=== PATIENT | male | born 1995 | race Caucasian/White ===

== ENCOUNTER 2022-07-04 13:45 | Outpatient (REF) | payer MEDICAID, SELFPAY ==
[2022-07-08 14:48] LABS: Glutamic acid decarboxylase Ab 7 IU/mL (<5)
== END 2022-07-04 13:46 | disposition home or self-care (01) ==
LOC: HO.LAB 13:45
PROVIDERS: PCP Registered Nurse; Visit Provider Internal Medicine Endocrinology, Diabetes & Metabolism
DX: E10.65 Type 1 diabetes mellitus with hyperglycemia (principal)
CPT/HCPCS: 36415; 82947; 86341; 99202

== ENCOUNTER 2022-09-06 17:14 | Emergency (ER) | payer MEDICAID, SELFPAY ==
[2022-09-06 17:19] VITALS: BP 136/91; PULSE 91; RESP 16; TEMP 36.6; O2SAT 98; BMI 24.9
--- NOTE | 2022-09-06 17:26 | ED_ITS ---
HPI - Recheck/Abnormal Lab/Rx General Chief Complaint: Recheck/Abnormal Lab/Rx <JOSEPH Campos - Last Filed: 09/06/22 17:28> Stated Complaint: ?high blood sugar <JOSEPH Campos - Last Filed: 09/06/22 17:28> Time Seen by Provider: 09/06/22 18:18 <JOSEPH Campos - Last Filed: 09/06/22 17:28> Source: patient <Kelsea Cintron MD - Last Filed: 09/06/22 21:38> Mode of arrival: ambulatory <Kelsea Cintron MD - Last Filed: 09/06/22 21:38> History of Present Illness HPI narrative: 27-year-old male with history of type 1 diabetes, states he has a low supply of his regular insulin and noted that he drinks some beer over the weekend and had increased urinary frequency last night but otherwise denies any fever/chills/nausea/vomiting/diarrhea and has otherwise been feeling well. Patient states he did take his long-acting insulin this morning but also had a breakfast chicken fried steak/eggs/juice. <Kelsea Cintron MD - Last Filed: 09/06/22 21:38> Related Data Home Medications: Home Medications Medication Instructions Recorded Confirmed blood sugar diagnostic (FreeStyle #10 ea 07/04/22 Lite Strips) flash glucose scanning reader #1 ea 07/04/22 (FreeStyle Ning 2 [place]) flash glucose sensor (FreeStyle #1 ea 07/04/22 Ning 2 Sensor kit) insulin glargine 100 unit/mL (3 30 unit subcut 07/04/22 mL) subcutaneous pen (Lantus Solostar U-100 Insulin) insulin lispro 100 unit/mL subcut 07/04/22 subcutaneous pen lancets 33 gauge (TRUEplus Lancets) #100 ea 07/04/22 pen needle, diabetic 32 gauge x #50 ea 07/04/22 (BD Ultra-Fine Maria D Pen Needle) Previous Rx's Medication Instructions Recorded insulin glargine 100 unit/mL (3 30 unit (0.3 mL) subcut QAM #15 mL 09/06/22 mL) subcutaneous pen (Lantus Solostar U-100 Insulin) <JOSEPH Campos - Last Filed: 09/06/22 17:28> Allergies/Adverse Reactions: Allergies Allergy/AdvReac Type Severity Reaction Status Date / Time No Known Allergies Allergy Verified 07/04/22 13:30 <JOSEPH Campos - Last Filed: 09/06/22 17:28> Review of Systems Review of Systems: Pertinent positives and negatives as stated in HPI <Kelsea Cintron MD - Last Filed: 09/06/22 21:38> PMFSH Past Medical History Source: nursing notes reviewed <Kelsea Cintron MD - Last Filed: 09/06/22 21:38> Medical History: Medical History Uncontrolled type 1 diabetes mellitus with hyperglycemia <JOSEPH Campos - Last Filed: 09/06/22 17:28> Surgical History: Surgical History Hx of vasectomy <JOSEPH Campos - Last Filed: 09/06/22 17:28> Family History Family History: Family History Father Type 1 diabetes <JOSEPH Campos - Last Filed: 09/06/22 17:28> Social History Social History: Social History Household Members: Significant Other Alcohol intake: current Alcohol intake frequency: a few times a week Patient Tobacco Use Status: Never used Tobacco Smoked in Last 30 Days: No Use of substances other than those prescribed or required for medical reasons: No Advance Directives: No Advance Directives Information Provided: No <JOSEPH Campos - Last Filed: 09/06/22 17:28> Physical Exam Vital Signs: Vital Signs: Last Vital Signs Temp 98.2 F 09/06/22 20:14 Pulse 90 09/06/22 20:14 Resp 18 09/06/22 20:14 BP 147/94 H 09/06/22 20:14 Pulse Ox 98 09/06/22 20:14 O2 Del Method 09/06/22 20:14 BMI result Body Mass Index 24.9 <JOSEPH Campos - Last Filed: 09/06/22 17:28> Vital Signs: Last Vital Signs Temp 98.2 F 09/06/22 20:14 Pulse 90 09/06/22 20:14 Resp 18 09/06/22 20:14 BP 147/94 H 09/06/22 20:14 Pulse Ox 98 09/06/22 20:14 O2 Del Method 09/06/22 20:14 BMI result Body Mass Index 24.9 VITAL SIGNS: Reviewed. GENERAL: Well developed, well nourished, in no acute distress, smells like ketones. HEAD: Normocephalic/atraumatic EYES: PERRLA, EOMI LUNGS: Normal breath sounds, no tachypnea/wheeze/rhonchi/rales. SpO2<98> CARDIOVASCULAR: Regular rate and rhythm without noted murmurs ABDOMEN: Soft, non-tender, non-distended with bowel sounds. MUSCULOSKELETAL: No tenderness, deformities, or effusions noted on gross inspection. EXTREMITIES: No cyanosis, clubbing or edema. SKIN: Inspection of the skin reveals no rashes NEUROLOGIC: Alert and oriented x 4. Strength and sensation to light touch were grossly intact x 4. <Kelsea Cintron MD - Last Filed: 09/06/22 21:38> Course Course Course Narrative: RME - 27 yo male with history of poorly controlled DM1 (A1c ~13%) dx age 21 on Lantus 32 units BID and Lispro SS AC/HS who presents to the ER for evaluation of high blood sugar at home despite insulin compliance. +polyuria and polydipsia. Upset stomach but no N/V/D. POC HI in triage. Will get labs to r/o DKA, although less likely given he has been taking his basal insulin. IVF ordered from triage. <JOSEPH Campos - Last Filed: 09/06/22 17:28> Medications Administered Discontinued Medications Generic Name Dose Route Start Last Admin Trade Name Freq PRN Reason Stop Dose Admin Sodium Chloride 1,000 mls @ 999 mls/hr 09/06/22 17:30 09/06/22 18:25 Ns IVCONT 09/06/22 18:30 999 mls/hr .Q1H1M DANITA Administration Insulin Human Lispro 20 unit 09/06/22 18:49 09/06/22 18:54 Insulin Lispro 100 Unit/Ml 3 Ml Vial SUBCUT 09/06/22 18:50 20 unit ONCE ONE Administration <JOSEPH Campos - Last Filed: 09/06/22 17:28> Medications Administered Discontinued Medications Generic Name Dose Route Start Last Admin Trade Name Nathaniel PRN Reason Stop Dose Admin Sodium Chloride 1,000 mls @ 999 mls/hr 09/06/22 17:30 09/06/22 18:25 Ns IVCONT 09/06/22 18:30 999 mls/hr .Q1H1M DANITA Administration Insulin Human Lispro 20 unit 09/06/22 18:49 09/06/22 18:54 Insulin Lispro 100 Unit/Ml 3 Ml Vial SUBCUT 09/06/22 18:50 20 unit ONCE ONE Administration <Kelsea Cintron MD - Last Filed: 09/06/22 21:38> Medical Decision Making Medical Decision Making [facility] Narrative: 27-year-old male with known type 1 diabetes and although he does smell like ketones, he is not tachypneic nor is he tachycardic. On a quick review of his lab work there is no evidence acidosis or anion gap, on questioning the joseph dickson about the amount of short-acting insulin that he would take for a glucose in the 3-400 range he is endorse that this would be 20 units, I ordered 20 units list pro subcutaneous, patient is receiving IV fluids and acetone levels pending. Lab work will be repeated at the 2 hour selma after initial labs. Patient otherwise appears well. 2051: On review of all investigations, repeat investigations, my interpretation is that patient had an episode of hyper glycemia not consistent with DKA or HHS but with noted dehydration likely a combination of poor diabetic control as well as diet choices. Patient has stated that he is running low on his glucose and has not called his casing splitter, but states he has a follow-up appointment with this casing splitter on September 13. He will be discharged with an insulin pen. <Kelsea Cintron MD - Last Filed: 09/06/22 21:38> Differential Diagnosis Differential Diagnoses: The differential diagnosis associated with the presentation includes <Kelsea Cintron MD - Last Filed: 09/06/22 21:38> Please see the discussion above <Kelsea Cintron MD - Last Filed: 09/06/22 21:38> Lab Data [facility] Lab Attestation statement: I reviewed the patient's lab results. <Kelsea Cintron MD - Last Filed: 09/06/22 21:38> Please see the discussion above <Kelsea Cintron MD - Last Filed: 09/06/22 21:38> Result Diagrams: 09/06/22 17:57 09/06/22 17:57 <JOSEPH Campos - Last Filed: 09/06/22 17:28> Labs: Lab Results 09/06/22 09/06/22 09/06/22 Range/Units 17:25 17:57 17:57 WBC 4.7 L (4.8-10.8) X10*3/uL RBC 5.15 (4.60-5.80) X10*6/uL Hgb 15.8 (14.0-18.0) g/dl Hct 44.1 (42.0-52.0) % MCV 85.6 (80.0-98.0) fL MCH 30.7 (27.0-33.0) pg MCHC 35.8 (31.0-36.0) g/dl RDW 11.9 (11.0-16.0) % Plt Count 151 L (160-400) X10*3/uL MPV 12.3 (9.4-12.4) fL Immature Gran % (Auto) 0.2 (0.0-0.4) % Neut % (Auto) 61.1 (45-73) % Lymph % (Auto) 27.7 (20-40) % [place] % (Auto) 8.3 (2-11) % Eos % (Auto) 2.3 (0-4) % Baso % (Auto) 0.4 (0-2) % Lymph # (Auto) 1.3 (1.2-4.9) X10*3/uL [place] # (Auto) 0.4 (0.1-1.2) X10*3/uL Eos # (Auto) 0.1 (0.0-0.4) X10*3/uL Baso # (Auto) 0.0 (0.0-0.2) X10*3/uL Abs Immat Gran (auto) 0.01 (0.00-0.03) X10*3/uL Absolute Neuts (auto) 2.9 (2.0-8.3) x10*3/uL Absolute Nucleated RBC 0.000 (0.0-0.012) X10*3/uL Nucleated RBC % (auto) 0.0 (0.0-0.2) /100WBC VBG pH (7.32-7.43) VBG pCO2 mmHg VBG pO2 mmHg VBG HCO3 (22-26) mmol/L VBG O2 Saturation % VBG Base Excess mmol/L Sodium 129 L (135-145) mmol/L Potassium 4.7 (3.3-5.1) mmol/L Chloride 95 L (96-108) mmol/L Carbon Dioxide 25 (22-29) mmol/L Anion Gap 14 (12-20) BUN 11 (9-16) mg/dL Creatinine 1.23 (0.5-1.4) mg/dL Estim Creat Clear Calc 98.1 Estimated GFR > 60 POC Glucose > 600 H* (60-115) mg/dL Random Glucose 738 H* (60-115) mg/dL Calcium 9.5 (8.4-10.2) mg/dL Magnesium 1.9 (1.6-2.6) mg/dL Total Bilirubin 0.3 (0.0-1.0) mg/dL Direct Bilirubin < 0.2 (0.0-0.5) mg/dL AST 14 (5-37) U/L ALT 24 (0-40) U/L Alkaline Phosphatase 106 (39-117) U/L Total Protein 6.9 (6.5-8.0) g/dL Albumin 4.3 (3.5-5.0) g/dL Lipase 22 (8-78) U/L Acetone, Qual Negative (Negative) 09/06/22 09/06/22 09/06/22 Range/Units 18:29 19:50 20:17 WBC (4.8-10.8) X10*3/uL RBC (4.60-5.80) X10*6/uL Hgb (14.0-18.0) g/dl Hct (42.0-52.0) % MCV (80.0-98.0) fL MCH (27.0-33.0) pg MCHC (31.0-36.0) g/dl RDW (11.0-16.0) % Plt Count (160-400) X10*3/uL MPV (9.4-12.4) fL Immature Gran % (Auto) (0.0-0.4) % Neut % (Auto) (45-73) % Lymph % (Auto) (20-40) % [place] % (Auto) (2-11) % Eos % (Auto) (0-4) % Baso % (Auto) (0-2) % Lymph # (Auto) (1.2-4.9) X10*3/uL [place] # (Auto) (0.1-1.2) X10*3/uL Eos # (Auto) (0.0-0.4) X10*3/uL Baso # (Auto) (0.0-0.2) X10*3/uL Abs Immat Gran (auto) (0.00-0.03) X10*3/uL Absolute Neuts (auto) (2.0-8.3) x10*3/uL Absolute Nucleated RBC (0.0-0.012) X10*3/uL Nucleated RBC % (auto) (0.0-0.2) /100WBC VBG pH 7.40 (7.32-7.43) VBG pCO2 35 mmHg VBG pO2 89 mmHg VBG HCO3 22 (22-26) mmol/L VBG O2 Saturation 97.0 % VBG Base Excess -1.6 mmol/L Sodium 139 (135-145) mmol/L Potassium 3.8 (3.3-5.1) mmol/L Chloride 103 (96-108) mmol/L Carbon Dioxide 29 (22-29) mmol/L Anion Gap 11 L (12-20) BUN 11 (9-16) mg/dL Creatinine 0.89 (0.5-1.4) mg/dL Estim Creat Clear Calc 135.6 Estimated GFR > 60 POC Glucose 266 H (60-115) mg/dL Random Glucose 205 H (60-115) mg/dL Calcium 9.6 (8.4-10.2) mg/dL Magnesium (1.6-2.6) mg/dL Total Bilirubin (0.0-1.0) mg/dL Direct Bilirubin (0.0-0.5) mg/dL AST (5-37) U/L ALT (0-40) U/L Alkaline Phosphatase (39-117) U/L Total Protein (6.5-8.0) g/dL Albumin (3.5-5.0) g/dL Lipase (8-78) U/L Acetone, Qual (Negative) <JOSEPH Campos - Last Filed: 09/06/22 17:28> Lab Results 09/06/22 09/06/22 09/06/22 Range/Units 17:25 17:57 17:57 WBC 4.7 L (4.8-10.8) X10*3/uL RBC 5.15 (4.60-5.80) X10*6/uL Hgb 15.8 (14.0-18.0) g/dl Hct 44.1 (42.0-52.0) % MCV 85.6 (80.0-98.0) fL MCH 30.7 (27.0-33.0) pg MCHC 35.8 (31.0-36.0) g/dl RDW 11.9 (11.0-16.0) % Plt Count 151 L (160-400) X10*3/uL MPV 12.3 (9.4-12.4) fL Immature Gran % (Auto) 0.2 (0.0-0.4) % Neut % (Auto) 61.1 (45-73) % Lymph % (Auto) 27.7 (20-40) % [place] % (Auto) 8.3 (2-11) % Eos % (Auto) 2.3 (0-4) % Baso % (Auto) 0.4 (0-2) % Lymph # (Auto) 1.3 (1.2-4.9) X10*3/uL [place] # (Auto) 0.4 (0.1-1.2) X10*3/uL Eos # (Auto) 0.1 (0.0-0.4) X10*3/uL Baso # (Auto) 0.0 (0.0-0.2) X10*3/uL Abs Immat Gran (auto) 0.01 (0.00-0.03) X10*3/uL Absolute Neuts (auto) 2.9 (2.0-8.3) x10*3/uL Absolute Nucleated RBC 0.000 (0.0-0.012) X10*3/uL Nucleated RBC % (auto) 0.0 (0.0-0.2) /100WBC VBG pH (7.32-7.43) VBG pCO2 mmHg VBG pO2 mmHg VBG HCO3 (22-26) mmol/L VBG O2 Saturation % VBG Base Excess mmol/L Sodium 129 L (135-145) mmol/L Potassium 4.7 (3.3-5.1) mmol/L Chloride 95 L (96-108) mmol/L Carbon Dioxide 25 (22-29) mmol/L Anion Gap 14 (12-20) BUN 11 (9-16) mg/dL Creatinine 1.23 (0.5-1.4) mg/dL Estim Creat Clear Calc 98.1 Estimated GFR > 60 POC Glucose > 600 H* (60-115) mg/dL Random Glucose 738 H* (60-115) mg/dL Calcium 9.5 (8.4-10.2) mg/dL Magnesium 1.9 (1.6-2.6) mg/dL Total Bilirubin 0.3 (0.0-1.0) mg/dL Direct Bilirubin < 0.2 (0.0-0.5) mg/dL AST 14 (5-37) U/L ALT 24 (0-40) U/L Alkaline Phosphatase 106 (39-117) U/L Total Protein 6.9 (6.5-8.0) g/dL Albumin 4.3 (3.5-5.0) g/dL Lipase 22 (8-78) U/L Acetone, Qual Negative (Negative) 09/06/22 09/06/22 09/06/22 Range/Units 18:29 19:50 20:17 WBC (4.8-10.8) X10*3/uL RBC (4.60-5.80) X10*6/uL Hgb (14.0-18.0) g/dl Hct (42.0-52.0) % MCV (80.0-98.0) fL MCH (27.0-33.0) pg MCHC (31.0-36.0) g/dl RDW (11.0-16.0) % Plt Count (160-400) X10*3/uL MPV (9.4-12.4) fL Immature Gran % (Auto) (0.0-0.4) % Neut % (Auto) (45-73) % Lymph % (Auto) (20-40) % [place] % (Auto) (2-11) % Eos % (Auto) (0-4) % Baso % (Auto) (0-2) % Lymph # (Auto) (1.2-4.9) X10*3/uL [place] # (Auto) (0.1-1.2) X10*3/uL Eos # (Auto) (0.0-0.4) X10*3/uL Baso # (Auto) (0.0-0.2) X10*3/uL Abs Immat Gran (auto) (0.00-0.03) X10*3/uL Absolute Neuts (auto) (2.0-8.3) x10*3/uL Absolute Nucleated RBC (0.0-0.012) X10*3/uL Nucleated RBC % (auto) (0.0-0.2) /100WBC VBG pH 7.40 (7.32-7.43) VBG pCO2 35 mmHg VBG pO2 89 mmHg VBG HCO3 22 (22-26) mmol/L VBG O2 Saturation 97.0 % VBG Base Excess -1.6 mmol/L Sodium 139 (135-145) mmol/L Potassium 3.8 (3.3-5.1) mmol/L Chloride 103 (96-108) mmol/L Carbon Dioxide 29 (22-29) mmol/L Anion Gap 11 L (12-20) BUN 11 (9-16) mg/dL Creatinine 0.89 (0.5-1.4) mg/dL Estim Creat Clear Calc 135.6 Estimated GFR > 60 POC Glucose 266 H (60-115) mg/dL Random Glucose 205 H (60-115) mg/dL Calcium 9.6 (8.4-10.2) mg/dL Magnesium (1.6-2.6) mg/dL Total Bilirubin (0.0-1.0) mg/dL Direct Bilirubin (0.0-0.5) mg/dL AST (5-37) U/L ALT (0-40) U/L Alkaline Phosphatase (39-117) U/L Total Protein (6.5-8.0) g/dL Albumin (3.5-5.0) g/dL Lipase (8-78) U/L Acetone, Qual (Negative) <Kelsea Cintron MD - Last Filed: 09/06/22 21:38> External Record Review External record reviewed: Office record, Outpatient record and Prior outpatient labs <Kelsea Cintron MD - Last Filed: 09/06/22 21:38> Chronic Conditions Patient?s care impacted by: Diabetes <Kelsea Cintron MD - Last Filed: 09/06/22 21:38> Critical Care Time Critical Care Time Critical Care Time: Yes <Kelsea Cintron MD - Last Filed: 09/06/22 21:38> Total Critical Care Time: 45 <Kelsea Cintron MD - Last Filed: 09/06/22 21:38> Attestation: I personally attest to this time spent taking care of the patient. <Kelsea Cintron MD - Last Filed: 09/06/22 21:38> Discharge Plan Discharge Clinical Impression: Uncontrolled type 1 diabetes mellitus with hyperglycemia, Hyperglycemia <JOSEPH Campos - Last Filed: 09/06/22 17:28> Patient Disposition: Home, Self-Care <JOSEPH Campos - Last Filed: 09/06/22 17:28> Instructions: Dehydration (ED), Diabetic Hyperglycemia (ED), Diabetes Type 1: Management (ED) <JOSEPH Campos - Last Filed: 09/06/22 17:28> Additional Instructions: 1. Resume all home medications as prescribed. Continue to drink plenty of water and control the number of carbs that you intake. 2. Please keep your scheduled appointment with Dr. Torres on 09/13/2022 as stated by you. 3. Follow-up with your primary care provider in the next 1-2 days for re- evaluation further outpatient management. Return to the ER for worsening symptoms. <JOSEPH Campos - Last Filed: 09/06/22 17:28> Prescriptions: New insulin glargine [Lantus Solostar U-100 Insulin] 100 unit/mL (3 mL) insulin pen 30 unit subcut QAM Qty: 15 0RF No Action (DME) FreeStyle Ning 2 [place] Misc See Rx Instructions .ROUTE DIRECTED Qty: 1 Rx Instructions: As directed (DME) FreeStyle Ning 2 Sensor Kit See Rx Instructions .ROUTE DIRECTED Qty: 1 Rx Instructions: As directed insulin glargine [Lantus Solostar U-100 Insulin] 100 unit/mL (3 mL) insulin pen 30 unit subcut insulin lispro 100 unit/mL insulin pen subcut (DME) FreeStyle Lite Strips Strip See Rx Instructions .ROUTE QID Qty: 10 Rx Instructions: As directed (DME) pen needle, diabetic [BD Ultra-Fine Maria D Pen Needle] 32 gauge x 5/32 needle See Rx Instructions .ROUTE .MEDSUPPLY Qty: 50 Rx Instructions: As directed 7 times day (DME) lancets [TRUEplus Lancets] 33 gauge misc See Rx Instructions .ROUTE QID Qty: 100 Rx Instructions: As directed <JOSEPH Campos - Last Filed: 09/06/22 17:28> Referrals: CosmeEmily carrizales FNP [Primary Care Provider] - Delvis Torres MD [Physician] - <JOSEPH Campos - Last Filed: 09/06/22 17:28> Stand Alone Forms: Work/School Release <JOSEPH Campos - Last Filed: 09/06/22 17:28>
[2022-09-06 17:28] LABS: Glucose, Whole Blood > 600 mg/dL (60-115)
[2022-09-06 18:05] LABS: MANUAL DIFF FLAG NO
[2022-09-06 18:10] LABS: Basophils Percent Auto 0.4 % (0-2); Eosinophils Absolute Auto 0.1 X10*3/uL (0.0-0.4); Eosinophils Percent Auto 2.3 % (0-4); Hematocrit 44.1 % (42.0-52.0); Hemoglobin 15.8 g/dl (14.0-18.0); Imm Gran Abs Auto 0.01 X10*3/uL (0.00-0.03); Imm Gran Pct Auto 0.2 % (0.0-0.4); Lymphocytes Absolute Auto 1.3 X10*3/uL (1.2-4.9); Lymphocytes Percent Auto 27.7 % (20-40); Mean Corpuscular HGB Conc 35.8 g/dl (31.0-36.0); Mean Corpuscular Hemoglobin 30.7 pg (27.0-33.0); Mean Corpuscular Volume 85.6 fL (80.0-98.0); Mean Platelet Volume 12.3 fL (9.4-12.4); Monocytes Absolute Auto 0.4 X10*3/uL (0.1-1.2); Monocytes Percent Auto 8.3 % (2-11); Neutrophils Absolute Auto 2.9 x10*3/uL (2.0-8.3); Neutrophils Percent Auto 61.1 % (45-73); Platelet Count 151 X10*3/uL (160-400); Red Blood Count 5.15 X10*6/uL (4.60-5.80); Red Cell Distribution Width 11.9 % (11.0-16.0); White Blood Count 4.7 X10*3/uL (4.8-10.8)
[2022-09-06] MEDS: 0.9 % Sodium Chloride 1,000 ML 999 ML IVCONT (18:25)
--- NOTE | 2022-09-06 18:27 | PC.NURSE ---
patient alert, oriented x4. denies N/V. iv started in the left AC and fluids running per MAR. call arriaza placed within reach
[2022-09-06 18:28] LABS: Alanine Aminotransferase 24 U/L (0-40); Albumin Level 4.3 g/dL (3.5-5.0); Alkaline Phosphatase 106 U/L (39-117); Anion Gap 14 (12-20); Aspartate Amino Transferase 14 U/L (5-37); Bilirubin Direct < 0.2 mg/dL (0.0-0.5); Bilirubin Total 0.3 mg/dL (0.0-1.0); Blood Urea Nitrogen 11 mg/dL (9-16); Calcium 9.5 mg/dL (8.4-10.2); Carbon Dioxide 25 mmol/L (22-29); Chloride 95 mmol/L (96-108); Creatinine Clr Calc Pharmacy 98.1; Estimated Glomerular Filt Rate > 60; Glucose Random 738 mg/dL (60-115); Lipase 22 U/L (8-78); Magnesium 1.9 mg/dL (1.6-2.6); Potassium 4.7 mmol/L (3.3-5.1); Sodium 129 mmol/L (135-145); Total Protein 6.9 g/dL (6.5-8.0)
[2022-09-06 18:35] VITALS: BP 141/83; PULSE 80; RESP 13; TEMP 36.7; O2SAT 98
[2022-09-06 18:37] LABS: VBG Base Excess -1.6 mmol/L; VBG HCO3 22 mmol/L (22-26); VBG pCO2 35 mmHg; VBG pO2 89 mmHg
[2022-09-06 18:39] LABS: Venous Blood Gas Refer to POC result
[2022-09-06] MEDS: Insulin Lispro 100 UNIT/ML 3 ML VIAL 20 UNIT SUBCUT (18:54)
[2022-09-06 19:57] LABS: Glucose, Whole Blood 266 mg/dL (60-115)
[2022-09-06 20:14] VITALS: BP 147/94; PULSE 90; RESP 18; TEMP 36.8; O2SAT 98
--- NOTE | 2022-09-06 20:15 | PC.NURSE ---
resting quietly. aware of plan for repeat labs and depending on results, possible 2nd liter of NS. denies all complaints. plans to call endo for insulin Rx tomorrow am. NAD. skin pwd. unlabored resp.
[2022-09-06 20:36] LABS: Acetone, serum QL Negative (Negative)
[2022-09-06 20:42] LABS: Anion Gap 11 (12-20); Blood Urea Nitrogen 11 mg/dL (9-16); Calcium 9.6 mg/dL (8.4-10.2); Carbon Dioxide 29 mmol/L (22-29); Chloride 103 mmol/L (96-108); Creatinine Clr Calc Pharmacy 135.6; Estimated Glomerular Filt Rate > 60; Glucose Random 205 mg/dL (60-115); Potassium 3.8 mmol/L (3.3-5.1); Sodium 139 mmol/L (135-145)
[2022-09-08 09:02] LABS: VBG HCO3 22 mmol/L (22-26); VBG pCO2 35 mmHg; VBG pH 7.41 (7.32-7.43); VBG pO2 71 mmHg
== END 2022-09-06 21:58 | disposition home or self-care (01) ==
PROVIDERS: Physician Assistant; Emergency Provider Student in an Organized Health Care Education/Training Program; PCP Registered Nurse
DX: E10.65 Type 1 diabetes mellitus with hyperglycemia (principal); Z79.899 Other long term (current) drug therapy; Z79.4 Long term (current) use of insulin
CPT/HCPCS: 36415; 80048; 80076; 82009; 82803; 82947; 83690; 83735; 85025; 99283; 99284

== ENCOUNTER → 2022-10-03 08:39 | Outpatient (BNVA) | payer MEDICAID, SELFPAY | PROVIDERS: PCP Registered Nurse; Visit Provider Internal Medicine Endocrinology, Diabetes & Metabolism | DX: E10.65 Type 1 diabetes mellitus with hyperglycemia (principal) | CPT/HCPCS: 82947; 83036; 99212 ==

== ENCOUNTER → 2022-10-04 10:05 | Outpatient (BNVA) | payer MEDICAID, SELFPAY | PROVIDERS: PCP Registered Nurse; Visit Provider Dietitian, Registered | DX: E10.65 Type 1 diabetes mellitus with hyperglycemia (principal) | CPT/HCPCS: 97802 ==

== ENCOUNTER 2023-03-07 17:38 | Outpatient (REF) | payer MEDICAID, SELFPAY ==
[2023-03-07 20:13] LABS: Influenza A PCR NEGATIVE (Negative); Influenza B PCR NEGATIVE (Negative); Resp Syncy Virus RNA Qual PCR NEGATIVE (Negative); SARS COV2 PCR INHOUSE NEGATIVE (Negative)
== END 2023-03-07 17:39 | disposition home or self-care (01) ==
LOC: HO.HHCLNP 17:38
PROVIDERS: Visit Provider Emergency Medicine
DX: J06.9 Acute upper respiratory infection, unspecified (principal)
CPT/HCPCS: 0241U; 87070

== ENCOUNTER 2023-08-16 03:39 | Emergency (ER) | payer MEDICAID, SELFPAY ==
--- NOTE | 2023-08-16 | ECG_ITS ---
Test Reason : CHEST PAIN Blood Pressure : / mmHG Vent. Rate : 078 BPM Atrial Rate : 078 BPM P-R Int : 168 ms QRS Dur : 084 ms QT Int : 420 ms P-R-T Axes : 055 059 046 degrees QTc Int : 478 ms Normal sinus rhythm Nonspecific ST abnormality Abnormal ECG No previous ECGs available Referred By: Generic ED Physician Electronically Signed By:CARRIE MIRELES MD
[2023-08-16 03:55] VITALS: BMI 24.6
--- NOTE | 2023-08-16 04:01 | ED_ITS ---
HPI - Chest Pain General Chief Complaint: Chest Pain Stated Complaint: cp Time Seen by Provider: 08/16/23 04:00 History of Present Illness HPI narrative: Patient type 1 diabetic apparently was walking for last 4 hours as his car broke down when he was walking [place] noticed shortness of breath with chest palpitation pain tightness feeling it does have history of asthma after resting felt better no history of coronary artery disease blood sugar by EMS was 390 patient missed his insulin tonight no history of substance abuse no chest pain at this time Related Data Home Medications Medication Instructions Recorded Confirmed blood sugar diagnostic (FreeStyle #10 ea 07/04/22 Lite Strips) flash glucose scanning reader #1 ea 07/04/22 (FreeStyle Ning 2 [place]) flash glucose sensor (FreeStyle #1 ea 07/04/22 Ning 2 Sensor kit) insulin glargine 100 unit/mL (3 30 unit subcut 07/04/22 mL) subcutaneous pen (Lantus Solostar U-100 Insulin) insulin lispro 100 unit/mL subcut 07/04/22 subcutaneous pen lancets 33 gauge (TRUEplus Lancets) #100 ea 07/04/22 pen needle, diabetic 32 gauge x #50 ea 07/04/22 5/32 (BD Ultra-Fine Maria D Pen Needle) alcohol swabs (Alcohol Prep Pads) 0 pad topical 10/03/22 blood-glucose meter (FreeStyle #1 ea 10/03/22 [place] Lite kit) insulin glargine 100 unit/mL (3 32 unit subcut QAM 10/03/22 mL) subcutaneous pen (Lantus Solostar U-100 Insulin) olmesartan 5 mg tablet 5 mg PO QAM 10/03/22 Previous Rx's Medication Instructions Recorded albuterol sulfate 90 mcg/actuation 2 puff inhalation Q4-6H PRN 08/16/23 aerosol inhaler (ProAir HFA) shortness of breath or wheezing #8.5 grams Allergies Allergy/AdvReac Type Severity Reaction Status Date / Time No Known Allergies Allergy Verified 10/03/22 08:43 Review of Systems 2 Review of Systems: Yes all other systems are reviewed and are negative [facility] Past Medical History Medical History Uncontrolled type 1 diabetes mellitus with hyperglycemia Surgical History Hx of vasectomy Family History Family History Father Type 1 diabetes Social History Social History Household Members: Significant Other Alcohol intake: current Alcohol intake frequency: a few times a week Patient Tobacco Use Status: Never used Tobacco Smoked in Last 30 Days: No Advance Directives: No Advance Directives Information Provided: Yes Physical Exam 2 Vital Signs: Vital Signs: Last Vital Signs Temp 97.5 F 08/16/23 04:02 Pulse 80 08/16/23 04:02 Resp 15 08/16/23 04:02 BP 138/97 H 08/16/23 04:02 Pulse Ox 97 08/16/23 04:02 O2 Del Method Room Air 08/16/23 04:02 BMI result Body Mass Index 24.6 Appearance: Alert. Oriented X3. No acute distress. ENT: Pharynx normal. Oral Mucosa moist Neck: Normal inspection. Neck supple. CVS: Normal heart rate and rhythm. Pulses normal. Respiratory: No respiratory distress. Equal air entry bilateral, no wheezing/rales/rhonchi Abdomen: Soft and nontender. Bowel sounds are present, Skin: Skin warm and dry. Normal skin color. Normal skin turgor. Extremities: No lower extremity edema. No calf tenderness Neuro: Oriented X 3. Medications Administered Discontinued Medications Generic Name Dose Route Start Last Admin Trade Name Freq PRN Reason Stop Dose Admin Sodium Chloride 1,000 mls @ 999 mls/hr 08/16/23 04:17 08/16/23 05:34 Ns IV 08/16/23 05:17 Infused .Q1H1M ONE Infusion Insulin Glargine 32 unit 08/16/23 04:16 08/16/23 04:27 Insulin Glargine,Hum.Rec.Anlog 100 Unit/Ml 10 Ml Vial SUBCUT 08/16/23 04:17 32 unit ONCE ONE Administration Insulin Human Lispro 12 unit 08/16/23 04:16 08/16/23 04:27 Insulin Lispro 100 Unit/Ml 3 Ml Vial SUBCUT 08/16/23 04:17 12 unit ONCE ONE Administration Medical Decision Making Lab Data [facility] Lab Attestation statement: I reviewed the patient's lab results. 08/16/23 04:06 08/16/23 04:06 Labs: Lab Results 08/16/23 08/16/23 08/16/23 Range/Units 04:06 04:25 05:27 WBC 6.6 (4.8-10.8) X10*3/uL RBC 5.64 (4.60-5.80) X10*6/uL Hgb 16.9 (14.0-18.0) g/dl Hct 45.9 (42.0-52.0) % MCV 81.4 (80.0-98.0) fL MCH 30.0 (27.0-33.0) pg MCHC 36.8 H (31.0-36.0) g/dl RDW 11.7 (11.0-16.0) % Plt Count 174 (160-400) X10*3/uL MPV 12.0 (9.4-12.4) fL Immature Gran % (Auto) 0.3 (0.0-0.4) % Neut % (Auto) 66.7 (45-73) % Lymph % (Auto) 24.0 (20-40) % Stark % (Auto) 5.9 (2-11) % Eos % (Auto) 2.6 (0-4) % Baso % (Auto) 0.5 (0-2) % Lymph # (Auto) 1.6 (1.2-4.9) X10*3/uL Stark # (Auto) 0.4 (0.1-1.2) X10*3/uL Eos # (Auto) 0.2 (0.0-0.4) X10*3/uL Baso # (Auto) 0.0 (0.0-0.2) X10*3/uL Abs Immat Gran (auto) 0.02 (0.00-0.03) X10*3/uL Absolute Neuts (auto) 4.4 (2.0-8.3) x10*3/uL Absolute Nucleated RBC 0.000 (0.0-0.012) X10*3/uL Nucleated RBC % (auto) 0.0 (0.0-0.2) /100WBC Sodium 134 L (135-145) mmol/L Potassium 4.0 (3.3-5.1) mmol/L Chloride 96 (96-108) mmol/L Carbon Dioxide 28 (22-29) mmol/L Anion Gap 14 (12-20) BUN 15 (9-16) mg/dL Creatinine 1.00 (0.5-1.4) mg/dL Estim Creat Clear Calc 112.5 Estimated GFR > 60 POC Glucose 396 H* 304 H (60-115) mg/dL Random Glucose 408 H* (60-115) mg/dL Calcium 9.3 (8.4-10.2) mg/dL Total Bilirubin 0.5 (0.0-1.0) mg/dL AST 12 (5-37) U/L ALT 19 (0-40) U/L Alkaline Phosphatase 124 H (39-117) U/L Troponin I High Sens < 2.7 (<3.5-35.0) ng/L Total Protein 7.1 (6.5-8.0) g/dL Albumin 4.3 (3.5-5.0) g/dL 08/16/23 Range/Units 06:19 WBC (4.8-10.8) X10*3/uL RBC (4.60-5.80) X10*6/uL Hgb (14.0-18.0) g/dl Hct (42.0-52.0) % MCV (80.0-98.0) fL MCH (27.0-33.0) pg MCHC (31.0-36.0) g/dl RDW (11.0-16.0) % Plt Count (160-400) X10*3/uL MPV (9.4-12.4) fL Immature Gran % (Auto) (0.0-0.4) % Neut % (Auto) (45-73) % Lymph % (Auto) (20-40) % Stark % (Auto) (2-11) % Eos % (Auto) (0-4) % Baso % (Auto) (0-2) % Lymph # (Auto) (1.2-4.9) X10*3/uL Stark # (Auto) (0.1-1.2) X10*3/uL Eos # (Auto) (0.0-0.4) X10*3/uL Baso # (Auto) (0.0-0.2) X10*3/uL Abs Immat Gran (auto) (0.00-0.03) X10*3/uL Absolute Neuts (auto) (2.0-8.3) x10*3/uL Absolute Nucleated RBC (0.0-0.012) X10*3/uL Nucleated RBC % (auto) (0.0-0.2) /100WBC Sodium (135-145) mmol/L Potassium (3.3-5.1) mmol/L Chloride (96-108) mmol/L Carbon Dioxide (22-29) mmol/L Anion Gap (12-20) BUN (9-16) mg/dL Creatinine (0.5-1.4) mg/dL Estim Creat Clear Calc Estimated GFR POC Glucose 248 H (60-115) mg/dL Random Glucose (60-115) mg/dL Calcium (8.4-10.2) mg/dL Total Bilirubin (0.0-1.0) mg/dL AST (5-37) U/L ALT (0-40) U/L Alkaline Phosphatase (39-117) U/L Troponin I High Sens (<3.5-35.0) ng/L Total Protein (6.5-8.0) g/dL Albumin (3.5-5.0) g/dL Independent Interpretation I performed an independent interpretation of an: EKG Interpretation: Normal sinus rhythm heart rate 78 beats per minute normal interval normal axis no acute ST T wave changes no acute ischemia Discharge Plan Discharge Clinical Impression: Atypical chest pain, Uncontrolled type 1 diabetes mellitus with hyperglycemia Patient Disposition: Home, Self-Care Instructions: Chest Pain (ED), Diabetes Type 1: Management (ED) Additional Instructions: Take your insulin on time Drink plenty of fluids Use inhaler for asthma every 4 hours as needed Follow with PCP if any concerns Prescriptions: New albuterol sulfate [ProAir HFA] 90 mcg/actuation HFA aerosol inhaler 2 puff inhalation Q4-6H PRN (Reason: shortness of breath or wheezing) Qty: 8.5 0RF No Action (DME) FreeStyle Ning 2 [place] Misc See Rx Instructions .ROUTE DIRECTED Qty: 1 Rx Instructions: As directed (DME) FreeStyle Ning 2 Sensor Kit See Rx Instructions .ROUTE DIRECTED Qty: 1 Rx Instructions: As directed insulin glargine [Lantus Solostar U-100 Insulin] 100 unit/mL (3 mL) insulin pen 30 unit subcut insulin lispro 100 unit/mL insulin pen subcut (DME) FreeStyle Lite Strips Strip See Rx Instructions .ROUTE QID Qty: 10 Rx Instructions: As directed (DME) pen needle, diabetic [BD Ultra-Fine Maria D Pen Needle] 32 gauge x 5/32 needle See Rx Instructions .ROUTE .MEDSUPPLY Qty: 50 Rx Instructions: As directed 7 times day (DME) lancets [TRUEplus Lancets] 33 gauge misc See Rx Instructions .ROUTE QID Qty: 100 Rx Instructions: As directed insulin glargine [Lantus Solostar U-100 Insulin] 100 unit/mL (3 mL) insulin pen 32 unit subcut QAM alcohol swabs [Alcohol Prep Pads] Pads, Medicated 0 pad topical olmesartan 5 mg tablet 5 mg PO QAM (DME) blood-glucose meter [FreeStyle [place] Lite] Kit See Rx Instructions .ROUTE QID Qty: 1 Rx Instructions: As directed Interventions: ED Discharge Assessment Last Done: 08/16/23 06:42
[2023-08-16 04:02] VITALS: BP 138/97; PULSE 80; RESP 15; TEMP 36.4; O2SAT 97
[2023-08-16 04:12] LABS: Basophils Percent Auto 0.5 % (0-2); Eosinophils Absolute Auto 0.2 X10*3/uL (0.0-0.4); Eosinophils Percent Auto 2.6 % (0-4); Hematocrit 45.9 % (42.0-52.0); Hemoglobin 16.9 g/dl (14.0-18.0); Imm Gran Abs Auto 0.02 X10*3/uL (0.00-0.03); Imm Gran Pct Auto 0.3 % (0.0-0.4); Lymphocytes Absolute Auto 1.6 X10*3/uL (1.2-4.9); MANUAL DIFF FLAG NO; Mean Corpuscular HGB Conc 36.8 g/dl (31.0-36.0); Mean Corpuscular Volume 81.4 fL (80.0-98.0); Monocytes Absolute Auto 0.4 X10*3/uL (0.1-1.2); Monocytes Percent Auto 5.9 % (2-11); Neutrophils Absolute Auto 4.4 x10*3/uL (2.0-8.3); Neutrophils Percent Auto 66.7 % (45-73); Platelet Count 174 X10*3/uL (160-400); Red Blood Count 5.64 X10*6/uL (4.60-5.80); Red Cell Distribution Width 11.7 % (11.0-16.0); White Blood Count 6.6 X10*3/uL (4.8-10.8)
[2023-08-16] MEDS: Insulin Lispro 100 UNIT/ML 3 ML VIAL 12 UNIT SUBCUT (04:27)
[2023-08-16] MEDS: Insulin Glargine,Hum.rec.anlog 100 UNIT/ML 10 ML VIAL 32 UNIT SUBCUT (04:27)
[2023-08-16] MEDS: 0.9 % Sodium Chloride 1,000 ML 999 ML IV (04:27)
[2023-08-16 04:30] LABS: Alanine Aminotransferase 19 U/L (0-40); Albumin Level 4.3 g/dL (3.5-5.0); Alkaline Phosphatase 124 U/L (39-117); Anion Gap 14 (12-20); Aspartate Amino Transferase 12 U/L (5-37); Bilirubin Total 0.5 mg/dL (0.0-1.0); Blood Urea Nitrogen 15 mg/dL (9-16); Calcium 9.3 mg/dL (8.4-10.2); Carbon Dioxide 28 mmol/L (22-29); Chloride 96 mmol/L (96-108); Creatinine Clr Calc Pharmacy 112.5; Estimated Glomerular Filt Rate > 60; Sodium 134 mmol/L (135-145); Total Protein 7.1 g/dL (6.5-8.0)
[2023-08-16 04:31] LABS: Glucose Random 408 mg/dL (60-115)
[2023-08-16 04:41] LABS: Troponin-I High Sensitivity < 2.7 ng/L (<3.5-35.0)
[2023-08-16 05:31] LABS: Glucose, Whole Blood 304 mg/dL (60-115)
[2023-08-16 05:31] LABS: Glucose, Whole Blood 396 mg/dL (60-115)
[2023-08-16 06:22] LABS: Glucose, Whole Blood 248 mg/dL (60-115)
== END 2023-08-16 07:27 | disposition home or self-care (01) ==
PROVIDERS: Emergency Provider Internal Medicine; PCP Registered Nurse
DX: R07.89 Other chest pain (principal); E10.65 Type 1 diabetes mellitus with hyperglycemia; Z79.4 Long term (current) use of insulin; Z79.899 Other long term (current) drug therapy
CPT/HCPCS: 36415; 80053; 82947; 84484; 85025; 93005; 96360; 99284; 99285

== ENCOUNTER → 2023-08-16 03:58 | Outpatient (BNV) | payer MEDICAID, SELFPAY | PROVIDERS: Emergency Provider Internal Medicine; PCP Registered Nurse; Visit Provider Internal Medicine Cardiovascular Disease | DX: R07.9 Chest pain, unspecified (principal) | CPT/HCPCS: 93010 ==

== ENCOUNTER 2023-11-28 13:20 | Outpatient (REF) | payer OTHER, SELFPAY ==
[2023-11-28 16:12] LABS: MANUAL DIFF FLAG NO
[2023-11-28 16:23] LABS: Basophils Percent Auto 0.7 % (0-2); Eosinophils Absolute Auto 0.1 X10*3/uL (0.0-0.4); Eosinophils Percent Auto 2.5 % (0-4); Hematocrit 48.5 % (42.0-52.0); Hemoglobin 17.3 g/dl (14.0-18.0); Imm Gran Abs Auto 0.01 X10*3/uL (0.00-0.03); Imm Gran Pct Auto 0.2 % (0.0-0.4); Lymphocytes Absolute Auto 1.3 X10*3/uL (1.2-4.9); Lymphocytes Percent Auto 29.3 % (20-40); Mean Corpuscular HGB Conc 35.7 g/dl (31.0-36.0); Mean Corpuscular Hemoglobin 30.5 pg (27.0-33.0); Mean Corpuscular Volume 85.5 fL (80.0-98.0); Mean Platelet Volume 13.1 fL (9.4-12.4); Monocytes Absolute Auto 0.4 X10*3/uL (0.1-1.2); Monocytes Percent Auto 8.9 % (2-11); Neutrophils Absolute Auto 2.6 x10*3/uL (2.0-8.3); Neutrophils Percent Auto 58.4 % (45-73); Platelet Count 170 X10*3/uL (160-400); Red Blood Count 5.67 X10*6/uL (4.60-5.80); Red Cell Distribution Width 12.2 % (11.0-16.0); White Blood Count 4.4 X10*3/uL (4.8-10.8)
[2023-11-28 16:40] LABS: Alanine Aminotransferase 18 U/L (0-40); Albumin Level 4.6 g/dL (3.5-5.0); Alkaline Phosphatase 132 U/L (39-117); Anion Gap 16 (12-20); Aspartate Amino Transferase 13 U/L (5-37); Bilirubin Total 0.4 mg/dL (0.0-1.0); Blood Urea Nitrogen 12 mg/dL (9-16); C Reactive Protein < 0.10 mg/dL (< or = 0.50); Carbon Dioxide 26 mmol/L (22-29); Chloride 96 mmol/L (96-108); Estimated Glomerular Filt Rate > 60; Glucose Random 478 mg/dL (60-115); Potassium 4.5 mmol/L (3.3-5.1); Sodium 133 mmol/L (135-145); Total Protein 7.5 g/dL (6.5-8.0)
[2023-11-28 16:52] LABS: Free T4 (Free Thyroxine) 0.98 ng/dL (0.71-1.85); TSH reflex Free T4 0.38 uIU/mL (0.32-4.0)
[2023-11-28 17:23] LABS: Erythrocyte Sedimentation Rate 2 MM/HR (0-15)
[2023-11-28 17:39] LABS: Creatinine Urine 37.28 mg/dL; Microalbumin Urine < 5.0 mg/L
== END 2023-11-28 13:21 | disposition home or self-care (01) ==
LOC: HO.HHCL 13:20
PROVIDERS: Visit Provider Registered Nurse
DX: E10.65 Type 1 diabetes mellitus with hyperglycemia (principal); R19.5 Other fecal abnormalities
CPT/HCPCS: 36415; 80053; 82043; 82570; 84439; 84443; 85025; 85652; 86140

== ENCOUNTER 2024-02-12 16:04 | Outpatient (AMB) | payer OTHER, SELFPAY ==
--- NOTE | 2024-02-12 16:04 | A.OFFVIS_ITS ---
Vital Signs 02/12/24 16:08 Height 5 ft 10 in Weight 174 lb 2.643 oz BMI 25.0 BP 136/90 H Blood Pressure Location Rt brachial Position Sitting Pulse 78 Pulse Source Pulse Oximeter Intake Visit Reasons: Uncontrolled T1DM/LVM Intake Note: New Patient presents today for to establish treatment for Type 1 Diabetes Mellitus: Last Diabetic eye exam was on: About 6 months ago. Last Podiatry exam was on: Does not see a [facility] [employer] Most recent HbA1c: >14.0%, 02/12/2024 Random Glucose- 478 mg/dL, 4:16 PM, Today Sheet Turner Required: No Accompanied by: Self / Same As Patient Allergies No Known Allergies Allergy (Verified 02/12/24 16:05) HPI Comments Details: Details 28 YO M with is seen in consultation for T1DM at the request of PCP. Initially diagnosed with T1DM in 2017 when presented with hospitalization . Was initially started on treatment with insulin . Current regimen: skipping insulin at times Lantus 32 units Humalog scale starting with 6 units for POC 150-200 increasing by 2 units He has not taken insulin in several weeks. He denies nausea, vomiting, weakness. He is given 10 units of Humalog in the office. He declines ER eval against medical advice. . Treats lows with OJ or candy . Checks sugar after to ensure it is rising. Follows the rule of 15's. Family history of autoimmunity in Father have Type 1 DM Has eyes checked yearly, last eye exam earlier this year, no retinopathy. Denies neuropathy,not sees podiatry. Denies nephropathy, Not on KWAN/ARB. Has HLD, Not on statin. Denies history of CAD. Had diabetes education in past . Diet/Carb counting: No +prior episodes of DKA at time of admission, Denies prior severe episodes of hypoglycemia requiring help or hospitalization. [facility] Medical History Uncontrolled type 1 diabetes mellitus with hyperglycemia Surgical History Hx of vasectomy Family History Father Type 1 diabetes Social History Household Members: Significant Other Alcohol intake: current Alcohol intake frequency: a few times a week Patient Tobacco Use Status: Never used Tobacco Physical Exam Vital Signs: BMI result Body Mass Index 25.0 Const General: cooperative, healthy appearing and no acute distress Nutritional Appearance: average body habitus Orientation/consciousness: patient oriented x3 Neck Neck: Yes normal visual inspection Thyroid: Thyroid normal Resp Effort & Inspection: normal respiratory effort Auscultation: clear to auscultation bilaterally Cardio Jugular venous distension: no JVD Rate: regular rate Rhythm: regular rhythm Heart sounds: S1 normal heart sound present and S2 normal heart sound present Neuro General: patient oriented x3 Results AMB Hemoglobin A1c AMB Hemoglobin A1c > 14.0 % Last Edit by JOSEPH Sutton on 02/12/24 16 :25 Assessment & Plan Assessment & Plan (1) Uncontrolled type 1 diabetes mellitus with hyperglycemia: Code(s): E10.65 - Type 1 diabetes mellitus with hyperglycemia Category: Medical Plan: Poor diabetic control in a type 1 diabetic. A1c in the office today 14% after not taking insulin for several weeks. He declined ER evaluation and treatment. He was advised that high sugarscan lead to diabetic ketoacidosis and . He was given 10 units of insulin and he will start a freestyle Ning 3 trial. In the event that this does not get covered by his insurance I have also sent Ning 2 to his pharmacy and given him a new scale along with Tresiba. Tresiba 34 units. Humalog 100-150 6 units, 151-208 units, 201-250 10 units, 251-312 units, 301-18506 units, over 350 16 unitover 400 16 units and go to ER. He will go home and check his urine for ketones if positive or sugars were not come down he will go to the ER. He is interested in an insulin pump and I advised him that if we will work closely with him over the next month or 2 that this could be arranged. He would need to show that he has a responsibility to wear an insulin pump He will return in 2-3 days sooner prn Orders: Orders AMB Hemoglobin A1c Today E11.9 - Type 2 diabetes mellitus without complications Medications: New acetone (urine) test (Ketone Urine Test strips) As directed prn tid 50 ea 1RF E10.65 - Type 1 diabetes mellitus with hyperglycemia flash glucose sensor (FreeStyle Ning 2 Sensor kit) As directed every 14 days 2 ea 6RF insulin degludec (Tresiba FlexTouch U-200 insulin) 34 units (0.17 mL) subcut BEDTIME 30 days 5.1 mL 3RF E10.65 - Type 1 diabetes mellitus with hyperglycemia Coding Level of Care Code Est Pt Level 5 (37053) Complex EM visit Add On G2211 Diagnoses Uncontrolled type 1 diabetes mellitus with hyperglycemia E10.65 Time Spent (min) 60 Comment Time spent reviewing labs/previous provider notes, face to face, chart documentation
[2024-02-12 16:08] VITALS: BP 136/90; PULSE 78; BMI 25.0
[2024-02-12 16:19] LABS: Glucose, Whole Blood 478 mg/dL (60-115)
== END 2024-02-12 16:53 | disposition home or self-care (01) ==
PROVIDERS: PCP Registered Nurse; Visit Provider Nurse Practitioner Adult Health
DX: E11.9 Type 2 diabetes mellitus without complications (principal); E10.65 Type 1 diabetes mellitus with hyperglycemia
CPT/HCPCS: 99215; 99417; G2211

== ENCOUNTER → 2024-02-12 16:04 | Outpatient (BNVA) | payer OTHER, SELFPAY | PROVIDERS: PCP Registered Nurse; Visit Provider Nurse Practitioner Adult Health | DX: E10.65 Type 1 diabetes mellitus with hyperglycemia (principal) | CPT/HCPCS: 99202; 82947; 83036; 99212 ==

== ENCOUNTER 2024-07-28 10:38 | Inpatient (IN) | payer OTHER, SELFPAY ==
[2024-07-28] VITALS (7 sets, daily range): BP systolic 128–149; BP diastolic 74–96; PULSE 87–104; RESP 16–20; TEMP 36.4–37.9; O2SAT 98–100; BMI 23.7
--- NOTE | ~2024-07-28 | XR_ITS ---
EXAMINATION: XR CHEST CLINICAL INFORMATION: cough, fever COMPARISON: None available. TECHNIQUE: 2 views of the chest were obtained. FINDINGS: Haziness in the right perihilar region. No pleural effusion or pneumothorax. Heart silhouette appears normal in size. Osseous structures are intact. XR/XR chest 2V IMPRESSION: Acute airspace disease in the right middle lobe in the correct clinical settings. Electronically signed by: Mauro Reina MD 07/28/2024 12:22 PM [facility]
--- NOTE | 2024-07-28 11:33 | ED_ITS ---
HPI - URI/Sore Throat General Chief Complaint: Upper Respiratory Symptoms Stated Complaint: fever vomiting diarrhea abd pain cough Time Seen by Provider: 07/28/24 12:36 Source: patient and old records reviewed Mode of arrival: ambulatory Limitations: no limitations History of Present Illness ED Provider: [facility] Narrative: 29 yo male with PMH of IDDM not checking sugars was in [place] now reports since yesterday dry cough with chest wall pain and feels body aches, no vaccines against flu. He notes no sick contacts, pos diarrhea and vomiting. He states he feels better with nyquil. He denies any other complaints. He is known to have poorly controlled. DM. He has no pain in chest except with cough. He feels his breathing is okay. Symptoms started 3 days ago MD elicited complaint: fever and cough Onset (ago): day(s) (3) Consistency: intermittent Severity: moderate Description of mucous: yellow Able to tolerate fluids by mouth: Yes Exacerbating factors: other (coughing) Relieving factors: nothing Context: recent travel Associated symptoms: fever, chills, cough, chest pain, nausea, vomiting and diarrhea Treatments prior to arrival: cold medicine Related Data Home Medications ?Medication ?Instructions ?Recorded ?Confirmed blood sugar diagnostic (FreeStyle #10 ea 07/04/22 Lite Strips) flash glucose scanning reader #1 ea 07/04/22 (FreeStyle Ning 2 [place]) lancets 33 gauge (TRUEplus Lancets) #100 ea 07/04/22 pen needle, diabetic 32 gauge x #50 ea 07/04/22 5/32 (BD Ultra-Fine Maria D Pen Needle) alcohol swabs (Alcohol Prep Pads) 0 pad topical 10/03/22 blood-glucose meter (FreeStyle #1 ea 10/03/22 [place] Lite kit) olmesartan 5 mg tablet 5 mg PO QAM 10/03/22 Previous Rx's ?Medication ?Instructions ?Recorded albuterol sulfate 90 mcg/actuation 2 puff inhalation Q4-6H PRN 08/16/23 aerosol inhaler (ProAir HFA) shortness of breath or wheezing #8.5 grams acetone (urine) test (Ketone Urine #50 ea 02/12/24 Test strips) flash glucose sensor (FreeStyle #2 ea 02/12/24 Ning 2 Sensor kit) insulin degludec 200 unit/mL (3 34 unit (0.17 mL) subcut BEDTIME 02/12/24 mL) subcutaneous pen (Tresiba 30 days #5.1 mL FlexTouch U-200 insulin) Allergies Allergy/AdvReac Type Severity Reaction Status Date / Time No Known Allergies Allergy Verified 07/28/24 11:37 Review of Systems 2 Review of Systems: Constitutional : No Weight loss, pos Fever, pos Chills ENT/Mouth : No sore throat, No Rhinorrhea Eyes: No Swelling, No Redness Cardiovascular : No Chest Pain, No SOB, NoEdema Respiratory : pos Cough, pos Sputum, No Wheezing Gastrointestinal : Positive Nausea, Positive Vomiting, positive Diarrhea, no abdominal Pain, No Hematochezia, No Melena Genitourinary : No Dysuria, No Urinary Frequency, No Hematuria, No Urgency Musculoskeletal : No joint pain, No Myalgias, No Joint Swelling Skin : No Skin Lesions, No rash Neuro : No Weakness, No Numbness, No Dizziness, No Headache Psych : No Anxiety/Panic, No Depression All other systems reviewed and are negative. [facility] Past Medical History Attestation statement: The following information was validated with the patient. Source: old records reviewed Medical History Uncontrolled type 1 diabetes mellitus with hyperglycemia Surgical History Hx of vasectomy Family History Family History Father Type 1 diabetes Social History Social History Household Members: Significant Other Alcohol intake: current Alcohol intake frequency: a few times a week Patient Tobacco Use Status: Never used Tobacco Advance Directives: No Advance Directives Information Provided: Yes Do you have a plan to hurt others: No Plan Physical Exam 2 Vital Signs: Vital Signs: Last Vital Signs Temp 100.2 F 07/28/24 11:32 Pulse 104 H 07/28/24 11:32 Resp 16 07/28/24 11:32 BP 149/92 H 07/28/24 11:32 Pulse Ox 98 07/28/24 11:32 O2 Del Method Room Air 07/28/24 11:32 BMI result Body Mass Index 23.7 Appearance: Alert. Oriented X3. No acute distress. Eyes: Pupils equal, round and reactive to light. ENT: Pharynx normal. Neck: Normal inspection. Neck supple. CVS: tachyardic heart rate and rhythm. Pulses normal. Respiratory: No respiratory distress. Breath sounds R base diminished Abdomen: Soft and nontender. Skin: Skin warm and dry. Normal skin color. Normal skin turgor. Extremities: No lower extremity edema. No calf ttp Neuro: Oriented X 3. No motor deficit. No sensory deficit. CN2-12 intact Course Course Course Narrative: sepsis alert delayed due to patient being in waiting room as well as difficult IV stick Reevaluation(s) Reevaluation #1: no gap, HCO3 normal, not in DKA Medications Administered Discontinued Medications Generic Name Dose Route Start Last Admin Trade Name Nathaniel PRN Reason Stop Dose Admin Ceftriaxone Sodium 1 gm 07/28/24 12:53 07/28/24 13:55 Ceftriaxone Sodium 1 Gm Vial IVPUSH 07/28/24 12:54 1 gm ONCE ONE Administration Sodium Chloride 1,000 mls @ 999 mls/hr 07/28/24 12:53 07/28/24 13:55 Ns IV 07/28/24 13:53 999 mls/hr .Q1H1M ONE Administration Ibuprofen 600 mg 07/28/24 11:35 07/28/24 12:56 Ibuprofen 600 Mg Tablet PO 07/28/24 11:36 600 mg ONCE ONE Administration Medical Decision Making Medical Decision Making [facility] Narrative: 29 yo male with PMH of IDDM sugar not checking sugars was in [place] now reports since yesterday dry cough with chest wall pain and feels body aches, no vaccines against flu. He notes no sick contacts, pos diarrhea and vomiting. He states he feels better with nyquil. At this time not toxic will obtain CXR, swabs, basic labs. Suspect viral syndrome/lung pathology given rapid onset. Likely fluids, insulin as well ordered. He has been vomiting as well and not tolerating much PO. He reports no sick contacts on his trip. He reports fatigue Differential Diagnosis Differential Diagnoses: The differential diagnosis associated with the presentation includes viral syndrome, hyperglycemia, dehydration, lung pathology Admission/Observation Consideration of admission/observation: Escalation of care including admission/observation considered given his glucose, IDDM, flu a and RML pneumonia concerning for [facility] will admit for observation patient aware has been vomiting feels this is best Consult Healthcare Provider Management of the patient was discussed with: Hospitalist (will admit) Lab Data MDM Lab Attestation statement: I reviewed the patient's lab results. 07/28/24 11:49 07/28/24 11:49 Labs: Lab Results 07/28/24 07/28/24 07/28/24 Range/Units 11:47 11:49 13:41 WBC 5.4 (4.8-10.8) X10*3/uL RBC 5.45 (4.60-5.80) X10*6/uL Hgb 16.6 (14.0-18.0) g/dl Hct 45.5 (42.0-52.0) % MCV 83.5 (80.0-98.0) fL MCH 30.5 (27.0-33.0) pg MCHC 36.5 H (31.0-36.0) g/dl RDW 12.1 (11.0-16.0) % Plt Count 151 L (160-400) X10*3/uL MPV 11.6 (9.4-12.4) fL Immature Gran % (Auto) 0.2 (0.0-0.4) % Neut % (Auto) 70.7 (45-73) % Lymph % (Auto) 13.3 L (20-40) % [place] % (Auto) 14.8 H (2-11) % Eos % (Auto) 0.4 (0-4) % Baso % (Auto) 0.6 (0-2) % Lymph # (Auto) 0.7 L (1.2-4.9) X10*3/uL [place] # (Auto) 0.8 (0.1-1.2) X10*3/uL Eos # (Auto) 0.0 (0.0-0.4) X10*3/uL Baso # (Auto) 0.0 (0.0-0.2) X10*3/uL Abs Immat Gran (auto) 0.01 (0.00-0.03) X10*3/uL Absolute Neuts (auto) 3.8 (2.0-8.3) x10*3/uL Absolute Nucleated RBC 0.000 (0.0-0.012) X10*3/uL Nucleated RBC % (auto) 0.0 (0.0-0.2) /100WBC Sodium 128 L (135-145) mmol/L Potassium 4.4 (3.3-5.1) mmol/L Chloride 91 L (96-108) mmol/L Carbon Dioxide 27 (22-29) mmol/L Anion Gap 14 (12-20) BUN 10 (9-16) mg/dL Creatinine 1.06 (0.5-1.4) mg/dL Estim Creat Clear Calc 111.8 Estimated GFR > 60 Random Glucose 526 H* (60-115) mg/dL Lactic Acid 1.2 (0.5-2.0) mmol/L Calcium 9.1 D (8.4-10.2) mg/dL Magnesium 1.9 (1.6-2.6) mg/dL Total Bilirubin 0.5 (0.0-1.0) mg/dL Direct Bilirubin 0.1 (0.0-0.5) mg/dL AST 22 (5-37) U/L ALT 27 (0-40) U/L Alkaline Phosphatase 128 H (39-117) U/L Total Protein 7.2 (6.5-8.0) g/dL Albumin 4.3 (3.5-5.0) g/dL Beta-Hydroxybutyrate 1.76 H (0.02-0.27) mmol/L Influenza Type A (PCR) POSITIVE A (Negative) Influenza Type B (PCR) NEGATIVE (Negative) RSV RNA Qual (PCR) NEGATIVE (Negative) SARS-CoV-2 RNA (RT-PCR) NEGATIVE (Negative) S. pyogenes GrpA LOKI Negative (Negative) Independent Interpretation I performed an independent interpretation of an: Plain X-Ray (RML pneumonia) Radiology Impression Discussion of test interpretation with radiology: I have reviewed the radiologist's reading. External Record Review External record reviewed: Outpatient record Critical Care Time Critical Care Time Critical Care Time: Yes Total Critical Care Time: 35 Attestation: sepsis alert, IVF, admissison, review of records, correction of hyperglycemia I attest to this time spent taking care of the patient Discharge Plan Discharge Clinical Impression: Influenza A, Pneumonia, Acute hyperglycemia Patient Disposition: Admitted As Inpatient Prescriptions: No Action albuterol sulfate [ProAir HFA] 90 mcg/actuation HFA aerosol inhaler 2 puff inhalation Q4-6H PRN (Reason: shortness of breath or wheezing) Qty: 8.5 0RF (DME) FreeStyle Ning 2 [place] Misc See Rx Instructions .ROUTE DIRECTED Qty: 1 Rx Instructions: As directed (DME) FreeStyle Lite Strips Strip See Rx Instructions .ROUTE QID Qty: 10 Rx Instructions: As directed (DME) pen needle, diabetic [BD Ultra-Fine Maria D Pen Needle] 32 gauge x 5/32 needle See Rx Instructions .ROUTE .MEDSUPPLY Qty: 50 Rx Instructions: As directed 7 times day (DME) lancets [TRUEplus Lancets] 33 gauge misc See Rx Instructions .ROUTE QID Qty: 100 Rx Instructions: As directed alcohol swabs [Alcohol Prep Pads] Pads, Medicated 0 pad topical olmesartan 5 mg tablet 5 mg PO QAM (DME) blood-glucose meter [FreeStyle [place] Lite] Kit See Rx Instructions .ROUTE QID Qty: 1 Rx Instructions: As directed insulin degludec [Tresiba FlexTouch U-200] 200 unit/mL (3 mL) insulin pen 34 unit subcut BEDTIME 30 Days Qty: 5.1 3RF (DME) Ketone Urine Test Strip See Rx Instructions .Route Qty: 50 1RF Rx Instructions: As directed prn tid (DME) FreeStyle Ning 2 Sensor Kit See Rx Instructions .Route Qty: 2 6RF Rx Instructions: As directed every 14 days Print Language: Bulgarian
[2024-07-28 11:53] LABS: MANUAL DIFF FLAG NO
[2024-07-28 11:57] LABS: Basophils Percent Auto 0.6 % (0-2); Eosinophils Percent Auto 0.4 % (0-4); Hematocrit 45.5 % (42.0-52.0); Hemoglobin 16.6 g/dl (14.0-18.0); Imm Gran Abs Auto 0.01 X10*3/uL (0.00-0.03); Imm Gran Pct Auto 0.2 % (0.0-0.4); Lymphocytes Absolute Auto 0.7 X10*3/uL (1.2-4.9); Lymphocytes Percent Auto 13.3 % (20-40); Mean Corpuscular HGB Conc 36.5 g/dl (31.0-36.0); Mean Corpuscular Hemoglobin 30.5 pg (27.0-33.0); Mean Corpuscular Volume 83.5 fL (80.0-98.0); Mean Platelet Volume 11.6 fL (9.4-12.4); Monocytes Absolute Auto 0.8 X10*3/uL (0.1-1.2); Monocytes Percent Auto 14.8 % (2-11); Neutrophils Absolute Auto 3.8 x10*3/uL (2.0-8.3); Neutrophils Percent Auto 70.7 % (45-73); Platelet Count 151 X10*3/uL (160-400); Red Blood Count 5.45 X10*6/uL (4.60-5.80); Red Cell Distribution Width 12.1 % (11.0-16.0); White Blood Count 5.4 X10*3/uL (4.8-10.8)
[2024-07-28 12:04] LABS: IDNOW Serial# 08D9AD1C; Strep A Nucleic Acid Negative (Negative)
[2024-07-28 12:14] LABS: Alanine Aminotransferase 27 U/L (0-40); Albumin Level 4.3 g/dL (3.5-5.0); Alkaline Phosphatase 128 U/L (39-117); Anion Gap 14 (12-20); Aspartate Amino Transferase 22 U/L (5-37); Bilirubin Direct 0.1 mg/dL (0.0-0.5); Bilirubin Total 0.5 mg/dL (0.0-1.0); Blood Urea Nitrogen 10 mg/dL (9-16); Calcium 9.1 mg/dL (8.4-10.2); Carbon Dioxide 27 mmol/L (22-29); Chloride 91 mmol/L (96-108); Creatinine Clr Calc Pharmacy 111.8; Estimated Glomerular Filt Rate > 60; Magnesium 1.9 mg/dL (1.6-2.6); Potassium 4.4 mmol/L (3.3-5.1); Sodium 128 mmol/L (135-145); Total Protein 7.2 g/dL (6.5-8.0)
[2024-07-28 12:16] LABS: Glucose Random 526 mg/dL (60-115)
[2024-07-28 12:30] LABS: Beta-Hydroxybutyrate 1.76 mmol/L (0.02-0.27)
[2024-07-28 12:33] LABS: Influenza A PCR POSITIVE (Negative); Influenza B PCR NEGATIVE (Negative); Resp Syncy Virus RNA Qual PCR NEGATIVE (Negative); SARS COV2 PCR INHOUSE NEGATIVE (Negative)
[2024-07-28] MEDS: Ibuprofen 600 MG TABLET PO (12:56)
[2024-07-28] MEDS: cefTRIAXone sodium 1 GM VIAL IVPUSH ×2 (13:55→17:04)
[2024-07-28] MEDS: 0.9 % Sodium Chloride 1,000 ML 999 ML IV (13:55)
[2024-07-28 14:03] LABS: Lactic Acid 1.2 mmol/L (0.5-2.0)
[2024-07-28] MEDS: Insulin Regular, Human 100 UNIT/ML 10 ML VIAL IVPUSH (14:39)
[2024-07-28] MEDS: Azithromycin 500 MG in 0.9 % Sodium Chloride 250 ML 125 MG IV (14:46)
[2024-07-28] MEDS: Oseltamivir Phosphate 75 MG CAPSULE PO (14:47)
[2024-07-28 15:02] LABS: Venous Blood Gas Refer to POC result
--- NOTE | 2024-07-28 15:02 | P.HPHOSP_ITS ---
History of Present Illness Date of Service: 07/28/24 Chief Complaint: Nausea/vomiting/diarrhea/cough 29-year-old gentleman with past medical history significant for insulin- dependent diabetes mellitus has not check blood sugars in last 3 days and noncompliant with insulin ,presented to [facility] due to cough productive of yellow phlegm associated with chest wall pain of 3 days' denies chest pain without coughing, duration,since yesterday patient developed nausea, vomiting and diarrhea noticed to have fever of 103 last night associated with generalized body ache mostly leg and back pain, denies sick contact, in emergency room noted to have blood sugar 526, sodium 128, chloride 91, normal WBC, chest x-ray showed right middle lobe pneumonia, influenza A positive patient treated in the emergency room with IV fluids, IV vancomycin, IV ceftriaxone and azithromycin and now being admitted to [facility] for continued monitoring and treatment. Review of Systems 2 Review of Systems: General fever chills, no headache. CVS no palpitation. Respiratory cough productive of yellow phlegm Gastrointestinal nausea, vomiting and diarrhea no urgency, no frequency Skin no rash All other system reviewed and are negative [facility] Medical History Uncontrolled type 1 diabetes mellitus with hyperglycemia Family History Father Type 1 diabetes Surgical History Hx of vasectomy Social History Household Members: Significant Other Alcohol intake: current Alcohol intake frequency: a few times a week Patient Tobacco Use Status: Never used Tobacco Advance Directives: No Advance Directives Information Provided: Yes Do you have a plan to hurt others: No Plan Meds Allergies Allergy/AdvReac Type Severity Reaction Status Date / Time No Known Allergies Allergy Verified 07/28/24 11:37 Active Medications: Current Medications Acetaminophen (Acetaminophen 325 Mg Tablet) 650 mg PO Q6H PRN PRN Reason: Pain, Mild 1-3,fever,headache Calcium Carbonate (Calcium Carbonate 750 Mg Tab.Chew) 750 mg PO Q4H PRN PRN Reason: Heartburn Ceftriaxone Sodium (Ceftriaxone Sodium 1 Gm Vial) 1 gm IVPUSH Q24H DANITA Glucose (Glucose Gel 15 Gm Gel..Gram.) 15 gm PO Q15M PRN; Protocol PRN Reason: per Hypoglycemia Standing Ord. Azithromycin 500 mg/ Sodium (Chloride) 250 mls @ 125 mls/hr IV ONCE ONE Stop: 07/28/24 16:03 Last Admin: 07/28/24 14:46 Dose: 125 mls/hr Vancomycin HCl (Vancomycin/Ns) 2,000 mg in 500 mls @ 250 mls/hr IV ONCE ONE Stop: 07/28/24 16:10 Dextrose (D10) 250 mls @ 750 mls/hr IV Q15M PRN; Protocol PRN Reason: per Hypoglycemia Standing Ord. Azithromycin 500 mg/ Sodium (Chloride) 250 mls @ 125 mls/hr IV Q24H [facility] Sodium Chloride (Ns) 1,000 mls @ 125 mls/hr IVCONT .Q8H [facility] Stop: 07/29/24 06:59 Insulin Human Lispro (Insulin Lispro 100 Unit/Ml 3 Ml Vial) 0 unit SUBCUT QIDACHS [facility]; Protocol Magnesium Hydroxide (Milk Of Magnesia 30 Ml Oral.Susp) 30 ml PO DAILY PRN PRN Reason: Constipation Melatonin (Melatonin 3 Mg Tablet) 6 mg PO BEDTIME PRN PRN Reason: Insomnia Ondansetron HCl (Ondansetron Hcl 4 Mg/2 Ml Vial) 4 mg IVPUSH Q8H PRN PRN Reason: Nausea and Vomiting Sodium Chloride (0.9 % Sodium Chloride Flush 3 Ml Syringe) 3 ml IVFLUSH QSHIFT [facility] Home Medications ?Medication ?Instructions ?Recorded ?Confirmed ?Last Taken ?Type blood sugar diagnostic (FreeStyle #10 ea 07/04/22 Unknown History Lite Strips) flash glucose scanning reader #1 ea 07/04/22 Unknown History (FreeStyle Ning 2 [place]) lancets 33 gauge (TRUEplus Lancets) #100 ea 07/04/22 Unknown History pen needle, diabetic 32 gauge x #50 ea 07/04/22 Unknown History (BD Ultra-Fine Maria D Pen Needle) alcohol swabs (Alcohol Prep Pads) 0 pad topical 10/03/22 Unknown History blood-glucose meter (FreeStyle #1 ea 10/03/22 Unknown History [place] Lite kit) olmesartan 5 mg tablet 5 mg PO QAM 10/03/22 Unknown History Physical Exam 2 Vital Signs and Narrative: Vital Signs: Last Vital Signs Temp 100.2 F 07/28/24 11:32 Pulse 104 H 07/28/24 11:32 Resp 16 07/28/24 11:32 BP 149/92 H 07/28/24 11:32 Pulse Ox 98 07/28/24 11:32 O2 Del Method Room Air 07/28/24 11:32 BMI result Body Mass Index 23.7 Const: Other: General resting comfortably in no acute distress. Moist mucous membranes Anicteric sclera Neck no JVD. CVS regular rate rhythm, Respiratory lungs clear to auscultation, no respiratory distress, no wheeze, no rhonchi. Gastrointestinal abdomen soft, non tender, bowel sounds audible, no guarding , no rigidity. Extremities no edema. Neuro non focal Skin no rash Psych appropriate affect. Results Labs 07/28/24 11:49 07/28/24 11:49 Labs: Laboratory Results - last 24 hr 07/28/24 07/28/24 07/28/24 11:47 11:49 13:41 MCV 83.5 MCH 30.5 MCHC 36.5 H RDW 12.1 Plt Count 151 L MPV 11.6 Immature Gran % (Auto) 0.2 Neut % (Auto) 70.7 Lymph % (Auto) 13.3 L Mccormick % (Auto) 14.8 H Eos % (Auto) 0.4 Baso % (Auto) 0.6 Lymph # (Auto) 0.7 L Mccormick # (Auto) 0.8 Eos # (Auto) 0.0 Baso # (Auto) 0.0 Abs Immat Gran (auto) 0.01 Absolute Neuts (auto) 3.8 Absolute Nucleated RBC 0.000 Nucleated RBC % (auto) 0.0 Anion Gap 14 Estim Creat Clear Calc 111.8 Estimated GFR > 60 Random Glucose 526 H* Lactic Acid 1.2 Calcium 9.1 D Magnesium 1.9 Total Bilirubin 0.5 Direct Bilirubin 0.1 AST 22 ALT 27 Alkaline Phosphatase 128 H Total Protein 7.2 Albumin 4.3 Beta-Hydroxybutyrate 1.76 H Influenza Type A (PCR) POSITIVE A Influenza Type B (PCR) NEGATIVE RSV RNA Qual (PCR) NEGATIVE SARS-CoV-2 RNA (RT-PCR) NEGATIVE S. pyogenes GrpA LOKI Negative Imaging Radiologist's Impressions: Impressions Chest X-Ray 07/28/24 12:16 IMPRESSION: Acute airspace disease in the right middle lobe in the correct clinical settings. Electronically signed by: Mauro Reina MD 07/28/2024 12:22 PM [facility] Assessment and Plan (1) Acute hyperglycemia: Status: Acute (2) Pneumonia: Qualifiers: Laterality: right Lung location: middle lobe of lung Pneumonia type: d ue to unspecified organism Qualified Code(s): J18.9 - Pneumonia, unspecified organism Status: Acute (3) Influenza A: Status: Acute (4) Uncontrolled type 1 diabetes mellitus with hyperglycemia: Status: Acute Plan 29-year-old insulin-dependent diabetes mellitus, noncompliant with medications with uncontrolled blood sugars presented to [facility] with 3 days of productive cough, since last night developed nausea vomiting diarrhea and fever diagnosed to have influenza a/right middle lobe pneumonia and elevated blood sugars. Influenza a Symptoms started > 72h, therefore will hold Tamiflu GI symptoms related to influenza Continue supportive care with cough medications, analgesics and antiemetics Right middle lobe pneumonia likely secondary bacterial infection Continue IV ceftriaxone and azithromycin started in emergency room 07/28 Cough medications/normal CBC cough, follow blood cultures Insulin-dependent diabetes mellitus with hyperglycemia Likely due to noncompliance IVF,Diabetic diet/insulin sliding scale and basal insulin Acute hyponatremia likely pseudohyponatremia due to hyperglycemia, correct blood sugar and follow labs. Early ambulation Full Code In my clinical judgment patient required 2 night inpatient hospitalization for monitoring and treatment of influenza a infection/right middle lobe pneumonia requiring IV antibiotics and management of uncontrolled blood sugars. Quality Stroke Does the patient have a stroke diagnosis?: No VTE Prior VTE?: No VTE Risk Level:: Medical - low VTE Device Contraindication: Treatment Not Indicated VTE Drug Contraindication: Treatment Not Indicated
[2024-07-28 15:03] LABS: VBG Base Excess -3.8 mmol/L; VBG HCO3 19 mmol/L (22-26); VBG pCO2 30 mmHg; VBG pO2 168 mmHg
--- NOTE | 2024-07-28 15:33 | PC.NURSE ---
Antibiotics ordered on pt @1253 per MD. Pt was not brought into [facility] room until 1330, 1335 sepsis protocol initiated.
[2024-07-28] MEDS: vancomycin/NS 2,000 MG/500 ML PLAST..BAG 250 MG IV (15:58)
--- NOTE | 2024-07-28 16:00 | PHA.MEDREC ---
Pharmacy Consult ? Medication Reconciliation Pharmacy has completed the medication reconciliation. Spoke with patient and he confirmed he is taking the Insulin Lispro (Humalog) 100 unit/mL pen and confirmed he is taking it three times a day before meals and he confirmed he is taking the Tresiba 100 unit/mL (3 mL) pen and confirmed he is injecting 30 units in the morning and at night. He states he has not been compliant with taking them and have not injected any insulin in about 3 days.
[2024-07-28] MEDS: 0.9 % Sodium Chloride 1,000 ML 125 ML IVCONT (17:05)
[2024-07-28 17:44] LABS: Glucose, Whole Blood 291 mg/dL (60-115)
--- NOTE | 2024-07-28 18:00 | PC.NURSE ---
Provider Alfredo notified of patients chest pain no new orders malathi.
[2024-07-28] MEDS: Insulin Lispro 100 UNIT/ML 3 ML VIAL SUBCUT ×2 (18:56→21:22)
--- NOTE | 2024-07-28 19:14 | PC.NURSE ---
PT POC taken before dinner tray arrived, pt received Dinner tray PT medicated per mar sliding scale order before start of meal, tray at bedside.
[2024-07-28] MEDS: 0.9 % Sodium Chloride Flush 3 ML SYRINGE IVFLUSH (21:17)
[2024-07-28 21:21] LABS: Glucose, Whole Blood 296 mg/dL (60-115)
[2024-07-28] MEDS: Insulin Glargine,Hum.rec.anlog 100 UNIT/ML 10 ML VIAL 25 UNIT SUBCUT (21:23)
[2024-07-28 23:04] LABS: Glucose, Whole Blood 266 mg/dL (60-115)
[2024-07-28] MEDS: ondansetron HCL 4 MG/2 ML VIAL IVPUSH (23:50)
[2024-07-29 00:01] LABS: Glucose, Whole Blood 219 mg/dL (60-115)
[2024-07-29] MEDS: guaiFEN/Codeine SF 200/20/10ML 10 ML LIQUID 5 ML PO (00:14)
[2024-07-29] MEDS: 0.9 % Sodium Chloride 1,000 ML 125 ML IVCONT (00:14)
--- NOTE | 2024-07-29 01:26 | PC.NURSE ---
Patient admitted to s4 from ED as med-surg pt just before 21:00 on 07/28. Pt with hyperglycemia in 500's in ED prior to arrival. ACHS POC on arrival obtained showing 296. Pt denies symptoms of hyperglycemia for documentation writer since assuming care, though states he felt weak and heavy in ED when sugars were higher. Pt was given scheduled 25 lantus and ISS per SEP. Pt is A&Ox4. FLU+ found in ED. Placed on droplet precautions and pt was educated. Denies chest pain or sob. Only complains of cough that is productive of thick yellow sputum at times. Breathing is even and unlabored without distress on RA. Covering Dr. Kelly notified of cough and pt request for medication with robitussin with codeine ordered and given with +effect. Pt c/o nausea x1 and feeling weak again. POC obtained to r/o glucose derrangements per pt request showed POC 219. Covering Dr Kelly made aware, no further orders advised at this time. Pt given prn zofran with +effect. Patient continues with NS infusing per SEP. Pt ambulates steadily independently to the BR. Safety measures in place. Plan of care continues.
[2024-07-29 03:26] VITALS: BP 122/77; PULSE 87; RESP 20; TEMP 37.7; O2SAT 96
[2024-07-29 07:36] LABS: Glucose, Whole Blood 250 mg/dL (60-115)
[2024-07-29 07:44] VITALS: BP 138/79; PULSE 78; RESP 18; TEMP 36.6; O2SAT 98
[2024-07-29] MEDS: Acetaminophen 325 MG TABLET 650 MG PO (08:02)
[2024-07-29] MEDS: Insulin Lispro 100 UNIT/ML 3 ML VIAL SUBCUT ×4 (08:03→21:05)
[2024-07-29 10:20] LABS: Anion Gap 8 (12-20); Blood Urea Nitrogen 7 mg/dL (9-16); Calcium 8.6 mg/dL (8.4-10.2); Carbon Dioxide 26 mmol/L (22-29); Chloride 100 mmol/L (96-108); Creatinine Clr Calc Pharmacy 151.9; Estimated Glomerular Filt Rate > 60; Glucose Random 357 mg/dL (60-115); Potassium 3.7 mmol/L (3.3-5.1); Sodium 130 mmol/L (135-145)
[2024-07-29 11:17] LABS: Glucose, Whole Blood 446 mg/dL (60-115)
--- NOTE | 2024-07-29 11:37 | MHC.CM.PN ---
Pt self-care, lives at home with his fiance. Pt will transport himself home at discharge (car is in lot). Education provided on HCP, pt declined at this time. PCP: SAI [facility]
[2024-07-29 12:11] LABS: Glucose, Whole Blood 296 mg/dL (60-115)
--- NOTE | 2024-07-29 12:47 | HO.PM.IMPN ---
Subjective Subjective Date of Service: 07/29/24 Interval History: Complaining of mid back pain, worse with deep breathing, feels weak, no high-grade fevers overnight. No acute events overnight. Review of Systems All other system reviewed and are negative. Physical Exam Vital Signs: Vital Signs: Last Vital Signs Temp 97.9 F 07/29/24 07:44 Pulse 78 07/29/24 07:44 Resp 18 07/29/24 07:44 BP 138/79 07/29/24 07:44 Pulse Ox 98 07/29/24 07:44 O2 Del Method Room Air 07/29/24 07:44 BMI result Body Mass Index 23.7 Const: Other: General resting comfortably in no acute distress. Moist mucous membranes Anicteric sclera Neck no JVD. CVS regular rate rhythm, Respiratory lungs clear to auscultation, no respiratory distress, no wheeze, no rhonchi. Gastrointestinal abdomen soft, non tender, bowel sounds audible, no guarding , no rigidity. Extremities no edema. Neuro non focal Skin no rash Psych appropriate affect. Objective Data Active Medications Acetaminophen (Acetaminophen 325 Mg Tablet) 650 mg PO Q6H PRN PRN Reason: Pain, Mild 1-3,fever,headache Last Admin: 07/29/24 08:02 Dose: 650 mg Documented By: TRE Calcium Carbonate (Calcium Carbonate 750 Mg Tab.Chew) 750 mg PO Q4H PRN PRN Reason: Heartburn Ceftriaxone Sodium (Ceftriaxone Sodium 1 Gm Vial) 1 gm IVPUSH Q24H DANITA Last Admin: 07/28/24 17:04 Dose: 1 gm Documented By: SHIREEN Glucose (Glucose Gel 15 Gm Gel..Gram.) 15 gm PO Q15M PRN; Protocol PRN Reason: per Hypoglycemia Standing Ord. Guaifenesin/Codeine Phosphate (Guaifen/Codeine Sf 200/20/10ml 10 Ml Liquid) 5 ml PO Q6H PRN PRN Reason: Cough Last Admin: 07/29/24 00:14 Dose: 5 ml Documented By: DERRICK Dextrose (D10) 250 mls @ 750 mls/hr IV Q15M PRN; Protocol PRN Reason: per Hypoglycemia Standing Ord. Azithromycin 500 mg/ Sodium (Chloride) 250 mls @ 125 mls/hr IV Q24H [facility] Insulin Glargine (Insulin Glargine,Hum.Rec.Anlog 100 Unit/Ml 10 Ml Vial) 25 unit SUBCUT BEDTIME [facility] Last Admin: 07/28/24 21:23 Dose: 25 unit Documented By: DERRICK Insulin Glargine (Insulin Glargine,Hum.Rec.Anlog 100 Unit/Ml 10 Ml Vial) 20 unit SUBCUT DAILY [facility] Insulin Human Lispro (Insulin Lispro 100 Unit/Ml 3 Ml Vial) 0 unit SUBCUT QIDACHS [facility]; Protocol Last Admin: 07/29/24 12:11 Dose: 10 unit Documented By: TRE Magnesium Hydroxide (Milk Of Magnesia 30 Ml Oral.Susp) 30 ml PO DAILY PRN PRN Reason: Constipation Melatonin (Melatonin 3 Mg Tablet) 6 mg PO BEDTIME PRN PRN Reason: Insomnia Ondansetron HCl (Ondansetron Hcl 4 Mg/2 Ml Vial) 4 mg IVPUSH Q8H PRN PRN Reason: Nausea and Vomiting Last Admin: 07/28/24 23:50 Dose: 4 mg Documented By: DERRICK Sodium Chloride (0.9 % Sodium Chloride Flush 3 Ml Syringe) [facility] Last Admin: 07/28/24 21:17 Dose: 3 ml Documented By: DERRICK Labs 07/28/24 11:49 07/29/24 09:12 Labs: Laboratory Results - last 24 hr 07/28/24 07/28/24 07/28/24 13:41 14:36 14:58 VBG pH 7.40 VBG pCO2 30 VBG pO2 168 VBG HCO3 19 L VBG O2 Saturation 100.0 VBG Base Excess -3.8 Anion Gap Estim Creat Clear Calc Estimated GFR POC Glucose 446 H* Random Glucose Lactic Acid 1.2 Calcium 07/28/24 07/28/24 07/28/24 17:37 18:48 21:16 VBG pH VBG pCO2 VBG pO2 VBG HCO3 VBG O2 Saturation VBG Base Excess Anion Gap Estim Creat Clear Calc Estimated GFR POC Glucose 291 H 266 H 296 H Random Glucose Lactic Acid Calcium 07/28/24 07/29/24 07/29/24 23:46 07:18 09:12 VBG pH VBG pCO2 VBG pO2 VBG HCO3 VBG O2 Saturation VBG Base Excess Anion Gap 8 L Estim Creat Clear Calc 151.9 Estimated GFR > 60 POC Glucose 219 H 250 H Random Glucose 357 H* Lactic Acid Calcium 8.6 07/29/24 11:39 VBG pH VBG pCO2 VBG pO2 VBG HCO3 VBG O2 Saturation VBG Base Excess Anion Gap Estim Creat Clear Calc Estimated GFR POC Glucose 296 H Random Glucose Lactic Acid Calcium Assessment and Plan (1) Acute hyperglycemia: Status: Acute (2) Pneumonia: Status: Acute (3) Influenza A: Status: Acute (4) Uncontrolled type 1 diabetes mellitus with hyperglycemia: Status: Acute Plan 29-year-old insulin-dependent diabetes mellitus, noncompliant with medications with uncontrolled blood sugars presented to [facility] with 3 days of productive cough, since last night developed nausea vomiting diarrhea and fever diagnosed to have influenza a/right middle lobe pneumonia and elevated blood sugars. Influenza A Symptoms started > 72h prior to presentation GI symptoms related to influenza resolved Continue supportive care with cough medications, analgesics and antiemetics Right middle lobe pneumonia likely secondary bacterial infection Continue IV ceftriaxone and azithromycin started in emergency room 07/28 Cough medications/normal CBC cough, follow blood cultures pending Musculoskeletal mid back pain continue analgesics Insulin-dependent diabetes mellitus with hyperglycemia Likely due to noncompliance, persistent elevated blood sugars Diabetic diet/insulin sliding scale and increase dose of Lantus to twice daily, adjusted insulin sliding scale Acute hyponatremia likely pseudohyponatremia due to hyperglycemia, correct blood sugar and follow labs, sodium improved to 130. Early ambulation Full Code In my clinical judgment patient requires continued inpatient hospitalization for monitoring and treatment of influenza a infection/right middle lobe pneumonia requiring IV antibiotics and management of uncontrolled blood sugars. Quality Stroke Does the patient have a stroke diagnosis?: No VTE Prior VTE?: No VTE Risk Level:: Medical - low VTE Device Contraindication: Treatment Not Indicated VTE Drug Contraindication: Treatment Not Indicated
[2024-07-29 14:05] VITALS: BP 138/79; PULSE 78; RESP 18; TEMP 36.6
[2024-07-29] MEDS: guaiFENesin DM 200/20/10 ML 10 ML SYRUP PO ×2 (15:40→19:59)
[2024-07-29] MEDS: cefTRIAXone sodium 1 GM VIAL IVPUSH (15:40)
[2024-07-29 15:44] VITALS: BP 146/98; PULSE 63; RESP 18; TEMP 36.2; O2SAT 94
[2024-07-29 16:21] LABS: Glucose, Whole Blood 282 mg/dL (60-115)
[2024-07-29] MEDS: Azithromycin 500 MG in 0.9 % Sodium Chloride 250 ML 125 MG IV (16:29)
[2024-07-29] MEDS: 0.9 % Sodium Chloride Flush 3 ML SYRINGE IVFLUSH (16:36)
[2024-07-29 19:30] VITALS: BP 132/92; PULSE 82; RESP 18; TEMP 36.6; O2SAT 99
[2024-07-29] MEDS: Insulin Glargine,Hum.rec.anlog 100 UNIT/ML 10 ML VIAL 25 UNIT SUBCUT (19:59)
[2024-07-29 20:10] LABS: Glucose, Whole Blood 295 mg/dL (60-115)
[2024-07-30 03:37] VITALS: BP 122/75; PULSE 88; RESP 20; TEMP 36.3; O2SAT 97
[2024-07-30] MEDS: guaiFEN/Codeine SF 200/20/10ML 10 ML LIQUID 5 ML PO (04:29)
[2024-07-30 07:25] LABS: Glucose, Whole Blood 196 mg/dL (60-115)
[2024-07-30 07:30] VITALS: BP 123/48; PULSE 76; RESP 20; TEMP 36.2; O2SAT 99
[2024-07-30] MEDS: Insulin Glargine,Hum.rec.anlog 100 UNIT/ML 10 ML VIAL 20 UNIT SUBCUT (08:34)
[2024-07-30] MEDS: guaiFENesin DM 200/20/10 ML 10 ML SYRUP PO (08:35)
[2024-07-30] MEDS: Insulin Lispro 100 UNIT/ML 3 ML VIAL SUBCUT ×2 (08:38→11:48)
[2024-07-30] MEDS: 0.9 % Sodium Chloride Flush 3 ML SYRINGE IVFLUSH (08:39)
[2024-07-30] MEDS: Acetaminophen 325 MG TABLET 650 MG PO (08:40)
--- NOTE | 2024-07-30 10:41 | P.DS_ITS ---
DS: Providers Provider Date of Service: 07/30/24 Date of admission: 07/28/24 14:50 Date of discharge: 07/30/24 Primary care physician: SAI Lott DS: Diagnosis Discharge Diagnosis (1) Acute hyperglycemia: Status: Acute (2) Pneumonia: Status: Acute (3) Influenza A: Status: Acute (4) Uncontrolled type 1 diabetes mellitus with hyperglycemia: Status: Acute DS: Summary Hospital Course Hospital Course: History of presenting illness: Date of Service: 07/28/24 Chief Complaint: Nausea/vomiting/diarrhea/cough 29-year-old gentleman with past medical history significant for insulin- dependent diabetes mellitus has not check blood sugars in last 3 days and noncompliant with insulin ,presented to [facility] due to cough productive of yellow phlegm associated with chest wall pain of 3 days' denies chest pain without coughing, duration,since yesterday patient developed nausea, vomiting and diarrhea noticed to have fever of 103 last night associated with generalized body ache mostly leg and back pain, denies sick contact, in emergency room noted to have blood sugar 526, sodium 128, chloride 91, normal WBC, chest x-ray showed right middle lobe pneumonia, influenza A positive patient treated in the emergency room with IV fluids, IV vancomycin, IV ceftriaxone and azithromycin and now being admitted to [facility] for continued monitoring and treatment. Hospital course: 29-year-old insulin-dependent diabetes mellitus, noncompliant with medications with uncontrolled blood sugars presented to [facility] with 3 days of productive cough, nausea ,vomiting ,diarrhea and fever of 1 day duration diagnosed to have influenza A/right middle lobe pneumonia and elevated blood sugars and admitted for following medical issues.. Influenza A treated symptomatically with analgesics cough medications and antiemetics did not qualify for Tamiflu since symptoms started greater than 72 hours prior to presentation all GI symptoms resolved patient is tolerating diet feeling better therefore being discharged home and recommended rest and plenty of fluids. Right middle lobe pneumonia likely secondary bacterial infection treated with IV ceftriaxone and azithromycin, blood culture showed no growth no recurrent fevers recommend to finish 5 day course of antibiotics take cough medications for few more days. Insulin-dependent diabetes mellitus with hyperglycemia Likely due to noncompliance, recommend to continue diabetic diet, home dose of basal and bolus insulin. Acute hyponatremia likely pseudohyponatremia due to hyperglycemia, sodium improved to 130. Time Attestation Discharge Coordination Time (in mins): 36 Quality: Safe Use of Opioids Does Pt have an Active Cancer Diagnosis on the Problem List?: No Quality: Stroke Does the patient have a stroke diagnosis?: No Physical Exam Vital Signs: Vital Signs: Last Vital Signs Temp 97.1 F 07/30/24 07:30 Pulse 76 07/30/24 07:30 Resp 20 07/30/24 07:30 BP 123/48 L 07/30/24 07:30 Pulse Ox 99 07/30/24 07:30 O2 Del Method Room Air 07/30/24 07:30 BMI result Body Mass Index 23.7 Const: Other: General no acute distress. Moist mucous membranes Anicteric sclera Neck no JVD. CVS regular rate rhythm, Respiratory lungs clear to auscultation, no respiratory distress, no wheeze, no rhonchi. Gastrointestinal abdomen soft, non tender, bowel sounds audible, no guarding , no rigidity. Extremities no edema. Neuro non focal Skin no rash Psych appropriate affect. DS: Data Data Completed and Pending Labs on day of discharge: Laboratory Results - last 24 hr 07/28/24 07/29/24 07/29/24 14:36 11:39 16:13 POC Glucose 446 H* 296 H 282 H 07/29/24 07/30/24 19:41 07:21 POC Glucose 295 H 196 H Preliminary micro results at discharge 07/28/24 13:52 Blood Culture - Preliminary Blood - Venous No growth after 24 hours. 07/28/24 13:41 Blood Culture - Preliminary Blood - Venous No growth after 24 hours. Discharge Plan Discharge Anticipated Discharge Date/Time: 07/30/24 10:30 Patient Disposition: Home, Self-Care Discharge Diagnosis: Influenza a Pneumonia Insulin-dependent diabetes mellitus with hyperglycemia Referrals: CosmeEmily carrizales, CERTIFIED COURT/MEDICAL INTERPRETER [Primary Care Provider] - 1 Week Discharge Medications: New dextromethorphan-guaifenesin 10-100 mg/5 mL Syrup 10 ml PO TID Qty: 237 0RF Rx Instructions: Use for 5 days cefuroxime axetil 500 mg tablet 500 mg PO Q12H Qty: 6 0RF azithromycin 500 mg tablet 500 mg PO DAILY 3 Days Qty: 3 0RF Rx Instructions: start on day 2 of therapy Continued insulin lispro 100 unit/mL insulin pen See Protocol subcut TIDAC Protocol: Insulin Correction Scale Less than or equal to 110 ---- Give (units): 0 111 to 150 Give (units): 0 151 to 200 Give (units): 2 201 to 250 Give (units): 4 251 to 300 Give (units): 6 301 to 350 Give (units): 8 Greater than 350 Give (units): 10 Call MD if Blood Glucose > : 350 insulin degludec [Tresiba FlexTouch U-100] 100 unit/mL (3 mL) insulin pen 30 unit subcut BID (DME) FreeStyle Ning 2 [place] Misc See Rx Instructions .ROUTE DIRECTED Qty: 1 Rx Instructions: As directed (DME) FreeStyle Lite Strips Strip See Rx Instructions .ROUTE QID Qty: 10 Rx Instructions: As directed (DME) pen needle, diabetic [BD Ultra-Fine Maria D Pen Needle] 32 gauge x 5/32 needle See Rx Instructions .ROUTE .MEDSUPPLY Qty: 50 Rx Instructions: As directed 7 times day (DME) lancets [TRUEplus Lancets] 33 gauge misc See Rx Instructions .ROUTE QID Qty: 100 Rx Instructions: As directed (DME) blood-glucose meter [FreeStyle [place] Lite] Kit See Rx Instructions .ROUTE QID Qty: 1 Rx Instructions: As directed (DME) Ketone Urine Test Strip See Rx Instructions .Route Qty: 50 1RF Rx Instructions: As directed prn tid (DME) FreeStyle Ning 2 Sensor Kit See Rx Instructions .Route Qty: 2 6RF Rx Instructions: As directed every 14 days Discharge Orders: Discharge Order (Routine); Ordered 07/30/24 Ordered By: Yoselyn Fuentes Diet: Diabetic diet Activity on Discharge: As tolerated Stand Alone Forms: Patient Portal Discharge page Print Language: Lao Care Plan Goals: Influenza a/pneumonia recommend rest plenty of fluids and finished course of antibiotic as prescribed Follow diabetic diet and home dose of insulin Health Concerns: Diabetes Plan of Treatment: Outpatient follow-up with primary care physician call for appointment in 1 week Assessment: As above
--- NOTE | 2024-07-30 10:51 | MHC.CM.PN ---
Pt is medically cleared for discharge home self-care, pt will tranport himself home (car is in lot).
[2024-07-30 11:07] LABS: Glucose, Whole Blood 345 mg/dL (60-115)
[2024-07-30 11:09] VITALS: BP 123/83; PULSE 79; RESP 20; TEMP 35.9; O2SAT 98
== END 2024-07-30 12:30 | disposition home or self-care (01) | DRG 195 ==
LOC: HO.ED 14:17 → HO.EDOVER 14:55 → HO.IMC 19:44
PROVIDERS: Registered Nurse Emergency; Admitting Provider Hospitalist; Emergency Provider Emergency Medicine; PCP Registered Nurse; Visit Provider Hospitalist
DX: J10.08 Influenza due to other identified influenza virus with other specified pneumonia (principal); J15.9 Unspecified bacterial pneumonia; E10.65 Type 1 diabetes mellitus with hyperglycemia; Z91.148 Patient's other noncompliance with medication regimen for other reason; Z79.4 Long term (current) use of insulin
CPT/HCPCS: 0241U; 36415; 71046; 80048; 80076; 82010; 82803; 82947; 83605; 83735; 85025; 87040; 87651; 99285; J0456; J0696; J2405; J3370

== ENCOUNTER → 2024-07-28 11:35 | Outpatient (BNV) | payer OTHER, SELFPAY | PROVIDERS: Emergency Provider Emergency Medicine; PCP Registered Nurse; Visit Provider Radiology Diagnostic Radiology | DX: R50.9 Fever, unspecified (principal); R05.9 Cough, unspecified | CPT/HCPCS: 71046 ==

== ENCOUNTER → 2024-07-28 14:50 | Outpatient (BNV) | payer SELFPAY | PROVIDERS: Admitting Provider Hospitalist; Emergency Provider Emergency Medicine; PCP Registered Nurse; Visit Provider Hospitalist | DX: E10.65 Type 1 diabetes mellitus with hyperglycemia (principal); J18.9 Pneumonia, unspecified organism; J10.1 Influenza due to other identified influenza virus with other respiratory manifestations | CPT/HCPCS: 99223; 99233; 99239 ==

== ENCOUNTER 2024-11-19 14:34 | Emergency (ER) | payer OTHER, SELFPAY ==
[2024-11-19 14:49] VITALS: BP 148/99; PULSE 85; RESP 18; TEMP 36.8; O2SAT 99; BMI 22.9
--- NOTE | 2024-11-19 14:49 | ED_ITS ---
HPI - General Adult General Chief complaint: General Medical Stated complaint: High Blood Sugar Time Seen by Provider: 11/19/24 15:56 Source: patient Mode of arrival: ambulatory Limitations: no limitations History of Present Illness ED Provider: Savannah Fitzgerald PA-C HPI narrative: Patient is a 29 year old assigned male at with a history of type 1 DM presenting to the emergency department today with fatigue and increased blood sugars. 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 Patient states that he did take 20 units today. Patient states that he has felt more tired and wanted to be examined to make sure he is not in DKA. Patient denies any dizziness, lightheadedness, abdominal pain, nausea, vomiting, fever, chills, blurry vision, double vision, loss of vision, chest pain, difficulty breathing, shortness of breath, back pain, night sweats, pain with urination, increased urinary frequency, increased urinary urgency, blood in his urine or stool, syncope or a near syncopal episode, recent trauma or falls, bowel incontinence, bladder incontinence, or any other complaints at this time. Related Data Home Medications ?Medication ?Instructions ?Recorded ?Confirmed blood sugar diagnostic (FreeStyle #10 ea 07/04/22 Lite Strips) flash glucose scanning reader #1 ea 07/04/22 (FreeStyle Ning 2 Cadet) lancets 33 gauge (TRUEplus Lancets) #100 ea 07/04/22 pen needle, diabetic 32 gauge x #50 ea 07/04/22 5/32 (BD Ultra-Fine Maria D Pen Needle) blood-glucose meter (FreeStyle #1 ea 10/03/22 [place] Lite kit) insulin degludec 100 unit/mL (3 30 unit subcut BID 07/28/24 07/28/24 mL) subcutaneous pen (Tresiba FlexTouch U-100 insulin) insulin lispro 100 unit/mL See Protocol subcut TIDAC 07/28/24 07/28/24 subcutaneous pen Previous Rx's ?Medication ?Instructions ?Recorded acetone (urine) test (Ketone Urine #50 ea 02/12/24 Test strips) flash glucose sensor (FreeStyle #2 ea 02/12/24 Ning 2 Sensor kit) azithromycin 500 mg tablet 500 mg PO DAILY 3 days #3 tabs 07/30/24 cefuroxime axetil 500 mg tablet 500 mg PO Q12H #6 tabs 07/30/24 dextromethorphan-guaifenesin 10 10 ml PO TID #237 mL 07/30/24 mg-100 mg/5 mL oral syrup Allergies Allergy/AdvReac Type Severity Reaction Status Date / Time No Known Allergies Allergy Verified 11/19/24 14:51 Review of Systems 2 Constitutional: Constitutional: Reports no additional constitutional complaints, Denies chills, Reports fatigue, Denies fever(s) and Denies night sweats Eyes: Eyes: Reports no additional eye complaints, Denies blurry vision, Denies change in vision, Denies diplopia, Denies eye discharge, Denies loss of vision and Denies eye pain ENT: Denies dizziness Cardiovascular: Cardiovascular: Reports no additional cardiovascular complaints, Denies chest pain, Denies lightheadedness, Denies Loss of Consciousness and Denies dyspnea Respiratory: Respiratory: Reports no additional respiratory complaints and Denies dyspnea Gastrointestinal: Gastrointestinal: Reports no additional gastrointestinal complaints, Denies abdominal pain, Denies melena, Denies hematochezia, Denies change in bowel habits and Denies change in stool character Genitourinary: Genitourinary: Reports no additional male genitourinary complaints, Denies hematuria, Denies oliguria, Denies difficulty urinating, Denies dysuria, Denies urinary frequency, Denies urinary hesitancy, Denies urinary incontinence and Denies urinary urgency Musculoskeletal: Musculoskeletal: Reports no additional musculoskeletal complaints, Denies numbness and Denies tingling Neurologic: Denies dizziness, Denies loss of vision, Denies numbness and Denies tingling Psychiatric: Psychiatric: Reports no additional psychiatric complaints Endocrine: Endocrine: Reports no additional endocrine complaints and Reports fatigue Hematologic/Lymphatic: Hematologic/Lymphatic: Reports no additional hematologic/lymphatic complaints Allergic/Immunologic: Allergic/Immunologic: Reports no additional allergic/immunologic complaints PMFSH Past Medical History Attestation statement: The following information was validated with the patient. Source: old records reviewed and nursing notes reviewed Medical History Uncontrolled type 1 diabetes mellitus with hyperglycemia Surgical History Hx of vasectomy Family History Family History Father Type 1 diabetes Social History Social History Household Members: Spouse and Children Household Members Other:: fiance, stepdaughter Housing: Apartment Do you presently have visiting nurse or other home services: No Unable to assess alcohol history related to: Unknown Alcohol intake: current Alcohol intake frequency: a few times a week Patient Tobacco Use Status: Never used Tobacco Smoked in Last 30 Days: No e-Cigarette/Vaping Use: Never Used Use of substances other than those prescribed or required for medical reasons: No Substance Use Type: Marijuana Advance Directives: No Advance Directives Information Provided: Yes service: No Physical Exam ED Vital Signs: Vital Signs - 24 hr 11/19/24 14:49 11/19/24 19:10 Temperature 98.2 F 98.7 F Pulse Rate 85 74 Respiratory Rate 18 16 Blood Pressure 148/99 H 138/87 Pulse Oximetry 99 99 Oxygen Delivery Method Room Air Room Air BMI result Body Mass Index 22.9 Const General: cooperative, no acute distress, alert and awake Nutritional Appearance: well nourished Orientation/consciousness: patient oriented x3 HENMT Head: Yes normal to inspection and Yes atraumatic Ears: hearing grossly normal bilaterally and external ears normal General nose exam: Normal external nose present, no nasal discharge noted and no epistaxis Face and sinus: Yes normal facial exam, No abrasion and No laceration Mouth: Normal oral and palatal mucosa present, no drooling and no muffled voice Eyes General: appearance normal, both eyes and all related structures Periorbital: periorbital findings normal Eyelids: Yes eyelids normal Conjunctivae: conjunctivae normal Pupils: Equal, round and reactive pupils present EOM: EOMs intact bilaterally Neck Neck: Yes normal visual inspection, Yes full ROM and Yes no lymphadenopathy Resp Effort & Inspection: normal respiratory effort and able to speak in complete sentences Neuro General: patient oriented x3, moves all extremities and CN's II-XI intact bilaterally Cranial nerves: Yes Equal, round and reactive pupils present Cognition (Neuro): normal cognition Extrem General: Yes normal to inspection, Yes full ROM and Yes capillary refill normal Psych Appearance: grossly normal Mental Status: mental status grossly normal Affect: normal affect Attitude: cooperative Thought process: Normal thought process present Thought content: Normal thought content present Insight: Good insight present (Psych) Course Course Course Narrative: This is a Rapid Medical Exam performed in triage by Daniela Ortega PA-C. Full HPI, ROS and PE to be performed by primary ED provider. 29 yo M w/PMHx DM presenting to the ED sent in from [facility] c/o elevated glucose x few days, has been out of his insulin since Sunday (too busy working). Took 20U Humalog around 1300. +polyuria/polydipsia & lethargy PE: NAD, nontoxic appearing, ambulating w/steady gait Plan: labs, UA Medications Administered Discontinued Medications Generic Name Dose Route Start Last Admin Trade Name Nathaniel PRN Reason Stop Dose Admin Lactated Ringer's 1,000 mls @ 999 mls/hr 11/19/24 16:00 11/19/24 16:08 Lr IV 11/19/24 18:00 999 mls/hr .Q1H1M DANITA Administration Magnesium Sulfate 2 gm in 50 mls @ 25 mls/hr 11/19/24 16:14 11/19/24 16:59 Magnesium Sulfate/H2o IV 11/19/24 18:13 25 mls/hr ONCE ONE Administration Medical Decision Making Medical Decision Making [facility] Narrative: Patient is a 29 year old assigned male at with a history of type 1 DM presenting to the emergency department today with fatigue and increased blood sugars. Patient's physical exam was unremarkable - patient non toxic appearing. Patient's blood work showed an initial glucose of 519 but otherwise unremarkable. Patient's urine showed no acute process. Patient's EKG showed a mild QT prolongation. I explained my physical exam findings as well as all test results to the patient. I answered all questions asked by the patient. Patient's clinical presentation is most consistent with hyperglycemia and incidentally found prolonged QTC. Patient received 2 liters of LR and 2 grams of magnesium which, upon re-evaluation, he stated it helped his symptoms significantly. I stressed the importance of the patient taking his medication as directed (either prescribed or as the over the counter packaging recommends). I stressed the importance of the patient following up with his primary care provider. I stressed the importance of the patient returning to the emergency department immediately if his symptoms were to worsen or if he were to develop any dizziness, shortness of breath, difficulty breathing, chest pain, blurry vision, loss of vision, nausea, vomiting, abdominal pain, fever, chills, back pain, or any other complaints. Patient verbalized agreement and understanding with this treatment plan and discharge. Differential Diagnosis Differential Diagnoses: The differential diagnosis associated with the presentation includes Hyperglycemia HHS Fatigue Poor medication compliance Admission/Observation Consideration of admission/observation: Escalation of care including admission/observation considered Patient would have been admitted to the hospital had his work up had any findings where hospital admission was appropriate and his clinical presentation warranted hospital admission. Lab Data [facility] Lab Attestation statement: I reviewed the patient's lab results. My interpretation of these results are in the MDM Rationale portion of this note. 11/19/24 15:14 11/19/24 15:14 Labs: Lab Results 11/19/24 11/19/24 11/19/24 Range/Units 15:14 15:19 15:59 WBC 5.9 (4.8-10.8) X10*3/uL RBC 5.57 (4.60-5.80) X10*6/uL Hgb 16.9 (14.0-18.0) g/dl Hct 45.7 (42.0-52.0) % MCV 82.0 (80.0-98.0) fL MCH 30.3 (27.0-33.0) pg MCHC 37.0 H (31.0-36.0) g/dl RDW 11.9 (11.0-16.0) % Plt Count 196 D (160-400) X10*3/uL MPV 12.2 (9.4-12.4) fL Immature Gran % (Auto) 0.2 (0.0-0.4) % Neut % (Auto) 65.8 (45-73) % Lymph % (Auto) 25.0 (20-40) % [place] % (Auto) 6.8 (2-11) % Eos % (Auto) 1.7 (0-4) % Baso % (Auto) 0.5 (0-2) % Lymph # (Auto) 1.5 (1.2-4.9) X10*3/uL [place] # (Auto) 0.4 (0.1-1.2) X10*3/uL Eos # (Auto) 0.1 (0.0-0.4) X10*3/uL Baso # (Auto) 0.0 (0.0-0.2) X10*3/uL Abs Immat Gran (auto) 0.01 (0.00-0.03) X10*3/uL Absolute Neuts (auto) 3.9 (2.0-8.3) x10*3/uL Absolute Nucleated RBC 0.000 (0.0-0.012) X10*3/uL Nucleated RBC % (auto) 0.0 (0.0-0.2) /100WBC VBG pH 7.40 (7.32-7.43) VBG pCO2 46 mmHg VBG pO2 65 mmHg VBG HCO3 28 H (22-26) mmol/L VBG O2 Saturation 92.0 % VBG Base Excess 3.2 mmol/L Sodium 131 L (135-145) mmol/L Potassium 4.1 (3.3-5.1) mmol/L Chloride 96 (96-108) mmol/L Carbon Dioxide 26 (22-29) mmol/L Anion Gap 13 (12-20) BUN 12 (9-16) mg/dL Creatinine 1.03 (0.5-1.4) mg/dL Estim Creat Clear Calc 113.4 Estimated GFR > 60 POC Glucose 443 H* (60-115) mg/dL Random Glucose 519 H* (60-115) mg/dL Calcium 9.3 D (8.4-10.2) mg/dL Magnesium 2.0 (1.6-2.6) mg/dL Total Bilirubin 0.4 (0.0-1.0) mg/dL Direct Bilirubin 0.1 (0.0-0.5) mg/dL AST 17 (5-37) U/L ALT 22 (0-40) U/L Alkaline Phosphatase 148 H (39-117) U/L Total Protein 6.9 (6.5-8.0) g/dL Albumin 4.3 (3.5-5.0) g/dL Beta-Hydroxybutyrate 0.11 (0.02-0.27) mmol/L Urine Color Yellow Urine Appearance Clear Urine pH 6.5 (5.0-9.0) Ur Specific [place] >= 1.030 H (1.005-1.025) Urine Protein Negative (Neg-Trace) mg/dL Urine Glucose (UA) >=1000 H (Negative) mg/dL Urine Ketones Negative (Negative) mg/dL Urine Blood Negative (Negative) Urine Nitrite Negative (Negative) Ur Leukocyte Esterase Negative (Negative) Urine RBC 0-2 (0-2) /HPF Urine WBC 0-5 (0-5) /HPF Ur Squamous Epith Cells 0-2 (0-2) /HPF Urine Bacteria None Seen (None Seen) Hyaline Casts 0-2 (0-2) /LPF 11/19/24 Range/Units 17:12 WBC (4.8-10.8) X10*3/uL RBC (4.60-5.80) X10*6/uL Hgb (14.0-18.0) g/dl Hct (42.0-52.0) % MCV (80.0-98.0) fL MCH (27.0-33.0) pg MCHC (31.0-36.0) g/dl RDW (11.0-16.0) % Plt Count (160-400) X10*3/uL MPV (9.4-12.4) fL Immature Gran % (Auto) (0.0-0.4) % Neut % (Auto) (45-73) % Lymph % (Auto) (20-40) % [place] % (Auto) (2-11) % Eos % (Auto) (0-4) % Baso % (Auto) (0-2) % Lymph # (Auto) (1.2-4.9) X10*3/uL [place] # (Auto) (0.1-1.2) X10*3/uL Eos # (Auto) (0.0-0.4) X10*3/uL Baso # (Auto) (0.0-0.2) X10*3/uL Abs Immat Gran (auto) (0.00-0.03) X10*3/uL Absolute Neuts (auto) (2.0-8.3) x10*3/uL Absolute Nucleated RBC (0.0-0.012) X10*3/uL Nucleated RBC % (auto) (0.0-0.2) /100WBC VBG pH (7.32-7.43) VBG pCO2 mmHg VBG pO2 mmHg VBG HCO3 (22-26) mmol/L VBG O2 Saturation % VBG Base Excess mmol/L Sodium (135-145) mmol/L Potassium (3.3-5.1) mmol/L Chloride (96-108) mmol/L Carbon Dioxide (22-29) mmol/L Anion Gap (12-20) BUN (9-16) mg/dL Creatinine (0.5-1.4) mg/dL Estim Creat Clear Calc Estimated GFR POC Glucose 283 H (60-115) mg/dL Random Glucose (60-115) mg/dL Calcium (8.4-10.2) mg/dL Magnesium (1.6-2.6) mg/dL Total Bilirubin (0.0-1.0) mg/dL Direct Bilirubin (0.0-0.5) mg/dL AST (5-37) U/L ALT (0-40) U/L Alkaline Phosphatase (39-117) U/L Total Protein (6.5-8.0) g/dL Albumin (3.5-5.0) g/dL Beta-Hydroxybutyrate (0.02-0.27) mmol/L Urine Color Urine Appearance Urine pH (5.0-9.0) Ur Specific [place] (1.005-1.025) Urine Protein (Neg-Trace) mg/dL Urine Glucose (UA) (Negative) mg/dL Urine Ketones (Negative) mg/dL Urine Blood (Negative) Urine Nitrite (Negative) Ur Leukocyte Esterase (Negative) Urine RBC (0-2) /HPF Urine WBC (0-5) /HPF Ur Squamous Epith Cells (0-2) /HPF Urine Bacteria (None Seen) Hyaline Casts (0-2) /LPF Independent Interpretation I performed an independent interpretation of an: EKG Interpretation: I independently interpreted this EKG and am in agreement with the below findings: Vent. Rate: 86 BPM Atrial Rate: 86 BPM P-R Int: 148 ms QRS Dur: 88 ms QT Int: 404 ms P-R-T Axes: 58 65 32 degrees QTcB Int: 483 ms Normal sinus rhythm Prolonged QT When compared with ECG of 16-Aug-2023 03:58, No significant change was found DD/ 1508 Chronic Conditions Patient?s care impacted by: Diabetes Critical Care Time Critical Care Time Critical Care Time: Yes Total Critical Care Time: 32 Attestation: I spent 32 minutes of Critical Care Time with this patient. This does not include time spent on separately reported billable procedures. Discharge Plan Discharge Clinical Impression: Acute hyperglycemia, Prolonged QT interval Patient Disposition: Home, Self-Care Instructions: Diabetic Hyperglycemia (ED) Additional Instructions: Your work up today was reassuring that you are not in DKA. Your EKG showed a prolonged (extended) QT interval - this should be followed up on by your primary care provider. Take your insulin as directed. Follow up with your primary care provider. Return to the emergency department immediately if your symptoms worsen or if you develop any numbness, tingling, dizziness, shortness of breath, difficulty breathing, chest pain, blurry vision, loss of vision, nausea, vomiting, abdominal pain, fever, chills, back pain, or any other complaints. Please see the information below about our Patient Portal. If you are not yet enrolled in the [facility] Patient Portal, you will receive an enrollment email invitation following your visit to any [facility] setting. You may also self-enroll in the Patient Portal by visiting our website: [email or web address] The following information is required to access the Patient Portal: - Your [facility] Medical Record Number - Your personal home email address (must match what is in your electronic medical record, Registration staff can assist with this) - Name - Date of Capabilities of the Patient Portal: - Message some providers - View upcoming appointments - Access your health summary, medical history, and visit history - View current conditions and allergies - View procedure and lab results - View your medications, including guidelines, side effects, and precautions - Complete pre-appointment questionnaires requested by your provider - Ready summary reports of your office visits and procedures To access the Patient Portal Mobile Steve, follow these directions: - Search [employer] in the Steve Store or [employer] Store - Download the Steve - Search for [facility] - Enter your login/password Prescriptions: No Action insulin lispro 100 unit/mL insulin pen See Protocol subcut TIDAC Protocol: Insulin Correction Scale Less than or equal to 110 ---- Give (units): 0 111 to 150 Give (units): 0 151 to 200 Give (units): 2 201 to 250 Give (units): 4 251 to 300 Give (units): 6 301 to 350 Give (units): 8 Greater than 350 Give (units): 10 Call MD if Blood Glucose > : 350 insulin degludec [Tresiba FlexTouch U-100] 100 unit/mL (3 mL) insulin pen 30 unit subcut BID dextromethorphan-guaifenesin 10-100 mg/5 mL Syrup 10 ml PO TID Qty: 237 0RF Rx Instructions: Use for 5 days cefuroxime axetil 500 mg tablet 500 mg PO Q12H Qty: 6 0RF azithromycin 500 mg tablet 500 mg PO DAILY 3 Days Qty: 3 0RF Rx Instructions: start on day 2 of therapy (DME) FreeStyle Ning 2 Cadet Misc See Rx Instructions .ROUTE DIRECTED Qty: 1 Rx Instructions: As directed (DME) FreeStyle Lite Strips Strip See Rx Instructions .ROUTE QID Qty: 10 Rx Instructions: As directed (DME) pen needle, diabetic [BD Ultra-Fine Maria D Pen Needle] 32 gauge x 5/32 needle See Rx Instructions .ROUTE .MEDSUPPLY Qty: 50 Rx Instructions: As directed 7 times day (DME) lancets [TRUEplus Lancets] 33 gauge misc See Rx Instructions .ROUTE QID Qty: 100 Rx Instructions: As directed (DME) blood-glucose meter [FreeStyle [place] Lite] Kit See Rx Instructions .ROUTE QID Qty: 1 Rx Instructions: As directed (DME) Ketone Urine Test Strip See Rx Instructions .Route Qty: 50 1RF Rx Instructions: As directed prn tid (DME) FreeStSpine Pain Management Ning 2 Sensor Kit See Rx Instructions .Route Qty: 2 6RF Rx Instructions: As directed every 14 days Referrals: Emily Aguiar FNP [Primary Care Provider] - Stand Alone Forms: Work/School Release Interventions: ED Discharge Assessment Last Done: 11/19/24 19:10 Discharge Date/Time: 11/19/24 19:31 Print Language: Citizen Of [place]
--- NOTE | 2024-11-19 14:52 | ECG_ITS ---
Test Reason : hyperglycemia Blood Pressure : */* mmHG Vent. Rate : 86 BPM Atrial Rate : 86 BPM P-R Int : 148 ms QRS Dur : 88 ms QT Int : 404 ms P-R-T Axes : 58 65 32 degrees QTcB Int : 483 ms Normal sinus rhythm Prolonged QT Abnormal ECG When compared with ECG of 16-Aug-2023 03:58, No significant change was found Referred By: Daniela Ortega Electronically Signed By: JACQUE MACIAS
[2024-11-19 15:20] LABS: MANUAL DIFF FLAG NO
[2024-11-19 15:22] LABS: Venous Blood Gas Refer to POC result
[2024-11-19 15:23] LABS: VBG Base Excess 3.2 mmol/L; VBG HCO3 28 mmol/L (22-26); VBG pCO2 46 mmHg; VBG pO2 65 mmHg
[2024-11-19 15:32] LABS: Appearance Urine Clear; Color Urine Yellow; Glucose Urine UA >=1000 mg/dL (Negative); Leukocyte Esterase Urine Negative (Negative); Nitrite Urine Negative (Negative); PH 6.5 (5.0-9.0); Specific Gravity - Urine >= 1.030 (1.005-1.025); UMIC TRIGGER UACC YES; Urine Blood Negative (Negative); Urine Ketones Negative (Negative); Urine Protein Negative (Neg-Trace)
[2024-11-19 15:51] LABS: Alanine Aminotransferase 22 U/L (0-40); Albumin Level 4.3 g/dL (3.5-5.0); Anion Gap 13 (12-20); Aspartate Amino Transferase 17 U/L (5-37); Beta-Hydroxybutyrate 0.11 mmol/L (0.02-0.27); Bilirubin Direct 0.1 mg/dL (0.0-0.5); Bilirubin Total 0.4 mg/dL (0.0-1.0); Blood Urea Nitrogen 12 mg/dL (9-16); Calcium 9.3 mg/dL (8.4-10.2); Carbon Dioxide 26 mmol/L (22-29); Chloride 96 mmol/L (96-108); Creatinine Clr Calc Pharmacy 113.4; Estimated Glomerular Filt Rate > 60; Glucose Random 519 mg/dL (60-115); Potassium 4.1 mmol/L (3.3-5.1); Sodium 131 mmol/L (135-145); Total Protein 6.9 g/dL (6.5-8.0)
[2024-11-19 16:04] LABS: Glucose, Whole Blood 443 mg/dL (60-115)
[2024-11-19 16:05] LABS: Basophils Percent Auto 0.5 % (0-2); Eosinophils Absolute Auto 0.1 X10*3/uL (0.0-0.4); Eosinophils Percent Auto 1.7 % (0-4); Hematocrit 45.7 % (42.0-52.0); Hemoglobin 16.9 g/dl (14.0-18.0); Imm Gran Abs Auto 0.01 X10*3/uL (0.00-0.03); Imm Gran Pct Auto 0.2 % (0.0-0.4); Lymphocytes Absolute Auto 1.5 X10*3/uL (1.2-4.9); Mean Corpuscular Hemoglobin 30.3 pg (27.0-33.0); Mean Platelet Volume 12.2 fL (9.4-12.4); Monocytes Absolute Auto 0.4 X10*3/uL (0.1-1.2); Monocytes Percent Auto 6.8 % (2-11); Neutrophils Absolute Auto 3.9 x10*3/uL (2.0-8.3); Neutrophils Percent Auto 65.8 % (45-73); Platelet Count 196 X10*3/uL (160-400); Red Blood Count 5.57 X10*6/uL (4.60-5.80); Red Cell Distribution Width 11.9 % (11.0-16.0); White Blood Count 5.9 X10*3/uL (4.8-10.8)
[2024-11-19] MEDS: Lactated Ringers 1,000 ML 999 ML IV ×2 (16:07→16:08)
[2024-11-19 16:09] LABS: Bacteria Urine None Seen (None Seen); Hyaline Casts Urine 0-2 /LPF (0-2); RBC Urine 0-2 /HPF (0-2); Squamous Epithelial Cell Urine 0-2 /HPF (0-2); WBC Urine 0-5 /HPF (0-5)
[2024-11-19 16:24] LABS: Alkaline Phosphatase 148 U/L (39-117)
--- OUTSIDE RECORDS SUMMARY | 2024-11-19 16:29 | XMS_ITS | Clinical Summary ---
Author Organization [employer] Address [address] [facility] [address] [place] [address] Care Team Providers Care Gold Buyer Name Role Phone [facility] Primary Care Provider [phone] [facility] Unavailable [phone] Allergies No known active allergies Medications * This document contains information received from the source organization and may not represent a complete record from that organization. Lancets 33G misc Check blood sugar four times daily Active glucose blood test strip 1 each by Other route if needed. Check BS by skin route 4 times every day Active Continuous Blood Gluc Foam Caster (KahnoodleStyle Ning 2 [place]) device Use per package instructions Active Blood Pressure kit Use by arm route 1-2 times every day Active Alcohol Swabs (Alcohol Prep) pads For skin prep Active acetaminophen (Tylenol) 500 MG tabletIndications :Bora Chauhan DDS Take by mouth. Take 1 tablet (500mg) by oral route every 6 hours as needed Active BD Pen Needle Maria D U/F 32G X 4 MM misc USE WITH INSULIN PEN UP TO FIVE TIMES DAILY DIRECTED 03/02/20 23 Active cetirizine (ZyrTEC) 10 MG tabletIndications :Seasonal allergies Take 1 tablet (10 mg) by mouth in the morning. 30 tablet 5 08/15/19 24 Active glucose 4 g chewable tabletIndications :Type 1 diabetes mellitus with hyperglycemia (CMS/HCC) CHEW 4 TABLETS IF NEEDED FOR LOW BLOOD SUGAR 50 tablet 11 12/28/19 24 Active olmesartan (Benicar) 5 MG tabletIndications :Primary hypertension TAKE 2 TABLETS BY MOUTH EVERY DAY 180 tablet 1 12/28/19 24 Active QUEtiapine (SEROquel) 25 MG tabletIndications :Insomnia due to other mental disorder TAKE 1 TABLET BY MOUTH AT BEDTIME 30 tablet 1 12/28/19 24 Active escitalopram (Lexapro) 10 MG tabletIndications :Moderate episode of recurrent major depressive disorder (CMS/HCC) TAKE 1 TABLET BY MOUTH EVERY MORNING 30 tablet 1 12/28/19 24 Active hydrOXYzine HCl (Atarax) 25 MG tabletIndications :Moderate episode of recurrent major depressive disorder (CMS/HCC) TAKE 1 TABLET BY MOUTH EVERY 6 HOURS IF NEEDED FOR ANXIETY 120 tablet 12/28/19 24 Active ibuprofen 600 MG tabletIndications :Moderate episode of recurrent major depressive disorder (CMS/HCC) TAKE 1 TABLET BY MOUTH EVERY 8 HOURS NEEDED FOR MILD PAIN 30 tablet 1 12/28/19 24 Active Ventolin HFA 108 (90 Base) MCG/ACT inhaler INHALE 2 PUFFS BY MOUTH EVERY 4 TO 6 HOURS NEEDED FOR WHEEZING OR SHORTNESS OF BREATH 09/19/19 24 Active Acetone, Urine, Test (Ketone Test) strip USE DIRECTED THREE TIMES DAILY NEEDED 02/12/20 24 Active insulin degludec (Tresiba FlexTouch) 100 UNIT/ML injectionIndicati ons:Type 1 diabetes mellitus with hyperglycemia (CMS/HCC) Inject 40 Units under the skin at bedtime. 3 mL 12 05/05/20 24 025 Active insulin lispro (HumaLOG) 100 unit/ml injectionIndicati ons:Please review instructions with patient Inject by subcutaneous route per sliding scale. Inject 8 units for premeal blood sugar 150-199; 10 units for BS 200-249; 12 units for BS 250-299; 14 units for BS 300-349; 16 units for BS >350. 15 mL 3 05/05/20 24 Active Continuous Glucose Sensor (FreeStyle Ning 2 Sensor) miscIndications:T ype 1 diabetes mellitus with hyperglycemia (CMS/HCC) USE WITH READER PER PACKAGE INSTRUCTIONS 2 each 3 05/05/20 24 Active Active Problems Problem Noted Date Diagnosed Date PTSD (post-traumatic stress disorder) 09/06/2023 TOM (generalized anxiety disorder) 08/23/2023 Panic attacks 08/23/2023 Moderate episode of recurrent major depressive d isorder 08/15/2023 Overview (08/15/2023): ?? PHQ-9 24 ?? START lexapro 10mg daily. Reviewed administration, risks, side effects to include feeling anxious, jittery, or restless, trouble sleeping, fatigue, headaches, nausea or upset stomach, dry mouth, sexual dysfunction and weight gain. Stop taking this medication and seek immediate medical care if experiencing thoughts of suicide, fever, muscle rigidity, changes in blood pressure or heart palpitations. Risk of rare but serious side effects increases if taking multiple medications for depression or anxiety simultaneously. ?? Hydroxyzine PRN for insomnia/anxiety ?? STAT referral to for remote BE ?? Contact HC if sx worsen or experiencing thoughts of SI or self harm. Pt has N crisis contact information Primary hypertension 09/13/2022 Overview (08/15/2023): ?? Olmesartan 10mg daily - Aerobic exercise to reduce BP. Initial goal of 30 min walk 3-5x/week. Increase as tolerated. - low-sodium diet (goal: <2g/day) and heart healthy diet such as DASH to reduce BP and prevent ASCVD. - Home BP monitoring 1-2 x day with goal of <140/90. - Seek immediate medical attention for chest pain, palpitations, SOB, syncope, or sudden changes in mental status. - Do not change or discontinue current prescriptions without first consulting health care provider Assessment & Plan (08/15/2023 5:18 PM EST): ?? Did not take medications today ?? Continue olmesartan 10mg daily ?? Encouraged regular home BP monitoring ?? Update labs Assessment & Plan (01/12/2023 5:19 PM EDT): ?? INCREASE olmesartan to 10mg daily Type 1 diabetes mellitus with hyperglycemia 06/15 Overview (01/12/2023): ?? 32 units lantus ?? Lispro per sliding scale: ?? Inject 8 units for premeal blood sugar 150-199; 10 units for BS 200-249; 12 units for BS 250-299; 14 units for BS 300-349; 16 units for BS >350. ?? Followed by [facility] [place] BMP: Pending Microalbumin: Pending Foot Exam: Complete at follow up Eye Exam: Discuss at follow up Lipid panel: Pending ASCVD: Calculate pending updated labs Statin: Yes ASA: No KWAN/ARB: Yes Encouraged regular aerobic exercise for improved glycemic control Encouraged daily foot checks Encouraged lean protein snacks and to avoid foods high in sugar and simple carbohydrates Treatment Goals: A1c goal: <7% FBG goal: <130 2 hour post prandial goal: <180 Assessment & Plan (05/05/2024 11:55 AM EDT): Glucose is elevated today, ketones positive, recommended patient to visit ED. Discussed medication refills as needed. Ordered a Glucose sensor for continued monitoring. Assessment & Plan (08/15/2023 5:23 PM EST): ?? POC glucose [facility] s/p 10 units lispro in office. Ketones negative in UA. Patient advised to repeat BS at home and encouraged hydration. If no improvement in home BS levels proceed to emergency department. Patient verbalizes understanding and agrees to plan ?? Will prioritize nighttime insulin which patient is able to take consistently. ?? STOP lantus. START tresiba 40 units at bedtime ?? STAT referral to [facility] endocrinology for titration and insulin pump ?? Labs ordered Assessment & Plan (01/12/2023 5:18 PM EDT): ?? INCREASE sliding scale by 2 units ?? Continue lantus 32 units at bedtime ?? 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 Encounters Date Type Department Care Team Description 11/19/2024 Orders Only GENERIC EXTERNAL DATA DEPARTMENT Provider, Generic External Data 11/19/[address] [facility] [address] [place] [address] NorthomeEmily FNP Type 1 diabetes mellitus with hyperglycemia ([facility]) 11/19/[address] [facility] [address] [place] [address] [facility] Mon[facility] Family History Medical History Relation Name Comments Diabetes type I Father Diabetes type I Sister Relation Name Status Comments Father Sister Social History Tobacco Use Types Packs/Day Years Used Date Smoking Tobacco: Every Day Cigarettes Smokeless Tobacco: Never Tobacco Cessation:Ready to Q uit: Not Asked; Counseling Given: Not Answered Comments:Smokes marijuana every night Alcohol Use Standard Drinks/Week Comments Never 0 (1 standard drink = 0.6 oz pur e alcohol) Depression Answer Date Recorded Patient Health Questionnaire-9 Score 6 04/10/2024 Patient Health Questionnaire-9 Score 6 04/10/2024 Last PHQ-9: Questionnaire Data Not on file 0 04/10/2024 Housing Stability Answer Date Recorded What is your housing situation today? I have jorge parikh 04/30/[address] you li ve. Do you have problems with any of the following? None of the above 04/30/2023 Food Insecurity Answer Date Recorded Within the past 12 months, y ou worried that your food would run out before you got money to buy more: Never True 04/30/2023 Within the past 12 months,th e food you bought just didn't last and you didn't have enough money to get more: Never True Transportation Answer Date Recorded In the past 12 months, has l ack of transportation kept you from medical appts, meetings, work or from getting things needed for daily living? No 04/30/2023 Utilities Answer Date Recorded In the past 12 months, has t he electric, gas, oil or water company threatened to shut off services in your home? No 04/30/2023 Depression Answer Date Recorded Patient Health Questionnaire-2 Score 2 04/10/2024 Sex and Gender Information Value Date Recorded Sex Assigned at Male 06/14/2022 2:46 PM EST Legal Sex Male 2:46 PM EST Gender Identity Male 06/14/2022 2:46 PM EST Sexual Orientation Straight 06/14/2022 2: 46 PM EST Last Filed Vital Signs Vital Sign Reading Time Taken Comments Blood Pressure 141/96 11/19/2024 1:51 PM EDT Pulse 83 11/19/2024 1:51 PM EDT Temperature 36.4 ??C (97.5 ??F) 11/19/2024 1:51 PM ED T Respiratory Rate 16 11/19/2024 1:51 PM EDT Oxygen Saturation 99% 11/19/2024 1:51 PM EDT Inhaled Oxygen Concentration - - Weight 78.5 kg (173 lb) 05/05/2024 11:31 AM EDT Height 183 cm (6' 0.05 ) 05/05/2024 11:31 AM EDT Body Mass Index 23.43 05/05/2024 11:31 AM EDT Plan of Treatment Upcoming Encounters Date Type Department Care Team (Late st Contact Info) Description 12/22/2024 2:30 PM EDT Office Visit [facility] [address] [place] [address] Carmine, Kimberly, OD [address] [place] [address] Health Maintenance Due Date Last Done Comments HIV Screening 1994 Diabetes: Foot Exam 2004 Alcohol/Substance Use Screening 2006 Family Planning (PISQ) 2009 Hepatitis C Screening 2012 DTaP/Tdap/Td Vaccines (1 - Tdap) 2013 Hepatitis B Vaccines (1 of 3 - 19+ 3-dose series) 2013 Pneumococcal Vaccine: Pediatrics (0 to 5 Years) and At-Risk Patients (6 to 49) Years) (1 of 2 - PCV) 2013 Dental Oral Exam 12/04/2022 06/05/2022 Dental Prophylaxis 12/04/2022 06/05/2022 Dental X-Ray: Bitewings 06/06/2023 06/05/2022, 05/17 Lipid Panel 06/06/2023 06/06/2022 SDOH Screening 06/26/2023 06/26/2022 Diabetes: Hemoglobin A1C 02/28/2024 024, 08/15/2023, 01/09/2023 COVID-19 Vaccine ( - season) 2024 Influenza Vaccine (#1) 2024 Diabetes: Urine Protein Screening 11/27/2024 11/28/2023, 06/06/2022 Tobacco Screening 11/27/2024 11/28/2023 Eye Exam 03/15/2025 03/15/2023, 08/3 07/2022, 03/15/2023, Additional history exists Depression Screening 04/10/2025 04/10/2024, 04/10/20 Dental X-Ray: Full Mouth 06/06/2025 06/05/2022, 1108/2021 Zoster Vaccines (1 of 2) 2044 RSV Patients and Patients Aged 60 years or older (1 - 1-dose 75+ series) 2069 HIB Vaccines Aged Out No longer eligi ble based on patient's age to complete this topic HPV Vaccines Aged Out No longer eligi ble based on patient's age to complete this topic Hepatitis A Vaccines Aged Out No long er eligible based on patient's age to complete this topic IPV Vaccines Aged Out No longer eligi ble based on patient's age to complete this topic Meningococcal Vaccine Aged Out No guillermina natalie eligible based on patient's age to complete this topic RSV under 20 months Aged Out No longe r eligible based on patient's age to complete this topic Rotavirus Vaccines Aged Out No longer eligible based on patient's age to complete this topic Goals Goal Patient Goal Type Associated Problems Recent Progress Patient-Stated? Author Patient will manage their medication General On track( 022 12:26 PM EST) Yes Melissa Lindsay, RN Note: I will continue to try my best to take my insulins as prescribed. Procedures Procedure Name Priority Date/Time Associated Diagnosis Comments GLUCOSE, WHOLE BLOOD Routine 11/19/2024 3:59 PM EDT VENOUS BLOOD GAS Routine 11/19/2024 3:19 PM EDT CBC WITH AUTO DIFFERENTIAL Routine 11/19/2024 3:14 PM EDT BETA-HYDROXYBUTYRATE Routine 11/19/2024 3:14 PM EDT MAGNESIUM Routine 11/19/2024 3:14 PM EDT BASIC METABOLIC PANEL Routine 11/19/2024 3:14 PM EDT HEPATIC FUNCTION PANEL Routine 11/19/2024 3:14 PM EDT URINALYSIS, COMPLETE, WITH REFLEX TO CULTURE Routine 11/19/2024 3:14 PM EDT POCT GLUCOSE Routine 11/19/2024 1:59 PM EDT Type 1 diabetes mellitus with hyperglycemia (CMS/HCC) POCT URINALYSIS DIPSTICK Routine 11/19/2024 1:29 PM EDT Type 1 diabetes mellitus with hyperglycemia (CMS/HCC) POCT GLUCOSE Routine 11/19/2024 1:29 PM EDT Type 1 diabetes mellitus with hyperglycemia (CMS/HCC) ALBUMIN, RANDOM URINE W/CREATININE Routine 11/28/2023 1:21 PM EDT Type 1 diabetes mellitus with hyperglycemia (CMS/HCC) POCT GLYCATED HEMOGLOBIN, TOTAL Routine 11/28/2023 12:04 PM EDT Type 1 diabetes mellitus with hyperglycemia (CMS/HCC) LIPID PANEL, STANDARD Routine 06/06/2022 8:50 AM EST PROPHYLAXIS - ADULT Routine 06/05/2022 1 2:00 AM EST INTRAORAL - COMPLETE SERIES OF RADIOGRAPHIC IMAGES Routine 06/05/2022 12:00 AM EST COMPREHENSIVE ORAL EVALUATION - NEW OR ESTABLISHED PATIENT Routine 06/05/2022 12:00 AM EST from Last 3 Months or Most Recently Relevant to Health Maintenance Results * (ABNORMAL) Glucose, Whole Blood (11/19/2024 3:59 PM EDT) Glucose, Whole Blood 443(HH) 60 - 115 mg/dL [facility] Comment:METER #: [id number] 11/19/2024 3:59 PM EDT 11/19/2024 4:03 PM EDT us Generic External Data Provider LAB BLOOD ORDERAB LES Final Result [facility] [address] [place] [address] [phone] * (ABNORMAL) VENOUS BLOOD GAS (11/19/2024 3:19 PM EDT) VBG pH 7.40 7.32 - 7.43 [facility] Comment:METER #: [id number] additional_comment: Cb toucheg VBG PCO2 46 mmHg [facility] Comment:METER #: [id number] additional_comment: Cb toucheg VBG PO2 65 mmHg [facility] Comment:METER #: [id number] additional_comment: Cb toucheg VBG Base Excess 3.2 mmol/L [facility] Comment:METER #: [id number] additional_comment: Cb toucheg VBG HCO3 28(H) 22 - 26 mmol/L [facility] Comment:METER #: [id number] additional_comment: Cb toucheg O2 Sat, Gadiel 92.0 % [facility] Comment:METER #: [id number] additional_comment: Cb toucheg 11/19/2024 3:19 PM EDT 11/19/2024 3:23 PM EDT us Generic External Data Provider LAB BLOOD ORDERAB LES Final Result [facility] [address] [place] [address] [phone] * (ABNORMAL) Urinalysis, Complete, with Reflex to Culture (11/19/2024 3:14 PM EDT) Color Urine Yellow [facility] Appearance Urine Clear [facility] PH 6.5 5.0 - 9.0 [facility] Glucose Urine UA >=1000(A) Negative mg/dL [facility] Urine Blood Negative Negative [facility] Specific Nunn - Urine >=1.030(H) 1.005 - 1.025 [facility] Urine Protein Negative Neg-Trace mg/dL [facility] Urine Ketones Negative Negative mg/dL [facility] Nitrite Urine Negative Negative [facility] Leukocyte Esterase Urine Negative Negative [facility] RBC Urine 0-2 0 - 2 /HPF [facility] Urine WBC 0-5 0 - 5 /HPF [facility] Urine Squamous Epithelial Cell 0-2 0 - 2 /HPF [facility] Urine Bacteria None Seen None Seen [facility] Hyaline Casts, Urine 0-2 0 - 2 /LPF [facility] 11/19/2024 3:14 PM EDT 11/19/2024 3:18 PM EDT Narrative [facility] - 11/19/2024 4:22 PM EDT [id number], Clean Catch Generic External Data Provider LAB URINE ORDERAB LES Final Result Performing Organization Address [facility]/ZIP Co de Phone Number [facility] [address] [place] [phone] * Beta-Hydroxybutyrate (11/19/2024 3:14 PM EDT) Pathologist [facility] Beta-Hydroxybut yrate 0.11 0.02 - 0.27 mmol/L [facility] 11/19/2024 3:14 PM EDT 11/19/2024 3:18 PM EDT Generic External Data Provider LAB BLOOD ORDERAB LES Final Result Performing Organization Address City/[facility] Co de Phone Number [facility] [address] [place] [phone] * (ABNORMAL) CBC auto differential (11/19/2024 3:14 PM EDT) White Blood Count 5.9 4.8 - 10.8 X10*3/uL [facility] Red Blood Count 5.57 4.60 - 5.80 X10*6/uL [facility] Hemoglobin 16.9 14.0 - 18.0 g/dl [facility] Hematocrit 45.7 42.0 - 52.0 % [facility] Mean Corpuscular Volume 82.0 80.0 - 98.0 fL [facility] Mean Corpuscular Hemoglobin 30.3 27.0 - 33.0 pg [facility] Mean Corpuscular HGB Conc 37.0(H) 31.0 - 36.0 g/dl [facility] Red Cell Distribution Width 11.9 11.0 - 16.0 % [facility] Platelet Count 196 160 - 400 X10*3/uL [facility] Mean Platelet Volume 12.2 9.4 - 12.4 fL [facility] Neutrophils Percent Auto 65.8 45 - 73 % [facility] Imm Gran Pct Auto 0.2 0.0 - 0.4 % [facility] Lymphocytes Percent Auto 25.0 20 - 40 % [facility] Monocytes Percent Auto 6.8 2 - 11 % [facility] Eosinophils Percent Auto 1.7 0 - 4 % [facility] Basophils Percent Auto 0.5 0 - 2 % [facility] NRBC Pct Auto 0.0 0.0 - 0.2 /100WBC [facility] Neutrophils Absolute Auto 3.9 2.0 - 8.3 x10*3/uL [facility] Imm Gran Abs Auto 0.01 0.00 - 0.03 X10*3/uL [facility] Lymphocytes Absolute Auto 1.5 1.2 - 4.9 X10*3/uL [facility] Monocytes Absolute Auto 0.4 0.1 - 1.2 X10*3/uL [facility] Eosinophils Absolute Auto 0.1 0.0 - 0.4 X10*3/uL [facility] Basophils Absolute Auto 0.0 0.0 - 0.2 X10*3/uL [facility] NRBC Abs Auto 0.000 0.0 - 0.012 X10*3/uL [facility] 11/19/2024 3:14 PM EDT 11/19/2024 3:18 PM EDT Generic External Data Provider LAB BLOOD ORDERAB LES Final Result Performing Organization Address [facility]/ZIP Co de Phone Number [facility] [address] [place] [phone] * Magnesium (11/19/2024 3:14 PM EDT) [facility] Magnesium 2.0 1.6 - 2.6 mg/dL [facility] 11/19/2024 3:14 PM EDT 11/19/2024 3:18 PM EDT Generic External Data Provider LAB BLOOD ORDERAB LES Final Result Performing Organization Address [facility] Phone Number [facility] [address] [place] [phone] * (ABNORMAL) Hepatic Function Panel (11/19/2024 3:14 PM EDT) [facility] Bilirubin, Total 0.4 0.0 - 1.0 mg/dL [facility] Bilirubin, Direct 0.1 0.0 - 0.5 mg/dL [facility] Aspartate Amino Transferase 17 5 - 37 U/L [facility] Alanine Aminotransferase 22 0 - 40 U/L [facility] Total Protein 6.9 6.5 - 8.0 g/dL [facility] Albumin Level 4.3 3.5 - 5.0 g/dL [facility] Alkaline Phosphatase 148(H) 39 - 117 U/L [facility] 11/19/2024 3:14 PM EDT 11/19/2024 3:18 PM EDT Generic External Data Provider LAB BLOOD ORDERAB LES Final Result Performing Organization Address [facility] Co de Phone Number [facility] [address] [place] [phone] * (ABNORMAL) Basic Metabolic Panel (11/19/2024 3:14 PM EDT) Sodium 131(L) 135 - 145 mmol/L [facility] Potassium 4.1 3.3 - 5.1 mmol/L [facility] Chloride 96 96 - 108 mmol/L [facility] Carbon Dioxide 26 22 - 29 mmol/L [facility] Anion Gap 13 12 - 20 [facility] Urea Nitrogen (BUN) 12 9 - 16 mg/dL [facility] Creatinine, Serum 1.03 0.5 - 1.4 mg/dL [facility] Creatinine Clr Calc Pharmacy 113.4 [facility] Comment:eGFR (calculated fro m the MDRD study equation) and eCrCl(calculated from the Cockcroft-Gault equation) are based ondifferent parameters and may not yield comparable results.If eCrCl result is absurd, please check patient'sheight/weight. Estimated Glomerular Filt Rate >60 [facility] Comment:Chronic Kidney Disea se: Estimated GFR < 60 mL/min/1.19k9Cjsoix Kidney Disease: Estimated GFR < 15 mL/min/1.73m2 Glucose 519(HH) 60 - 115 mg/dL [facility] Comment:Critical value for t est(s): GLUR Results called to and readback by: DIANE Person calling: JULISSA Date: 11.19.24 Time:1550 Calcium 9.3 8.4 - 10.2 mg/dL [facility] 11/19/2024 3:14 PM EDT 11/19/2024 3:18 PM EDT us Generic External Data Provider LAB BLOOD ORDERAB LES Final Result [facility] [address] [place] [address] [phone] * (ABNORMAL) POCT Glucose (11/19/2024 1:59 PM EDT) Only the most recent of2 resultswithin the time period is included. Glucose Blood, POC 500(A) 60 - 200 mg/dL Comment:H Blood Capillary blood specimen / Unknown 11/19/2024 1:59 PM EDT us Les Denise MD POINT OF CARE TEST ENTER/EDIT OR DERABLES Final Result * (ABNORMAL) POCT Urinalysis (11/19/2024 1:29 PM EDT) Color, UA Colorless Clarity, UA Clear Glucose, UA 3+ 500+++ Bilirubin, UA Negative Ketones, UA Negative Spec Grav, UA 1.010 Blood, UA Negative Negative, None Detected pH, UA 7.0 Protein, UA Negative Urobilinogen, UA 0.2 Leukocytes, UA Negative Negative, Rare, Trace Nitrite, UA Negative Negative, None Detected Urine 11/19/2024 1:29 PM EDT Les Denise MD POINT OF CARE TEST ENTER/EDIT OR DERABLES Final Result * Albumin, Random Urine W/Creatinine (11/28/2023 1:21 PM EDT) Creatinine, Urine 37.28 mg/dL [facility] Microalbumin Urine <5.0 mg/L [facility] Microalbum Creatinine Ratio Ur TNP <30 ug/mg cr [facility] Comment:Unable to calculate albumin/creatinine ratio due to lowmicroalbumin or creatinine result. Urine 11/28/2023 1:21 PM EDT 11/28/2023 3:53 PM EDT [facility] URINE ORDERABLES Final Re sult [facility] [address] [place] [address] [phone] * (ABNORMAL) POCT HGB A1C (11/28/2023 12:04 PM EDT) Hemoglobin A1C 13.9(A) 4.0 - 6.0 % QC Media Lot # [id number] Lot# Expiration Date [id number] Blood 11/28/2023 12:0 4 PM EDT [facility] POINT OF CARE TEST ENTER/EDIT ORDERABLES Final Result * (ABNORMAL) LIPID PANEL, STANDARD (06/06/2022 8:50 AM EST) Chol/HDLC Ratio 4.1 <5.0 (calc) [facility] Cholesterol, Total 219(H) <200 mg/dL [facility] HDL Cholesterol 53 > OR = 40 mg/dL [facility] LDL Cholesterol 144(H) mg/dL (calc) [facility] Comment: Reference range: <100 ?? Desirable range <100 mg/dL for primary prevention; ?? <70 mg/dL for patients with CHD or diabetic patients ?? with > or = 2 CHD risk factors. ?? LDL-C is now calculated using the Kristi ?? calculation, which is a validated novel method providing ?? better accuracy than the Friedewald equation in the ?? estimation of LDL-C. ?? Per SEALS et al. AMOR. 2013;310(19): 3931-4698 ?? (http://education.Nevigo.MoSync/faq/WVN617) Non-HDL Cholesterol 166(H) <130 mg/dL (calc) CONVERTED LEGACY LABS Comment: For patients with diabetes plus 1 major ASCVD risk ?? factor, treating to a non-HDL-C goal of <100 mg/dL ?? (LDL-C of <70 mg/dL) is considered a therapeutic ?? option. Triglycerides 104 <150 mg/dL CONVE RTED LEGACY LABS 06/06/2022 8:50 AM EST [facility] FLAG MAKER LAB BLOOD ORDERABLES Final Re sult CONVERTED LEGACY LABS from Last 3 Months or Most Recently Relevant to Health Maintenance Insurance [facility] , [address] [place] [address] [place] ST[place] ADULT Care Teams Gold Buyer Relationship Specialty Start Date End Date Emily Aguiar FNP [address] [place] [address] PCP - General Family Medicine 06/13/22 Emily Aguiar FNP [address] [place] [address] Family Medicine 06/13/22
--- OUTSIDE RECORDS SUMMARY | 2024-11-19 16:29 | XMS_ITS | Encounter Summary ---
Author Organization [employer] Address [address] [facility] 7t [place] [address] Care Team Providers Care Lawyer Criminal Name Role Phone [facility] Primary Care Provider [phone] [facility] ASSISTANT PROFESSOR OF HISTORY Unavailable [phone] Encounter Details Date Type Department Care Team ([facility] st Contact Info) Description 09/05/2023 Orders Only [facility] MEDICINE [address] [place], [place] [phone] [facility] [address] [place] [address] Social History Tobacco Use Types Packs/Day Years Used Date Smoking Tobacco: Every Day Cigarettes Smokeless Tobacco: Never Comments:Smokes marijuana ev adam night Alcohol Use Standard Drinks/Week Comments Never 0 (1 standard drink = 0.6 oz pur e alcohol) Depression Answer Date Recorded Patient Health Questionnaire-9 Score 17 09/06/2023 Patient Health Questionnaire-9 Score 17 09/06/2023 Last PHQ-9: Questionnaire Data Not on file 0 09/06/2023 Housing Stability Answer Date Recorded What is [...] Answer Date Recorded Patient Health Questionnaire-2 Score 4 09/06/2023 Sex and Gender Information Value Date Recorded Sex Assigned at Male 06/14/2022 2:46 PM EST Legal Sex Male 2:46 PM EST Gender Identity Male 06/14/2022 2:46 PM EST Sexual Orientation Straight 06/14/2022 2: 46 PM EST documented as of this encounter Plan of Treatment Upcoming Encounters Date Type Department Care Team (Late st Contact Info) Description 12/22/2024 2:30 PM EDT Office Visit [facility] OPTOMETRY [address] [place], [place] [phone] Carmine, Kimberly, OD [address] [place] [address] documented as of this encounter Goals Goal Patient Goal Type Associated Problems Recent Progress Patient-Stated? Author Patient will manage their medication General On track( 022 12:26 PM EST) Yes Melissa Lindsay, RN Note: I will continue to try my best to take my insulins as prescribed. documented as of this encounter Visit Diagnoses Not on filedocumented in this encounter Additional Health Concerns Assessment Noted Time PHQ-9 Depression Total Score: 22 024 8:36 AM EST documented as of this encounter Care Teams Lawyer Criminal Relationship Specialty Start Date End Date Emily Aguiar FNP [address] [place] [address] PCP - General Family Medicine 06/13/22 Emily Aguiar FNP [address] [place] [address] Family Medicine 06/13/22 documented as of this encounter
--- OUTSIDE RECORDS SUMMARY | 2024-11-19 16:29 | XMS_ITS | Encounter Summary ---
Author Organization [employer] Address [address] [facility] 7t [place] [address] Care Team Providers Care Laboratory Equipment Installer Name Role Phone [facility] Primary Care Provider [phone] [place] REFRIGERATION PERSON Unavailable [phone] Encounter Details Date Type Department Care Team ([facility] st Contact Info) Description 11/19/2024 Refill [facility] MEDICINE [address] [place], [place] [phone] [facility] [address] [place] [address] Type 1 diabetes mellitus with hyperglycemia ([facility]) Social History Tobacco Use Types Packs/Day Years [...] PM EST documented as of this encounter Miscellaneous Notes * Telephone Encounter - Carine Luke RN - 11/19/2024 2:14 PM EDT Patient presents to walk in center states he glucose levels are high and reports dry mouth with increased urinary frequency he was brought back to be triaged. Pt states that he ran out of insulin andhasn't taken Humalog or Tresiba since Sunday. Pharmacy called pt while in triage pt picked up up medication and self dosed 20 units of Humalog obtained urine glucose 500 ketones negative spoke to Dr Howie gave verbal report will repeat glucose still reads [facility] .Patient states he is out of free style Disha 3 sensors he needs script for that and does not have a working meter at home. Pt BP noted to be elevated 141/96 last BP noted in chart 150/100 states he use to be on BP medication stopped medication a year ago because his BP was good educated pt that his BP was WNL due to medication. Patient will go to ED now expected called into [facility] ED Will send to red team nurses for status check and follow up care. documented in this encounter Plan of Treatment Upcoming Encounters Date Type Department Care Team (Late st Contact Info) Description 12/22/2024 2:30 PM EDT Office Visit [facility] OPTOMETRY [address] [place], [place] [phone] Carmine, Kimberly, OD [address] [place], [place] [phone] documented as of this encounter Goals Goal Patient Goal Type Associated Problems Recent Progress Patient-Stated? Author Patient will manage their medication General On track( 022 12:26 PM EST) Yes Melissa Lindsay, DIONISIO Note: I will continue to try my best to take my insulins as prescribed. documented as of this encounter Visit Diagnoses Diagnosis Type 1 diabetes mellitus with hyperglycemia ([facility]) documented in this encounter Additional Health Concerns Assessment Noted Time PHQ-9 Depression Total Score: 6 04/10/20 24 2:20 PM EDT documented as of this encounter Care Teams Laboratory Equipment Installer Relationship Specialty Start Date End Date Emily Aguiar FNP [address] [place] [address] PCP - General Family Medicine 06/13/22 Emily Aguiar FNP [address] [place] [address] Family Medicine 06/13/22 documented as of this encounter
--- OUTSIDE RECORDS SUMMARY | 2024-11-19 16:29 | XMS_ITS | Encounter Summary ---
Author Organization [employer] Address [address] [place] [address] 7 [place] [address] Care Team Providers Care Surgical Technologist Name Role Phone [facility] Primary Care Provider [facility] Primary Care Provider [phone] [facility] LEARNING DISABILITIES RESOURCE TEACHER Unavailable [phone] Encounter Details Date Type Department Care Team (Latest Contact Info) Description 06/05/2022 Abstract [facility] CONVERSIONS Dental, Provider, DDS Social History Tobacco Use Types Packs/Day Years Used Date Smoking Tobacco: Never Assessed Sex and Gender Information Value Date Recorded Sex Assigned at Male 06/14/2022 2:46 PM EST Legal Sex Male 2:46 PM EST Gender Identity Male 06/14/2022 2:46 PM EST Sexual Orientation Straight 06/14/2022 2: 46 PM EST documented as of this encounter Plan of Treatment Upcoming Encounters Date Type Department Care Team ([facility] st Contact Info) Description 12/22/2024 2:30 PM EDT Office Visit [facility] OPTOMETRY [address] [place] [address] Carmine, Kimberly, OD [address] [place] [address] documented as of this encounter Visit Diagnoses Not on filedocumented in this encounter Care Teams Surgical Technologist Relationship Specialty Start Date End Date Emily Aguiar FNP [address] [place] [address] PCP - General Family Medicine 06/05/22 06/12/22 Emily Aguiar FNP [address] [place] [address] PCP - General Family Medicine 06/13/22 Emily Agui[place] [address] Family Medicine 06/13/22 documented as of this encounter
--- OUTSIDE RECORDS SUMMARY | 2024-11-19 16:29 | XMS_ITS | Encounter Summary ---
Author Organization [employer] Address [address] [place] [address] Care Team Providers Care Bridge Painter Name Role Phone [place] [employer] Primary Care Provider [phone] [place] Emily AIR BAG STRIPPER Unavailable [phone] Reason for Visit * Reason Onset Date Comments Dental Pain 06/20/2022 Patient had ext done on 06/[address] Eason in [facility]. He said he continues to have pain and swelling. He has taken all of his oxycodone and ibuprofen but still taking the antibiotics. He wanted another script for medication sent to pharmacy. Email sent to [facility] for assistance. DR Encounter Details Date Type Department Care Team (Late st Contact Info) Description 06/20/2022 Telephone [facility] ADULT DENTAL [address] [place] [address] Dental, Provider, DDS Dental Pain (Patient had ext done on 06/[address] Eason in [facility]. He said he continues to have pain and swelling. He has taken all of his oxycodone and ibuprofen but still taking the antibiotics. He wanted another script for medication sent to pharmacy. Email sent to [facility] for assistance. ) Social History Tobacco Use Types Packs/Day Years Used Date Smoking Tobacco: Never Assessed Sex and Gender Information Value Date Recorded Sex Assigned at Male 06/14/2022 2:46 PM EST Legal Sex Male 2:46 PM EST Gender Identity Male 06/14/2022 2:46 PM EST Sexual Orientation Straight 06/14/2022 2: 46 PM EST documented as of this encounter Miscellaneous Notes * Telephone Encounter - Rosalie Sal - 06/20/2022 1:01 PM EST Request for appt forwarded to Kristie via email. I do not schedule for oral surgery. * Telephone Encounter - Rosalie Sal - 06/20/2022 9:09 AM EST Patient had ext done on 06/[address] Eason in [facility]. He said he continues to have pain and swelling. He has taken all of his oxycodone and ibuprofen but still taking the antibiotics. He wanted another script for medication sent to pharmacy. Email sent to [facility] for assistance. documented in this encounter Plan of Treatment Upcoming Encounters Date Type Department Care Team (Late st Contact Info) Description 12/22/2024 2:30 PM EDT Office Visit [facility] OPTOMETRY [address] [place] [address] Carmine, Kimberly, OD [address] [place] [address] documented as of this encounter Visit Diagnoses Not on filedocumented in this encounter Care Teams Bridge Painter Relationship Specialty Start Date End Date Emily Aguiar FNP [address] [place] [address] PCP - General Family Medicine 06/13/22 Emily Aguiar FNP [address] [place] [address] Family Medicine 06/13/22 documented as of this encounter
--- OUTSIDE RECORDS SUMMARY | 2024-11-19 16:29 | XMS_ITS | Encounter Summary ---
Author Organization [employer] Address [address] [facility] [address] [place] [address] Care Team Providers Care Voip Network Technician Name Role Phone [facility] Primary Care Provider [facility] [place] [place] UNIT RECEPTIONIST Unavailable [phone] Reason for Visit * Reason Onset Date Comments telephone call 11/19/2024 Encounter Details Date Type Department Care Team ([facility] Contact Info) Description 11/19/2024 Telephone [facility] MEDICINE [address] [place], [place] [phone] [facility] [address] [place] [address] telephone call Social History Tobacco Use Types Packs/Day Years [...] encounter Miscellaneous Notes * Telephone Encounter - Marcy Childress RN - 11/19/2024 12:01 PM EDT TC placed to [facility] pharmacy to inquire if patient still has refills available on Hyumalog. RN was informed RX has been on hold since 04/2024 because patient did not have insurance at the time. [facility] is now active and RX is processing with an out of pocket cost of $15 and it will be ready for p/u within 30 mins. TC placed to patient [phone] to inform of above message. Patient verbalized understanding and did not have any further questions. Patient to f/u PRN. * Telephone Encounter - Joan Mai - 11/19/2024 11:26 AM EDT Pt walked in requesting a refill for Humalog injection. documented in this encounter Plan of Treatment Upcoming Encounters Date Type Department Care Team (Late st Contact Info) Description 12/22/2024 2:30 PM EDT Office Visit [facility] OPTOMETRY [address] [place], [place] [phone] Carmine, Kimberly, OD [address] [place], [place] [phone] documented as of this encounter Goals Goal [...] documented as of this encounter Care Teams Voip Network Technician Relationship Specialty Start Date End Date Emily Aguiar FNP [address] [place] [address] PCP - General Family Medicine 06/13/22 Emily Aguiar FNP [address] [place] [address] Family Medicine 06/13/22 documented as of this encounter
--- OUTSIDE RECORDS SUMMARY | 2024-11-19 16:29 | XMS_ITS | Encounter Summary ---
Author Organization [employer] Address [address] [place] [address] [address] [place] [address] Care Team Providers Care Speed Reading Teacher Name Role Phone Emily Aguiar [facility] Primary Care Provider [phone] [place] Emily MASTER LAY OUT SPECIALIST Unavailable Encounter Details Date Type Department Care Team (Late st Contact Info) Description 06/20/2022 Abstract [facility] MEDICINE [address] [place] [address] Provider, MD Yaron Social History Tobacco Use Types Packs/Day Years [...] Description 12/22/2024 2:30 PM EDT Office Visit [facility] OPTOMETRY [address] [place] [address] Carmine, Kimberly, OD [address] [place] [address] documented as of this encounter Visit Diagnoses Not on filedocumented in this encounter Care Teams Speed Reading Teacher Relationship Specialty Start Date End Date MarshallEmily FNP [address] [place] [address] PCP - General Family Medicine 06/13/22 Emily Aguiar FNP [address] [place] [address] Family Medicine 06/13/22 documented as of this encounter
--- OUTSIDE RECORDS SUMMARY | 2024-11-19 16:29 | XMS_ITS | Encounter Summary ---
Author Organization [employer] Address [address] [facility] [address] [place] [address] Care Team Providers Care Facilities Technician Name Role Phone [place] [facility] Primary Care Provider [phone] [facility] [employer]PER[employer] Unavailable [phone] Encounter Details Date Type Department Care Team ([facility] Contact Info) Description 11/19/2024 Orders Only GENERIC EXTERNAL DATA DEPARTMENT Provider, Generic External Data Social History Tobacco Use Types Packs/Day Years [...] Description 12/22/2024 2:30 PM EDT Office Visit [facility] [address] [place], [place] [id number] CarmineCorneln, OD [address] [place], [place] [phone] documented as of this encounter Goals Goal Patient Goal Type Associated Problems Recent Progress Patient-Stated? Author Patient will manage their medication General On track( 022 12:26 PM EST) Yes Melissa Lindsay, RN Note: I will continue to try my best to take my insulins as prescribed. documented as of this encounter Procedures Procedure Name Priority Date/Time Associated Diagnosis Comments GLUCOSE, WHOLE BLOOD Routine 11/19/2024 3:59 PM EDT VENOUS BLOOD GAS Routine 11/19/2024 3:19 PM EDT URINALYSIS, COMPLETE, WITH REFLEX TO CULTURE Routine 11/19/2024 3:14 PM EDT BETA-HYDROXYBUTYRATE Routine 11/19/2024 3:14 PM EDT CBC WITH AUTO DIFFERENTIAL Routine 11/19/2024 3:14 PM EDT MAGNESIUM Routine 11/19/2024 3:14 PM EDT HEPATIC FUNCTION PANEL Routine 11/19/2024 3:14 PM EDT BASIC METABOLIC PANEL Routine 11/19/2024 3:14 PM EDT documented in this encounter Results * (ABNORMAL) Glucose, Whole Blood (11/19/2024 3:59 PM EDT) Glucose, Whole Blood 443(HH) 60 - 115 mg/dL [facility] Comment:METER #: [id number] 11/19/2024 3:59 PM EDT 11/19/2024 4:03 PM EDT Generic External Data Provider LAB BLOOD ORDERAB LES Final Result Performing Organization Address [facility] Co de Phone Number [facility] [address] [place] [phone] * (ABNORMAL) VENOUS BLOOD GAS (11/19/2024 3:19 PM EDT) VBG pH 7.40 7.32 - 7.43 [facility] Comment:METER #: [id number] additional_comment: Cb toucheg VBG PCO2 46 mmHg [facility] Comment:METER #: [id number] additional_comment: Cb toucheg VBG PO2 65 mmHg [facility] Comment:METER #: [id number] additional_comment: Cb toucheg VBG Base Excess 3.2 mmol/L [facility] Comment:METER #: [id number] additional_comment: Cb toucheg VBG HCO3 28(H) 22 - 26 mmol/L [facility] Comment:METER #: [id number] additional_comment: Cb toucheg O2 Sat, Gadiel 92.0 % [facility] Comment:METER #: [id number] additional_comment: Cb toucheg 11/19/2024 3:19 PM EDT 11/19/2024 3:23 PM EDT Generic External Data Provider LAB BLOOD ORDERAB LES Final Result Performing Organization Address [facility] Co de Phone Number [facility] [address] [place] [address] [phone] * (ABNORMAL) CBC auto differential (11/19/2024 3:14 PM EDT) White Blood Count 5.9 4.8 - 10.8 X10*3/uL [facility] Red Blood Count 5.57 4.60 - 5.80 X10*6/uL [facility] Hemoglobin 16.9 14.0 - 18.0 g/dl [facility] Hematocrit 45.7 42.0 - 52.0 % [facility] Mean Corpuscular Volume 82.0 80.0 - 98.0 fL [facility] Mean Corpuscular Hemoglobin 30.3 27.0 - 33.0 pg [facility] Mean Corpuscular HGB Conc 37.0(H) 31.0 - 36.0 g/dl [facility] Red Cell Distribution Width 11.9 11.0 - 16.0 % [facility] Platelet Count 196 160 - 400 X10*3/uL [facility] Mean Platelet Volume 12.2 9.4 - 12.4 fL [facility] Neutrophils Percent Auto 65.8 45 - 73 % [facility] Imm Gran Pct Auto 0.2 0.0 - 0.4 % [facility] Lymphocytes Percent Auto 25.0 20 - 40 % [facility] Monocytes Percent Auto 6.8 2 - 11 % [facility] Eosinophils Percent Auto 1.7 0 - 4 % [facility] Basophils Percent Auto 0.5 0 - 2 % [facility] NRBC Pct Auto 0.0 0.0 - 0.2 /100WBC [facility] Neutrophils Absolute Auto 3.9 2.0 - 8.3 x10*3/uL [facility] Imm Gran Abs Auto 0.01 0.00 - 0.03 X10*3/uL [facility] Lymphocytes Absolute Auto 1.5 1.2 - 4.9 X10*3/uL [facility] Monocytes Absolute Auto 0.4 0.1 - 1.2 X10*3/uL [facility] Eosinophils Absolute Auto 0.1 0.0 - 0.4 X10*3/uL [facility] Basophils Absolute Auto 0.0 0.0 - 0.2 X10*3/uL [facility] NRBC Abs Auto 0.000 0.0 - 0.012 X10*3/uL [facility] 11/19/2024 3:14 PM EDT 11/19/2024 3:18 PM EDT Generic External Data Provider LAB BLOOD ORDERAB LES Final Result Performing Organization Address [facility] Co de Phone Number [facility] [address] [place] [address] [phone] Beta-Hydroxybutyrate (11/19/2024 3:14 PM EDT) Pathologist [facility] Beta-Hydroxybut yrate 0.11 0.02 - 0.27 mmol/L [facility] 11/19/2024 3:14 PM EDT 11/19/2024 3:18 PM EDT Generic External Data Provider LAB BLOOD ORDERAB LES Final Result Performing Organization Address [facility] Phone Number [facility] [address] [place] [address] [phone] * Magnesium (11/19/2024 3:14 PM EDT) Pathologist [facility] Magnesium 2.0 1.6 - 2.6 mg/dL [facility] 11/19/2024 3:14 PM EDT 11/19/2024 3:18 PM EDT Generic External Data Provider LAB BLOOD ORDERAB LES Final Result Performing Organization Address [facility] Phone Number [facility] [address] [place] [address] [phone] * (ABNORMAL) Basic Metabolic Panel (11/19/2024 3:14 PM EDT) Sodium 131(L) 135 - 145 mmol/L [facility] Potassium 4.1 3.3 - 5.1 mmol/L [facility] Chloride 96 96 - 108 mmol/L [facility] Carbon Dioxide 26 22 - 29 mmol/L [facility] Anion Gap 13 12 - 20 [facility] Urea Nitrogen (BUN) 12 9 - 16 mg/dL [facility] Creatinine, Serum 1.03 0.5 - 1.4 mg/dL [facility] Creatinine Clr Calc Pharmacy 113.4 [facility] Comment:eGFR (calculated fro m the MDRD study equation) and eCrCl(calculated from the Cockcroft-Gault equation) are based ondifferent parameters and may not yield comparable results.If eCrCl result is absurd, please check patient'sheight/weight. Estimated Glomerular Filt Rate >60 [facility] Comment:Chronic Kidney Disea se: Estimated GFR < 60 mL/min/1.76c8Tctsmp Kidney Disease: Estimated GFR < 15 mL/min/1.73m2 Glucose 519(HH) 60 - 115 mg/dL [facility] Comment:Critical value for t est(s): GLUR Results called to and readback by: DIANE Person calling: JULISSA Date: 11.19.24 Time:1550 Calcium 9.3 8.4 - 10.2 mg/dL [facility] 11/19/2024 3:14 PM EDT 11/19/2024 3:18 PM EDT us Generic External Data Provider LAB BLOOD ORDERAB LES Final Result [facility] [address] [place] [phone] * (ABNORMAL) Hepatic Function Panel (11/19/2024 3:14 PM EDT) Bilirubin, Total 0.4 0.0 - 1.0 mg/dL [facility] Bilirubin, Direct 0.1 0.0 - 0.5 mg/dL [facility] Aspartate Amino Transferase 17 5 - 37 U/L [facility] Alanine Aminotransferase 22 0 - 40 U/L [facility] Total Protein 6.9 6.5 - 8.0 g/dL [facility] Albumin Level 4.3 3.5 - 5.0 g/dL [facility] Alkaline Phosphatase 148(H) 39 - 117 U/L [facility] 11/19/2024 3:14 PM EDT 11/19/2024 3:18 PM EDT us Generic External Data Provider LAB BLOOD ORDERAB LES Final Result [facility] [address] [place] [phone] * (ABNORMAL) Urinalysis, Complete, with Reflex to Culture (11/19/2024 3:14 PM EDT) Color Urine Yellow [facility] Appearance Urine Clear [facility] PH 6.5 5.0 - 9.0 [facility] Glucose Urine UA >=1000(A) Negative mg/dL [facility] Urine Blood Negative Negative [facility] Specific [place] - Urine >=1.030(H) 1.005 - 1.025 [facility] Urine Protein Negative Neg-Trace mg/dL [facility] Urine Ketones Negative Negative mg/dL [facility] Nitrite Urine Negative Negative [facility] Leukocyte Esterase Urine Negative Negative [facility] RBC Urine 0-2 0 - 2 /HPF [facility] Urine WBC 0-5 0 - 5 /HPF [facility] Urine Squamous Epithelial Cell 0-2 0 - 2 /HPF [facility] Urine Bacteria None Seen None Seen [facility] Hyaline Casts, Urine 0-2 0 - 2 /LPF [facility] 11/19/2024 3:14 PM EDT 11/19/2024 3:18 PM EDT Narrative [facility] - 11/19/2024 4:22 PM EDT [id number], Clean Catch us Generic External Data Provider LAB URINE ORDERAB LES Final Result [facility] [address] [place] [phone] documented in this encounter Visit Diagnoses Not on filedocumented in this encounter Additional Health Concerns Assessment Noted Time PHQ-9 Depression Total Score: 6 04/10/20 24 2:20 PM EDT documented as of this encounter Care Teams Facilities Technician Relationship Specialty Start Date End Date Emily Aguiar FNP [address] [place] [address] PCP - General Family Medicine 06/13/22 Emily Aguiar FNP [address] [place] [address] Family Medicine 06/13/22 documented as of this encounter
[2024-11-19] MEDS: Magnesium Sulfate/H2O 2 GM/50 ML PIGGYBACK IV (16:59)
[2024-11-19 17:20] LABS: Glucose, Whole Blood 283 mg/dL (60-115)
[2024-11-19 19:10] VITALS: BP 138/87; PULSE 74; RESP 16; TEMP 37.1; O2SAT 99
== END 2024-11-19 19:31 | disposition home or self-care (01) ==
PROVIDERS: Physician Assistant; Emergency Provider Emergency Medicine; PCP Registered Nurse
DX: E10.65 Type 1 diabetes mellitus with hyperglycemia (principal); R94.31 Abnormal electrocardiogram [ECG] [EKG]; Z79.4 Long term (current) use of insulin; Z79.899 Other long term (current) drug therapy
CPT/HCPCS: 36415; 80048; 80076; 81001; 82010; 82803; 82947; 83735; 85025; 93005; 96374; 99284; J3475; J7120

== ENCOUNTER → 2024-11-19 14:52 | Outpatient (BNV) | payer OTHER, SELFPAY | PROVIDERS: Emergency Provider Emergency Medicine; PCP Registered Nurse; Visit Provider Internal Medicine | DX: R94.31 Abnormal electrocardiogram [ECG] [EKG] (principal); R73.9 Hyperglycemia, unspecified | CPT/HCPCS: 93010 ==

== ENCOUNTER 2024-11-24 16:33 | Emergency (ER) | payer OTHER, SELFPAY ==
[2024-11-24 16:35] VITALS: BP 150/94; PULSE 105; RESP 18; TEMP 37; O2SAT 97; BMI 22.7
--- NOTE | 2024-11-24 16:35 | ED_ITS ---
HPI - General Adult General Chief complaint: General Medical Stated complaint: High blood pressure and sugar Time Seen by Provider: 11/24/24 16:57 Source: patient Mode of arrival: ambulatory Limitations: no limitations History of Present Illness ED Provider: Dr. Barbour HPI narrative: 29-year-old male with uncontrolled type 1 diabetes with current hyperglycemia sent by his primary care doctor for hyperglycemia patient had labs done in the ER patient denies any fevers chills cough shortness of breath he states he has been compliant with his medications recently. He h Related Data Home Medications ?Medication ?Instructions ?Recorded ?Confirmed blood sugar diagnostic (FreeStyle #10 ea 07/04/22 Lite Strips) flash glucose scanning reader #1 ea 07/04/22 (FreeStyle Ning 2 [place]) lancets 33 gauge (TRUEplus Lancets) #100 ea 07/04/22 pen needle, diabetic 32 gauge x #50 ea 07/04/22 5/32 (BD Ultra-Fine Maria D Pen Needle) blood-glucose meter (FreeStyle #1 ea 10/03/22 [place] Lite kit) insulin degludec 100 unit/mL (3 30 unit subcut BID 07/28/24 07/28/24 mL) subcutaneous pen (Tresiba FlexTouch U-100 insulin) insulin lispro 100 unit/mL See Protocol subcut TIDAC 07/28/24 07/28/24 subcutaneous pen Previous Rx's ?Medication ?Instructions ?Recorded acetone (urine) test (Ketone Urine #50 ea 02/12/24 Test strips) flash glucose sensor (FreeStyle #2 ea 02/12/24 Ning 2 Sensor kit) azithromycin 500 mg tablet 500 mg PO DAILY 3 days #3 tabs 07/30/24 cefuroxime axetil 500 mg tablet 500 mg PO Q12H #6 tabs 07/30/24 dextromethorphan-guaifenesin 10 10 ml PO TID #237 mL 07/30/24 mg-100 mg/5 mL oral syrup Allergies Allergy/AdvReac Type Severity Reaction Status Date / Time No Known Allergies Allergy Verified 11/24/24 16:36 Review of Systems 2 Review of Systems: Review of systems: General: Patient denies any fever chills recent illness or falls Musculoskeletal: Denies back pain or body aches or other injuries HEENT: denies headache, runny nose, ear pain Respiratory: denies shortness of breath, cough Cardiovascular: no chest pain or palpitations : denies dysuria, frequency Abdomen: no nausea vomiting denies abdominal pain Extremities: no swelling, no pain Skin: no diaphoresis Yes all other systems are reviewed and are negative PMFSH Past Medical History Medical History Uncontrolled type 1 diabetes mellitus with hyperglycemia Surgical History Hx of vasectomy Family History Family History Father Type 1 diabetes Social History Social History Household Members: Spouse and Children Household Members Other:: fiance, stepdaughter Housing: Apartment Do you presently have visiting nurse or other home services: No Unable to assess alcohol history related to: Unknown Alcohol intake: current Alcohol intake frequency: holidays/special occasions only Patient Tobacco Use Status: Never used Tobacco Smoked in Last 30 Days: No e-Cigarette/Vaping Use: Never Used Use of substances other than those prescribed or required for medical reasons: Yes Substance Use Type: Marijuana Advance Directives: No Advance Directives Information Provided: No Do you have a plan to hurt others: No Plan service: No Physical Exam ED Vital Signs: Vital Signs - 24 hr 11/24/24 16:35 11/24/24 17:15 Temperature 98.6 F Pulse Rate 105 H 97 Respiratory Rate 18 16 Blood Pressure 150/94 H 142/99 H Pulse Oximetry 97 98 Oxygen Delivery Method Room Air Room Air BMI result Body Mass Index 22.7 General: Well-appearing well-nourished in no signs of distress HEENT: Normocephalic atraumatic Neck: No signs of JVD, no masses no tenderness or lymphadenopathy Cardiovascular: Regular rate and rhythm Respiratory: Clear to auscultation bilaterally Abdomen: Soft nontender no masses rectal exam performed guiac negative quality checker confirmed. Extremities: Normal pedal pulses no signs of edema Skin: Dry warm no rashes Back: No tenderness full ROM Course Course Course Narrative: RME, this is a rapid medical exam performed by John Gilmore please refer to primary provider for complete H&P- 29 year old male presents for evaluation of elevated blood sugar. He is a type one diabetic and reports being compliant with his medications. His glucose was over 400 at [facility] and he was sent here for further evaluation and management. Plan for labs Reevaluation(s) Reevaluation #1: Patient did eat here he has had no nausea or vomiting he is happy with the plan to go home Medical Decision Making Medical Decision Making MDM Narrative: blood sugar was 263 out friend the patient's labs are fairly unremarkable there is no signs of DKA there is no anion gap I do feel the patient safe to home follow up with his doctor outpatient Differential Diagnosis Differential Diagnoses: The differential diagnosis associated with the presentation includes DKA hyperglycemia uncontrolled diabetes Lab Data [facility] Lab Attestation statement: I reviewed the patient's lab results. 11/24/24 16:47 11/24/24 16:47 Labs: Lab Results 11/24/24 11/24/24 11/24/24 Range/Units 16:44 16:47 16:52 WBC 4.3 L (4.8-10.8) X10*3/uL RBC 5.75 (4.60-5.80) X10*6/uL Hgb 17.4 (14.0-18.0) g/dl Hct 47.3 (42.0-52.0) % MCV 82.3 (80.0-98.0) fL MCH 30.3 (27.0-33.0) pg MCHC 36.8 H (31.0-36.0) g/dl RDW 11.9 (11.0-16.0) % Plt Count 194 (160-400) X10*3/uL MPV 11.4 (9.4-12.4) fL Immature Gran % (Auto) 0.2 (0.0-0.4) % Neut % (Auto) 53.5 (45-73) % Lymph % (Auto) 35.2 (20-40) % Mathews % (Auto) 8.8 (2-11) % Eos % (Auto) 1.6 (0-4) % Baso % (Auto) 0.7 (0-2) % Lymph # (Auto) 1.5 (1.2-4.9) X10*3/uL Mathews # (Auto) 0.4 (0.1-1.2) X10*3/uL Eos # (Auto) 0.1 (0.0-0.4) X10*3/uL Baso # (Auto) 0.0 (0.0-0.2) X10*3/uL Abs Immat Gran (auto) 0.01 (0.00-0.03) X10*3/uL Absolute Neuts (auto) 2.3 (2.0-8.3) x10*3/uL Absolute Nucleated RBC 0.000 (0.0-0.012) X10*3/uL Nucleated RBC % (auto) 0.0 (0.0-0.2) /100WBC VBG pH 7.42 (7.32-7.43) VBG pCO2 53 mmHg VBG pO2 42 mmHg VBG HCO3 35 H (22-26) mmol/L VBG O2 Saturation 66.0 % VBG Base Excess 9.0 mmol/L Sodium 136 (135-145) mmol/L Potassium 3.6 (3.3-5.1) mmol/L Chloride 95 L (96-108) mmol/L Carbon Dioxide 30 H (22-29) mmol/L Anion Gap 15 (12-20) BUN 12 (9-16) mg/dL Creatinine 0.79 (0.5-1.4) mg/dL Estim Creat Clear Calc 146.5 Estimated GFR > 60 POC Glucose 263 H (60-115) mg/dL Random Glucose 240 H (60-115) mg/dL Calcium 9.8 (8.4-10.2) mg/dL Total Bilirubin 0.6 (0.0-1.0) mg/dL AST 17 (5-37) U/L ALT 22 (0-40) U/L Alkaline Phosphatase 135 H (39-117) U/L Total Protein 7.3 (6.5-8.0) g/dL Albumin 4.5 (3.5-5.0) g/dL Lipase 20 (8-78) U/L Beta-Hydroxybutyrate 0.11 (0.02-0.27) mmol/L Discharge Plan Discharge Clinical Impression: Diabetes mellitus with hyperglycemia, Hypertension Patient Disposition: Home, Self-Care Instructions: Diabetic Hyperglycemia (ED), Hypertension (ED) Additional Instructions: you were seen today in the emergency department for elevated blood sugar. You had labs done there was no signs or concerns for complications of diabetes including diabetic ketoacidosis. Please continue taking medications as prescribed If you have any other concerns please return to the ER. Prescriptions: No Action insulin lispro 100 unit/mL insulin pen See Protocol subcut TIDAC Protocol: Insulin Correction Scale Less than or equal to 110 ---- Give (units): 0 111 to 150 Give (units): 0 151 to 200 Give (units): 2 201 to 250 Give (units): 4 251 to 300 Give (units): 6 301 to 350 Give (units): 8 Greater than 350 Give (units): 10 Call MD if Blood Glucose > : 350 insulin degludec [Tresiba FlexTouch U-100] 100 unit/mL (3 mL) insulin pen 30 unit subcut BID dextromethorphan-guaifenesin 10-100 mg/5 mL Syrup 10 ml PO TID Qty: 237 0RF Rx Instructions: Use for 5 days cefuroxime axetil 500 mg tablet 500 mg PO Q12H Qty: 6 0RF azithromycin 500 mg tablet 500 mg PO DAILY 3 Days Qty: 3 0RF Rx Instructions: start on day 2 of therapy (DME) [facility] See Rx Instructions .ROUTE DIRECTED Qty: 1 Rx Instructions: As directed (DME) FreeStyle Lite Strips Strip See Rx Instructions .ROUTE QID Qty: 10 Rx Instructions: As directed (DME) pen needle, diabetic [BD Ultra-Fine Maria D Pen Needle] 32 gauge x 5/32 needle See Rx Instructions .ROUTE .MEDSUPPLY Qty: 50 Rx Instructions: As directed 7 times day (DME) lancets [TRUEplus Lancets] 33 gauge misc See Rx Instructions .ROUTE QID Qty: 100 Rx Instructions: As directed (DME) blood-glucose meter [FreeStyle [place] Lite] Kit See Rx Instructions .ROUTE QID Qty: 1 Rx Instructions: As directed (DME) Ketone Urine Test Strip See Rx Instructions .Route Qty: 50 1RF Rx Instructions: As directed prn tid (DME) FreeStyle Ning 2 Sensor Kit See Rx Instructions .Route Qty: 2 6RF Rx Instructions: As directed every 14 days Print Language: Tajik
[2024-11-24 16:47] LABS: Glucose, Whole Blood 263 mg/dL (60-115)
[2024-11-24 16:51] LABS: MANUAL DIFF FLAG NO
[2024-11-24 16:53] LABS: Basophils Percent Auto 0.7 % (0-2); Eosinophils Absolute Auto 0.1 X10*3/uL (0.0-0.4); Eosinophils Percent Auto 1.6 % (0-4); Hematocrit 47.3 % (42.0-52.0); Hemoglobin 17.4 g/dl (14.0-18.0); Imm Gran Abs Auto 0.01 X10*3/uL (0.00-0.03); Imm Gran Pct Auto 0.2 % (0.0-0.4); Lymphocytes Absolute Auto 1.5 X10*3/uL (1.2-4.9); Lymphocytes Percent Auto 35.2 % (20-40); Mean Corpuscular HGB Conc 36.8 g/dl (31.0-36.0); Mean Corpuscular Hemoglobin 30.3 pg (27.0-33.0); Mean Corpuscular Volume 82.3 fL (80.0-98.0); Mean Platelet Volume 11.4 fL (9.4-12.4); Monocytes Absolute Auto 0.4 X10*3/uL (0.1-1.2); Monocytes Percent Auto 8.8 % (2-11); Neutrophils Absolute Auto 2.3 x10*3/uL (2.0-8.3); Neutrophils Percent Auto 53.5 % (45-73); Platelet Count 194 X10*3/uL (160-400); Red Blood Count 5.75 X10*6/uL (4.60-5.80); Red Cell Distribution Width 11.9 % (11.0-16.0); White Blood Count 4.3 X10*3/uL (4.8-10.8)
[2024-11-24 16:55] LABS: VBG HCO3 35 mmol/L (22-26); VBG pCO2 53 mmHg; VBG pH 7.42 (7.32-7.43); VBG pO2 42 mmHg
[2024-11-24 16:56] LABS: Venous Blood Gas Refer to POC result
[2024-11-24 17:15] VITALS: BP 142/99; PULSE 97; RESP 16; O2SAT 98
[2024-11-24 17:19] LABS: Alanine Aminotransferase 22 U/L (0-40); Albumin Level 4.5 g/dL (3.5-5.0); Alkaline Phosphatase 135 U/L (39-117); Anion Gap 15 (12-20); Aspartate Amino Transferase 17 U/L (5-37); Beta-Hydroxybutyrate 0.11 mmol/L (0.02-0.27); Bilirubin Total 0.6 mg/dL (0.0-1.0); Blood Urea Nitrogen 12 mg/dL (9-16); Calcium 9.8 mg/dL (8.4-10.2); Carbon Dioxide 30 mmol/L (22-29); Chloride 95 mmol/L (96-108); Creatinine Clr Calc Pharmacy 146.5; Estimated Glomerular Filt Rate > 60; Glucose Random 240 mg/dL (60-115); Lipase 20 U/L (8-78); Potassium 3.6 mmol/L (3.3-5.1); Sodium 136 mmol/L (135-145); Total Protein 7.3 g/dL (6.5-8.0)
[2024-11-24 17:58] VITALS: BP 142/99; PULSE 97; RESP 16; TEMP -17.7; TEMP 0; O2SAT 98
== END 2024-11-24 17:59 | disposition home or self-care (01) ==
PROVIDERS: Physician Assistant; Emergency Provider Student in an Organized Health Care Education/Training Program; PCP Registered Nurse
DX: E10.65 Type 1 diabetes mellitus with hyperglycemia (principal); I10 Essential (primary) hypertension; Z79.4 Long term (current) use of insulin; Z79.899 Other long term (current) drug therapy
CPT/HCPCS: 36415; 80053; 82010; 82803; 82947; 83690; 85025; 99283; 99284

== ENCOUNTER 2024-12-16 16:30 | Outpatient (AMB) | payer OTHER, SELFPAY ==
--- NOTE | 2024-12-16 08:03 | A.OFFVIS_ITS ---
Vital Signs 12/16/24 16:31 Height 6 ft Weight 174 lb 2.643 oz BMI 23.6 BP 146/94 H Blood Pressure Location Rt brachial Position Sitting Pulse 87 Pulse Source Pulse Oximeter Pulse Oximetry (%) 98 Oxygen Delivery Method Room Air Intake Visit Reasons: T1DM Intake Note: Patient presents today for a follow-up on Type 1 Diabetes Mellitus Last Diabetic eye exam was on: DUE Last Podiatry exam was on: Does not see a Certified Dietary Manager Most recent HbA1c: >14.0%, 12/16/2024 UR Ketone Dip Trace Random Glucose- 518 mg/dL, 16:34 PM Entertainment Agent Required: No Accompanied by: Self / Same As Patient Allergies No Known Allergies Allergy (Verified 12/16/24 16:38) HPI Comments Details: 29 YO M with is seen in f/u for T1DM. He was seen as a new consult in January 2024. Initially diagnosed with T1DM in 2016 when presented with hospitalization. Was initially started on treatment with insulin. Since that time he has been seen in the ER with elevated glucose and insulin was adjusted and was seen again in early November with elevated glucose again. His glucose was 518 and he had trace ketones. Initially diagnosed with T1DM in 2016 when presented with hospitalization . Was initially started on treatment with insulin . Current regimen: see below . Treats lows with OJ or candy . Checks sugar after to ensure it is rising. Follows the rule of 15's. Family history of autoimmunity in Father have Type 1 DM Has eyes checked yearly, last eye exam earlier this year, no retinopathy. Denies neuropathy,not sees podiatry. Denies nephropathy, Not on KWAN/ARB. Has HLD, Not on statin. Denies history of CAD. Had diabetes education in past . Diet/Carb counting: No +prior episodes of DKA at time of admission, Denies prior severe episodes of hypoglycemia requiring help or hospitalization. He was seen in the ER in July and insulin was adjusted. insulin lispro 100 unit/mL insulin pen See Protocol subcut TIDAC Protocol: Insulin Correction Scale Less than or equal to 110 ---- Give (units): 0 111 to 150 Give (units): 0 151 to 200 Give (units): 2 201 to 250 Give (units): 4 251 to 300 Give (units): 6 301 to 350 Give (units): 8 Greater than 350 Give (units): 10 Call MD if Blood Glucose > : 350 insulin degludec [Tresiba FlexTouch U-100] 100 unit/mL (3 mL) insulin pen 30 unit subcut BID [facility] Medical History Uncontrolled type 1 diabetes mellitus with hyperglycemia Surgical History Hx of vasectomy Family History Father Type 1 diabetes Social History Household Members: Spouse and Children Household Members Other:: fiance, stepdaughter Housing: Apartment Do you presently have visiting nurse or other home services: No Unable to assess alcohol history related to: Unknown Alcohol intake: current Alcohol intake frequency: holidays/special occasions only Patient Tobacco Use Status: Never used Tobacco e-Cigarette/Vaping Use: Never Used Substance Use Type: Marijuana service: No Physical Exam Vital Signs: BMI result Body Mass Index 23.6 Const Other: Alert and oriented. In no acute distress Absence of Cushingoid features. Absence of acromegalic features. Neck exam reveals nl size thyroid about 15 gms. No thyroid nodules palpable. Heart S1 S2, Reg R/R. No M/R G. Skin exam reveals absence of vitiligo or acanthosis nigricans. no edema Results AMB Hemoglobin A1c AMB Hemoglobin A1c > 14.0 % Last Edit by JOSEPH Sutton on 12/16/24 16 :47 UR Ketone Dip UR Ketone Dip Trace Last Edit by JOSEPH Sutton on 12/16/24 16:49 Assessment & Plan Assessment & Plan (1) Uncontrolled type 1 diabetes mellitus with hyperglycemia: Code(s): E10.65 - Type 1 diabetes mellitus with hyperglycemia Category: Medical Plan: 29-year-old uncontrolled type 1 diabetic with a blood glucose of 517 and trace ketone. He declines 911 transport to the emergency room against medical advice. He was advised the in the event he suffers diabetic coma that he understands he has taken this risk. He will go home immediately intake 20 units of insulin. He is to hydrate with the extra fluids and check his ketone. If his glucose reading does not come down to less than 250 or he is spilling 1+ ketones he will go to the emergency room. We will continue Tresiba at 40 units He was given a new scale starting at 80. See med list We had a discussion onthat he has had poorly controlled diabetes since his diagnosis and that if he continues on this track he will develop significant damage to his eyes kidneys and other organs. I have advised him that I have both crisis worker and 4:30 appointments to accommodate his work schedule. He has agreed to return in 1 week. He will start a freestyle Ning 3+ and was given 2 samples. He will see the early childhood special educator to discuss going on an Omnipod insulin pump. He swims in his physically active in sports and would prefer a tubing less pump. Orders: Orders 2 AMB Hemoglobin A1c Today E10.65 - Type 1 diabetes mellitus with hyperglycemia AMB Ketone Urine Dipstick Today E10.65 - Type 1 diabetes mellitus with hyperglycemia Coding Level of Care Code Est Pt Level 4 (81074) Complex EM visit Add On G2211 Diagnoses Uncontrolled type 1 diabetes mellitus with hyperglycemia E10.65 Time Spent (min) 30 Comment Time spent reviewing labs/provider notes, face to face, chart doc
[2024-12-16 16:31] VITALS: BP 146/94; PULSE 87; O2SAT 98; BMI 23.6
[2024-12-16 16:38] LABS: Glucose, Whole Blood 518 mg/dL (60-115)
--- OUTSIDE RECORDS SUMMARY | 2024-12-16 17:14 | XMS_ITS | Encounter Summary ---
Author Organization [employer] Address [address] [place] [address] Care Team Providers Care Chalk Machine Operator Name Role Phone [facility] Primary Care Provider [phone] [facility] Unavailable [phone] Encounter Details Date Type Department Care Team ([facility] Contact Info) Description 12/16/2024 Orders Only GENERIC EXTERNAL DATA DEPARTMENT Provider, [...] housing situation today? I have jorge parikh 11/24/[address] you li ve. Do you have problems with any of the following? None of the above 11/24/2024 Food Insecurity Answer Date Recorded Within the past 12 months, y ou worried that your food would run out before you got money to buy more: Never True 11/24/2024 Within the past 12 months,th e food you bought just didn't last and you didn't have enough money to get more: Never True 06/2025 Transportation Answer Date Recorded In the past 12 months, has l ack of transportation kept you from medical appts, meetings, work or from getting things needed for daily living? No 11/24/2024 Utilities Answer Date Recorded In the past 12 months, has t he [employer], gas, oil or water company threatened to shut off services in your home? No 11/24/2024 Depression Answer Date Recorded Patient Health Questionnaire-2 Score 2 04/10/2024 Internet Access Answer Date Recorded Internet Access Q1 Yes 11/24/2024 Internet Access Q2 Not on file 11/24/2024 Sex and Gender Information Value Date Recorded Sex Assigned at Male 06/14/2022 2:46 PM EST Legal Sex Male 2:46 PM EST Gender Identity Male 06/14/2022 2:46 PM EST Sexual Orientation Straight 06/14/2022 2: 46 PM EST documented as of this encounter Plan of Treatment Upcoming Encounters Date Type Department Care Team (Late st Contact Info) Description 12/22/2024 2:30 PM EDT Office Visit [facility] [address] [place], [place] [id number] Carmine, Kimberly, OD [address] [place] [address] documented as of this encounter Goals Goal Patient Goal Type Associated Problems Recent Progress Patient-Stated? Author Patient will manage their medication General On track( 022 12:26 PM EST) Yes Melissa Lindsay, RN Note: I will continue to try my best to take my insulins as prescribed. documented as of this encounter Procedures Procedure Name Priority Date/Time Associated Diagnosis Comments GLUCOSE, WHOLE BLOOD Routine 12/16/2024 4:34 PM EDT documented in this encounter Results * (ABNORMAL) Glucose, Whole Blood (12/16/2024 4:34 PM EDT) Glucose, Whole Blood 518() 60 - 115 mg/dL [facility] Comment:METER #: [id number] Testing performed in the Endocrinology Department [address] , [address], [place]. 12/16/2024 4:34 PM EDT 12/16/2024 4:38 PM EDT us Generic External Data Provider LAB BLOOD ORDERAB LES Final Result [facility] [address] [place] [address] [phone] documented in this encounter Visit Diagnoses Not on filedocumented in this encounter Additional Health Concerns Assessment Noted Time PHQ-9 Depression Total Score: 6 04/10/20 24 2:20 PM EDT documented as of this encounter Care Teams Chalk Machine Operator Relationship Specialty Start Date End Date Emily Aguiar FNP [address] [place] [address] PCP - General Family Medicine 06/13/22 Emily Aguiar FNP [address] [place] [address] Family Medicine 06/13/22 documented as of this encounter
== END 2024-12-17 08:02 | disposition home or self-care (01) ==
LOC: HO.ENCR 16:30
PROVIDERS: PCP Registered Nurse; Visit Provider Nurse Practitioner Adult Health
DX: E10.65 Type 1 diabetes mellitus with hyperglycemia (principal)
CPT/HCPCS: 99214

== ENCOUNTER → 2024-12-16 16:30 | Outpatient (BNVA) | payer OTHER, SELFPAY | PROVIDERS: PCP Registered Nurse; Visit Provider Nurse Practitioner Adult Health | DX: E10.65 Type 1 diabetes mellitus with hyperglycemia (principal) | CPT/HCPCS: 81002; 82947; 83036 ==

== ENCOUNTER 2024-12-29 15:55 | Outpatient (AMB) | payer OTHER, SELFPAY ==
--- NOTE | 2024-12-29 16:21 | MHC.AMDMED ---
Intake Intake Visit Reasons: T1DM Fiberglass Quality Technician Required: No Accompanied by: Self / Same As Patient Allergies No Known Allergies Allergy (Verified 12/16/24 16:38) [facility] Comprehensive Diabetes Asmnt Most Recent Diabetes Results: Microalb/Creat Ratio TNP 11/28/23 Creatinine 0.79 mg/dL (0.5-1.4) 11/24/24 Blood Urea Nitrogen 12 mg/dL (9-16) 11/24/24 Sodium 136 mmol/L (135-145) 11/24/24 Potassium 3.6 mmol/L (3.3-5.1) 11/24/24 Chloride 95 mmol/L (96-108) L 11/24/24 Carbon Dioxide 30 mmol/L (22-29) H 11/24/24 Calcium 9.8 mg/dL (8.4-10.2) 11/24/24 AST 17 U/L (5-37) 11/24/24 ALT 22 U/L (0-40) 11/24/24 Total Protein 7.3 g/dL (6.5-8.0) 11/24/24 Albumin 4.5 g/dL (3.5-5.0) 11/24/24 [facility] Medical History Uncontrolled type 1 diabetes mellitus with hyperglycemia Surgical History Hx of vasectomy Family History Father Type 1 diabetes Social History Household Members: Spouse and Children Household Members Other:: fiance, stepdaughter Housing: Apartment Do you presently have visiting nurse or other home services: No Unable to assess alcohol history related to: Unknown Alcohol intake: current Alcohol intake frequency: holidays/special occasions only Patient Tobacco Use Status: Never used Tobacco e-Cigarette/Vaping Use: Never Used Substance Use Type: Marijuana service: No Assessment & Plan Assessment & Plan (1) Uncontrolled type 1 diabetes mellitus with hyperglycemia: Code(s): E10.65 - Type 1 diabetes mellitus with hyperglycemia Plan: Pump Assessment: Type of DM: Type 1 Dx at age: 22 Previous DKA: At diagnosis Current Insulin Rx: MDI Patient takes insulin as prescribed: yes Patient? checks BG with Freestyle Ning 3 Downloaded meter today yes Patient? reports glycemic control as: poor Most recent Hgb A1C: >14 Frequency of low BG: rarely Low BG treatment: Fruit juice Frequency of high BG: Daily Does patient check Ketones? yes Has pt been on a pump in the past? no Reviewed insulin pump basics today with Patient. Explained pros and cons of insulin pumps. Showed pt various pumps, infusion sets, and cgms currently available. Reviewed need to wear pump 24/ and need to change infusion set every 3 days. Also stressed importance of frequent BG checks, 4x daily minimum or use pump that is integrated with CGM.? TDD:70 units Patient demonstrated motivation for continued insulin pump education and understands the need to complete education prior to starting insulin pump for best outcome. I:CHO 1:6 Sensitivity factor- 1:21 Target: 120 mg/dL Downloaded bolus calc tayla on to patient's smart phone. Demonstrated to patient how to calculate carbohydrates meals. Patient works 10 hour days frequently does not have time to stop and eat meals, or take mid day insulin. Reviewed with patient the importance of testing for ketones when glucose levels are high Will follow up for continued education. Next visit will include review of Advanced Carb Counting. Portions of this note were created using voice recognition software, please excuse any words or phrases that may have been misinterpreted. Patient Instructions: DIABETES PROBLEMS HOMECARE INSTRUCTIONS? for High Blood Sugar and When to Test for Ketones Hyperglycemia is the technical term for high blood glucose (blood sugar). High blood sugar happens when the body has too little insulin or when the body can't use insulin properly. What causes hyperglycemia? A number of things can cause hyperglycemia: If you have type 1, you may not have given yourself enough insulin. ? If you have type 2, your body may have enough insulin, but it is not as effective as it should be. You ate more than planned or exercised less than planned. You have stress from an illness, such as a cold or flu. You have other stress, such as family conflicts or school or dating problems. How to lower your blood sugar level. ? Take medications as directed by physician. ? Drink extra water or noncaffeinated, nonsugared drinks to prevented hydration. ? Exercise if you are not sick However, if your blood sugar is above 250 mg/dl, check your urine for ketones. If you have ketones, do not exercise Exercising when ketones are present may make your blood sugar level go even higher. You'll need to work with your doctor to find the safest way for you to lower your blood sugar level. Regularly check blood sugar or urine for sugar and acetone during illness. Diabetic ketoacidosis (DKA) Is serious condition that can lead to diabetic coma (passing out for a long time) or even . When your cells don't get the glucose they need for energy, your body begins to burn fat for energy, which produces ketones. Ketones are chemicals that the body creates when it breaks down fat to use for energy. The body does this when it doesn?t have enough insulin to use glucose, the body?s normal source of energy. When ketones build up in the blood, they make it more acidic. They are a warning sign that your diabetes is out of control or that you are getting sick. Symptoms of Diabetic Ketoacidosis (DKA) ? DKA usually develops slowly. But when vomiting occurs, this life-threatening condition can develop in a few hours. Early symptoms include the following: ? Thirst or a very dry mouth ? Frequent urination ? High blood glucose (blood sugar) levels ? High levels of ketones in the urine ? Then, other symptoms appear: ? Constantly feeling tired ? Dry or flushed skin ? Nausea, vomiting, or abdominal pain ? (Vomiting can be caused by many illnesses, not just ketoacidosis. If vomiting continues for more than 2 hours, contact your health care provider.) ? Difficulty breathing ? Fruity odor on breath ? A hard time paying attention, or confusion When should you test for ketones? It is advisable to check for ketones under the following conditions when: Your blood glucose is higher than 250mg/dl. Feeling nauseated, throwing up, or have pains in your abdominal region. Have a cold or flu. Have general body fatigue. Feel thirsty or have a very dry mouth. Have flushed skin. Have a fruity breath or a hard time breathing. You feel perplexed or in fog. How to Test Urine for Ketones You can detect ketones with a simple urine test using a test strip, similar to a blood testing strip. Ask your health care provider when and how you should test for ketones. Many experts advise to check your urine for ketones when your blood glucose is more than 250 mg/dl. When you are ill (when you have a cold or the flu, for example), check for ketones every 4 to 6 hours. And check every 4 to 6 hours when your blood sugar is more than 250 mg/dl. Also, check for ketones when you have any symptoms of DKA. How to lower your blood sugar level. ? Take medications as directed by physician. ? Drink extra water or noncaffeinated, nonsugared drinks to prevented hydration. ? Exercise if you are not sick However, if your blood sugar is above 250 mg/dl, check your urine for ketones. If you have ketones, do not exercise Exercising when ketones are present may make your blood sugar level go even higher. You'll need to work with your doctor to find the safest way for you to lower your blood sugar level. Regularly check blood sugar or urine for sugar and acetone during illness Coding Level of Care Code Est Pt Level 1 (78021) Diagnoses Uncontrolled type 1 diabetes mellitus with hyperglycemia E10.65
--- OUTSIDE RECORDS SUMMARY | 2024-12-29 17:43 | XMS_ITS | Encounter Summary ---
Author Organization [employer] Address [address] [place] [address] Care Team Providers Care Technical Engineer Name Role Phone [facility] Primary Care Provider [phone] [facility] Unavailable [phone] Encounter Details Date Type Department Care Team ([facility] st Contact Info) Description 09/05/2023 Orders Only [facility] [address] [place], [place] [id number] [employer] [address] [place] [address] Social History Tobacco Use Types Packs/Day Years [...] PM EST documented as of this encounter Functional Status * Over the past 2 weeks, how often have you been bothered by any of the following problems? Question Answer Date of Assessment Author Patient Health Questionnaire-2 Score 4 08/17 9:10 AM EST Tari Marie * Over the last 2 weeks, how often have you been bothered by any of the following problems? Question Answer Date of Assessment Author Feeling nervous, anxious, or on edge 3 08/17 11:17 AM EST Tari Marie Not being able to stop or co ntrol worrying 2 09/06/2023 11:17 AM Tari Mckinley Worrying too much about different things 3 09/06/2023 11:17 AM Tari Mckinley Trouble relaxing 3 09/06/2023 11:17 AM Tari Mckinley Being so restless that it is hard to sit still 3 09/06/2023 11:17 AM Tari Mckinley Becoming easily annoyed or irritable 3 08/17 11:17 AM EST Tari Marie Feeling afraid as if somethi ng awful might happen 3 09/06/2023 11:17 AM Tari Mckinley TOM-7 Total Score 20 09/06/2023 11:17 AM EST Tari Marie * Over the past 2 weeks, how often have you been bothered by any of the following problems? Question Answer Date of Assessment Author Little interest or pleasure in doing things More than half the days 09/06/2023 9:10 AM Tari Mckinley Feeling down, depressed, or hopeless More than half the days 09/06/2023 9:10 AM EST Tari Marie Trouble falling or staying asleep, or sleeping too much Nearly every day 09/06/2023 9:10 AM EST Yoana Mariesa Feeling tired or having little energy Several days 09/06/2023 9:10 AM EST Frank Tari Poor appetite or overeating Nearly every day 9:10 AM EST Tari Marie Feeling bad about yourself - or that you are a failure or have let yourself or your family down Nearly every day 09/06/2023 9:10 AM EST Tari Marie Trouble concentrating on things, such as reading the newspaper or watching television Nearly every day 09/06/2023 9:10 AM EST Tari Marie Moving or speaking so slowly that other people could have noticed? Or the opposite - being so fidgety or restless that you have been moving around a lot more than usual. Not at all 09/06/2023 9:10 AM Tari Mckinley Thoughts that you would be better off or hurting yourself in some way Not at all 09/06/2023 9:10 AM Tari Mckinley Patient Health Questionnaire-9 Score 17 09/06/2023 9:10 AM Tari Mckinley documented as of this encounter Plan of Treatment Upcoming Encounters Date Type Department Care Team (Late st Contact Info) Description 05/06/2025 2:00 PM EDT Office Visit [facility] [address] [place] [address] Kimberly Lou, OD [address] [place] [address] documented as of this encounter Goals Goal [...] documented as of this encounter Care Teams Technical Engineer Relationship Specialty Start Date End Date Emily Aguiar FNP [address] [place] [address] PCP - General Family Medicine 06/13/22 Emily Aguiar FNP [address] [place] [address] Family Medicine 06/13/22 documented as of this encounter
== END 2024-12-29 16:52 | disposition home or self-care (01) ==
LOC: HO.ENCR 15:56
PROVIDERS: PCP Registered Nurse; Visit Provider Registered Nurse Diabetes Educator
DX: E10.65 Type 1 diabetes mellitus with hyperglycemia (principal)

== ENCOUNTER → 2024-12-29 15:55 | Outpatient (BNVA) | payer OTHER, SELFPAY | PROVIDERS: PCP Registered Nurse; Visit Provider Registered Nurse Diabetes Educator | DX: E10.65 Type 1 diabetes mellitus with hyperglycemia (principal) | CPT/HCPCS: 99211 ==

== ENCOUNTER 2025-01-05 15:55 | Outpatient (AMB) | payer OTHER, SELFPAY ==
--- NOTE | 2025-01-05 16:14 | A.OFFVIS_ITS ---
Intake Intake Visit Reasons: 30 MIN Charging Manipulator Required: No Accompanied by: Self / Same As Patient Allergies No Known Allergies Allergy (Verified 12/16/24 16:38) HPI Comprehensive Diabetes Asmnt Most Recent Diabetes Results: Creatinine, (0.5-1.4) 0.79 mg/dL 11/24/24 BUN, (9-16) 12 mg/dL 11/24/24 Sodium, (135-145) 136 mmol/L 11/24/24 Potassium, (3.3-5.1) 3.6 mmol/L 11/24/24 Chloride, (96-108) 95 mmol/L L 11/24/24 Carbon Dioxide, (22-29) 30 mmol/L H 11/24/24 Calcium, (8.4-10.2) 9.8 mg/dL 11/24/24 AST, (5-37) 17 U/L 11/24/24 ALT, (0-40) 22 U/L 11/24/24 Total Protein, (6.5-8.0) 7.3 g/dL 11/24/24 Albumin, (3.5-5.0) 4.5 g/dL 11/24/24 [facility] Medical History Uncontrolled type 1 diabetes mellitus with hyperglycemia Surgical History Hx of vasectomy Family History Father Type 1 diabetes Social History Household Members: Spouse and Children Household Members Other:: fiance, stepdaughter Housing: Apartment Do you presently have visiting nurse or other home services: No Unable to assess alcohol history related to: Unknown Alcohol intake: current Alcohol intake frequency: holidays/special occasions only Patient Tobacco Use Status: Never used Tobacco e-Cigarette/Vaping Use: Never Used Substance Use Type: Marijuana service: No Assessment & Plan Assessment & Plan (1) Uncontrolled type 1 diabetes mellitus with hyperglycemia: Code(s): E10.65 - Type 1 diabetes mellitus with hyperglycemia Plan: Carb Counting Basic Patient presents for appointment carbohydrate counting education. Reviewed the basic principles of carbohydrate counting.? Insulin to carb ratio, and insulin sensitivity factor calculated based on rule of 450 for insulin to carb ratio, and rule of 1500 for insulin sensitivity factor. Instructed patient on the importance of accurate calculation of the amount of carbs per meal for optimal glucose control Reviewed how to calculate mealtime bolus with insulin to carb ratio Reviewed how to calculate correction dose with insulin sensitivity factor Patient's TDD estimate 70 units I:CHO 1:6 Sensitivity factor- 1:21 Target: 120 mg/dL Diet Recall: Breakfast: [employer] egg cheese and sausage biscuit -44gm Lunch: Leftover chicken low main- 60 gm Dinner: Chicken with rice- 80 gm Pt using boluscalc tayla for insulin calcuations Patient is ready to start Omnipod 5 with Dexcom G7 Would prefer using Dexcom G7 sensors and so he can share glucose information with his [employer] Message sent to provider to send prescriptions for Omnipod 5 with Dexcom G7 sensors Patient given healthy plate handout, for resource for carbohydrate counting Patient filled out food logs, estimating carbohydrates at meals, noting glucose number prior to meal, and how many units of insulin taken prior to meals Pt able to calculated needed insulin based on estimated carbohydrate content Instructed patient that there may need to be adjustment to insulin to carb ratio and sensitivity factor based on blood glucose trends. Portions of this note were created using voice recognition software, please excuse any words or phrases that may have been misinterpreted. Patient Instructions: Contact clinic when you receive Omnipod 5 starter kit with pods, and Dexcom G7 sensors for pump training appointment Bring insulin to pump training appointment Coding Level of Care Code Est Pt Level 1 (70899) Diagnoses Uncontrolled type 1 diabetes mellitus with hyperglycemia E10.65
--- OUTSIDE RECORDS SUMMARY | 2025-01-05 17:23 | XMS_ITS | Encounter Summary ---
Author Organization [employer] Address [address] [facility] 7t [place] [address] Care Team Providers Care Shuttle Hand Name Role Phone [place] [facility] Primary Care Provider [phone] [facility] Unavailable [phone] Encounter Details Date Type Department Care Team ([facility] st Contact Info) Description 09/05/2023 Orders Only [facility] MEDICINE [address] [place], [place] [id number] [facility] [address] [place] [address] Social History Tobacco Use Types Packs/Day Years [...] Description 05/06/2025 2:00 PM EDT Office Visit [facility] OPTOMETRY [address] [place] [address] Kimberly Lou, OD [address] [place] [address] documented as of this encounter Goals Goal [...] documented as of this encounter Care Teams Shuttle Hand Relationship Specialty Start Date End Date Emily Aguiar FNP [address] [place] [address] PCP - General Family Medicine 06/13/22 Emily Aguiar FNP [address] [place] [address] Family Medicine 06/13/22 documented as of this encounter
== END 2025-01-05 16:15 | disposition home or self-care (01) ==
LOC: HO.ENCR 15:56
PROVIDERS: PCP Registered Nurse; Visit Provider Registered Nurse Diabetes Educator
DX: E10.65 Type 1 diabetes mellitus with hyperglycemia (principal)

== ENCOUNTER → 2025-01-05 15:55 | Outpatient (BNVA) | payer OTHER, SELFPAY | PROVIDERS: PCP Registered Nurse; Visit Provider Registered Nurse Diabetes Educator | DX: E10.65 Type 1 diabetes mellitus with hyperglycemia (principal) | CPT/HCPCS: 99211 ==

== ENCOUNTER 2025-02-11 15:27 | Outpatient (AMB) | payer OTHER, SELFPAY ==
[2025-02-11 15:29] VITALS: BP 144/90; PULSE 90; O2SAT 97; BMI 24.4
--- NOTE | 2025-02-11 15:29 | MHC.OFFVIS ---
Vital Signs 02/11/25 15:29 Height 6 ft Weight 180 lb 1.883 oz BMI 24.4 BP 144/90 H Blood Pressure Location Lt brachial Position Sitting Pulse 90 Pulse Source Pulse Oximeter Pulse Oximetry (%) 97 Oxygen Delivery Method Room Air Intake Visit Reasons: T1DM Intake Note: Patient present today to follow up on Type 1 Diabetes Mellitus. Last seen by Petra Real on 12/16/2024. Last Diabetic Eye exam: Over a year ago Last Podiatry Visit: Does not see a Model And Mold Maker Plaster Random Glucose: 132 mg/dl HgA1C: >14.0% 12/16/2024 Assembler Rubber Footwear Required: No Accompanied by: Self / Same As Patient Allergies No Known Allergies Allergy (Verified 02/11/25 15:35) Medication List - Last Reconciled 02/11/25 by Delvis Torres MD acetone (urine) test (Ketone Urine Test strips) As directed prn tid azithromycin 500 mg PO DAILY 3 days Baqsimi 3 mg/actuation (glucagon) 3 mg intranasal ONCE PRN 30 days MDD 6 mg NS blood sugar diagnostic (FreeStyle Lite Strips) As directed blood-glucose meter (FreeStyle Soldier Lite kit) As directed cefuroxime axetil 500 mg PO Q12H Dexcom G7 Sensor (blood-glucose sensor) As directed every 10 days NS dextromethorphan-guaifenesin 10-100 mg/5 mL 10 mL PO TID flash glucose scanning reader (FreeStyle Ning 2 [place]) As directed flash glucose sensor (FreeStyle Ning 2 Sensor kit) As directed every 14 days insulin degludec (Tresiba FlexTouch U-100 insulin) 30 units subcut BID insulin lispro See Protocol sliding scale doses subcut TIDAC insulin pump cart,auto,BT,G6/7 (Omnipod 5 G6-G7 Pods (Gen 5) subcutaneous cartridge) As directed every 3 days lancets (TRUEplus Lancets) As directed Omnipod 5 G6-G7 Intro Kt(Gen5) (insulin tablet machine operator cart,aut,G6/7,cntr) As directed to be changed every 3 days NS pen needle, diabetic (BD Ultra-Fine Maria D Pen Needle) As directed 7 times day HPI Comments Details: 29 YO M with is seen in f/u for T1DM. He was seen as a new consult in January 2024. Initially diagnosed with T1DM in 2016 when presented with hospitalization. Was initially started on treatment with insulin. Since that time he has been seen in the ER with elevated glucose and insulin was adjusted and was seen again in early November with elevated glucose again. Last saw Petra Mckeon NP . 12/16/24 Initially diagnosed with T1DM in 2016 when presented with hospitalization . Was initially started on treatment with insulin . Current regimen: see below . Treats lows with OJ or candy . Checks sugar after to ensure it is rising. Follows the rule of 15's. Family history of autoimmunity in Father have Type 1 DM Has eyes checked yearly, last eye exam earlier this year, no retinopathy. Denies neuropathy,not sees podiatry. Denies nephropathy, Not on KWAN/ARB. Has HLD, Not on statin. Denies history of CAD. Had diabetes education in past . Diet/Carb counting: No +prior episodes of DKA at time of admission, Rare episodes of hypoglycemia requiring help or hospitalization. He was seen in the ER in July and insulin was adjusted. insulin lispro 100 unit/mL insulin pen See Protocol subcut TIDAC Protocol: Insulin Correction Scale Less than or equal to 110 ---- Give (units): 0 111 to 150 Give (units): 0 151 to 200 Give (units): 2 201 to 250 Give (units): 4 251 to 300 Give (units): 6 301 to 350 Give (units): 8 Greater than 350 Give (units): 10 Call MD if Blood Glucose > : 350 insulin degludec [Tresiba FlexTouch U-100] 100 unit/mL (3 mL) insulin pen 30 unit subcut BID Dexcom download shows he is wearing the sensor 2/14 days. Average glucose is 323 with standard deviation of 83 and coefficient of variation 25.5%. 5% range with 94% hyperglycemia and no hypoglycemia. The pen which only displaced 2 days shows drop in point of care overnight with a rise after I continue to stay and high blood sugar throughout the day He was meeting with clinical document improvement educator to start an Omnipod pump Needs appt with optho [facility] Medical History Uncontrolled type 1 diabetes mellitus with hyperglycemia Surgical History Hx of vasectomy Family History Father Type 1 diabetes Social History Household Members: Spouse and Children Household Members Other:: fiance, stepdaughter Housing: Apartment Do you presently have visiting nurse or other home services: No Unable to assess alcohol history related to: Unknown Alcohol intake: current Alcohol intake frequency: holidays/special occasions only Patient Tobacco Use Status: Never used Tobacco e-Cigarette/Vaping Use: Never Used Substance Use Type: Marijuana service: No Physical Exam Vital Signs: Last Vital Signs Pulse 90 02/11/25 15:29 BP 144/90 H 02/11/25 15:29 Pulse Ox 97 02/11/25 15:29 Oxygen Delivery Method Room Air 02/11/25 15:29 BMI result Body Mass Index 24.4 Absence of Cushingoid features. Absence of acromegalic features. Neck exam reveals nl size thyroid about 15 gms. No thyroid nodules palpable. No carotid bruits present. Lungs CTA. Heart S1 S2, Reg R/R. No M/R/ G. Skin exam reveals absence of vitiligo or acanthosis nigricans. Abdominal exam reveals Soft NT/ND with NA BS. No organomegaly present. Extrem Other: Visual exam of foot performed. No ulcerations or open lesions. No onchomycosis, no callouses.Pulses 2 + distally. Sensation intact to monofilament exam. Vibratory sensation sensed 10 seconds in right, 10 seconds in left with 128 Hz tuning fork Assessment & Plan Assessment & Plan (1) Uncontrolled type 1 diabetes mellitus with hyperglycemia: Code(s): E10.65 - Type 1 diabetes mellitus with hyperglycemia Category: Medical Plan: This is a 27-year-old white male with a history of type 1 diabetes being managed with basal- bolus insulin with poor dterioated glycemic control and no known microvascular or macrovascular complications. Plan is have the patient with a Dexcom more frequently.. Because of lack of data, unable adjust insulin regimen today. I will also send the patient follow up clinical document improvement educator to possibly initiate the pump Omnipod 5. We will check lipid profile and microalbumin to creatinine ratio. Orders: Orders Lipid Panel Today E10.65 - Type 1 diabetes mellitus with hyperglycemia Microalbumin, Random (w Creat) Today E10.65 - Type 1 diabetes mellitus with hyperglycemia Referrals Podiatry Referral E10.65 - Type 1 diabetes mellitus with hyperglycemia Medications: Changed From pen needle, diabetic (BD Ultra-Fine Maria D Pen Needle) As directed 7 times day 50 ea To pen needle, diabetic As directed 4 times day 200 ea 4RF Coding Level of Care Code Est Pt Level 4 (12668) Diagnoses Uncontrolled type 1 diabetes mellitus with hyperglycemia E10.65
[2025-02-11 15:43] LABS: Glucose, Whole Blood 132 mg/dL (60-115)
--- OUTSIDE RECORDS SUMMARY | 2025-02-11 16:07 | XMS_ITS | Encounter Summary ---
Author Organization [employer] Address [address] [facility] [address] [place] [address] Care Team Providers Care Armor Reconnaissance Specialist Name Role Phone [place] [facility] Primary Care Provider [phone] [facility] Unavailable [phone] Encounter Details Date Type Department Care Team ([facility] st Contact Info) Description 09/05/2023 Orders Only [facility] MEDICINE [address] [place], [place] [phone] [facility] [address] [place] [address] Social History Tobacco Use Types Packs/Day Years [...] Description 05/06/2025 2:00 PM EDT Office Visit [facility] OPTOMETRY [address] [place] [address] Kimberly Lou, OD [address] [place] [address] documented as of this encounter Goals Goal [...] documented as of this encounter Care Teams Armor Reconnaissance Specialist Relationship Specialty Start Date End Date Emily Aguiar FNP [address] [place] [address] PCP - General Family Medicine 06/13/22 Emily Aguiar FNP [address] [place] [address] Family Medicine 06/13/22 documented as of this encounter
== END 2025-02-11 15:59 | disposition home or self-care (01) ==
LOC: HO.ENCR 15:27
PROVIDERS: PCP Registered Nurse; Visit Provider Internal Medicine Endocrinology, Diabetes & Metabolism
DX: E10.65 Type 1 diabetes mellitus with hyperglycemia (principal)
CPT/HCPCS: 99214

== ENCOUNTER → 2025-02-11 15:27 | Outpatient (BNVA) | payer OTHER, SELFPAY | PROVIDERS: PCP Registered Nurse; Visit Provider Internal Medicine Endocrinology, Diabetes & Metabolism | DX: E10.65 Type 1 diabetes mellitus with hyperglycemia (principal) | CPT/HCPCS: 82947 ==

== ENCOUNTER 2025-03-09 07:05 | Outpatient (AMB) | payer OTHER, SELFPAY ==
--- OUTSIDE RECORDS SUMMARY | 2025-03-09 07:07 | XMS_ITS | Encounter Summary ---
Author Organization [employer] Address [address] [facility] [address] [place] [address] Care Team Providers Care Art Objects Supervisor Name Role Phone [place] [facility] Primary Care Provider [phone] [facility] Unavailable [phone] Encounter Details Date Type Department Care Team ([facility] st Contact Info) Description 09/05/2023 Orders Only [facility] MEDICINE [address] [place], [place] [phone] [facility] [address] [place] [address] Social History Tobacco Use Types Packs/Day Years [...] Description 05/06/2025 2:00 PM EDT Office Visit [facility] OPTOMETRY [address] [place] [address] Kimberly Lou, OD [address] [place] [address] documented as of this encounter Goals Goal [...] documented as of this encounter Care Teams Art Objects Supervisor Relationship Specialty Start Date End Date Emily Aguiar FNP [address] [place] [address] PCP - General Family Medicine 06/13/22 Emily Aguiar FNP [address] [place] [address] Family Medicine 06/13/22 documented as of this encounter
--- NOTE | 2025-03-09 07:11 | A.OFFVIS_ITS ---
Intake Intake Visit Reasons: 60 min Core Sucker Required: No Accompanied by: Self / Same As Patient Allergies No Known Allergies Allergy (Verified 02/11/25 15:35) HPI Comprehensive Diabetes Asmnt Most Recent Diabetes Results: Microalb/Creat Ratio TNP 11/28/23 Creatinine, (0.5-1.4) 0.79 mg/dL 11/24/24 BUN, (9-16) 12 mg/dL 11/24/24 Sodium, (135-145) 136 mmol/L 11/24/24 Potassium, (3.3-5.1) 3.6 mmol/L 11/24/24 Chloride, (96-108) 95 mmol/L L 11/24/24 Carbon Dioxide, (22-29) 30 mmol/L H 11/24/24 Calcium, (8.4-10.2) 9.8 mg/dL 11/24/24 AST, (5-37) 17 U/L 11/24/24 ALT, (0-40) 22 U/L 11/24/24 Total Protein, (6.5-8.0) 7.3 g/dL 11/24/24 Albumin, (3.5-5.0) 4.5 g/dL 11/24/24 PFSH Medical History Uncontrolled type 1 diabetes mellitus with hyperglycemia Surgical History Hx of vasectomy Family History Father Type 1 diabetes Social History Household Members: Spouse and Children Household Members Other:: fiance, stepdaughter Housing: Apartment Do you presently have visiting nurse or other home services: No Unable to assess alcohol history related to: Unknown Alcohol intake: current Alcohol intake frequency: holidays/special occasions only Patient Tobacco Use Status: Never used Tobacco e-Cigarette/Vaping Use: Never Used Substance Use Type: Marijuana service: No Assessment & Plan Assessment & Plan (1) Uncontrolled type 1 diabetes mellitus with hyperglycemia: Code(s): E10.65 - Type 1 diabetes mellitus with hyperglycemia Plan: Reviewed insulin pump basics today with Patient. Explained pros and cons of insulin pumps. Showed pt various pumps, infusion sets, and cgms currently available. Reviewed need to wear pump 24/7 and need to change infusion set every 3 days. Also stressed importance of frequent BG checks, 4x daily minimum or use pump that is integrated with CGM.? Pt is trying to get approved for Omnipod 5 with Dexcom G7 he will be using [employer] tayla TDD:70 units Patient demonstrated motivation for continued insulin pump education and has completed his Diabetes education prior to starting insulin pump. I:CHO 1:6 Sensitivity factor- 1:21 Target: 120 mg/dL Downloaded bolus calc tayla on to patient's smart phone. Demonstrated to patient how to calculate carbohydrates meals. Patient works 10 hour days frequently does not have time to stop and eat meals, or take mid day insulin. Reviewed with patient the importance of testing for ketones when glucose levels are high, instruction given to Pt Pt stated he has ketone strips at home If Pt's insurance will not approve omni pod 5 Pt would like to use [employer] Patient Instructions: DIABETES PROBLEMS HOMECARE INSTRUCTIONS? for High Blood Sugar and When to Test for Ketones Hyperglycemia is the technical term for high blood glucose (blood sugar). High blood sugar happens when the body has too little insulin or when the body can't use insulin properly. What causes hyperglycemia? A number of things can cause hyperglycemia: * If you have type 1, you may not have given yourself enough insulin. ? If you have type 2, your body may have enough insulin, but it is not as effective as it should be. * You ate more than planned or exercised less than planned. * You have stress from an illness, such as a cold or flu. * You have other stress, such as family conflicts or school or dating problems. How to lower your blood sugar level. ? Take medications as directed by physician. ? Drink extra water or noncaffeinated, nonsugared drinks to prevented hydration. ? Exercise if you are not sick However, if your blood sugar is above 250 mg/dl, check your urine for ketones. If you have ketones, do not exercise Exercising when ketones are present may make your blood sugar level go even higher. You'll need to work with your doctor to find the safest way for you to lower your blood sugar level. Regularly check blood sugar or urine for sugar and acetone during illness. Diabetic ketoacidosis (DKA) Is serious condition that can lead to diabetic coma (passing out for a long time) or even . When your cells don't get the glucose they need for energy, your body begins to burn fat for energy, which produces ketones. Ketones are chemicals that the body creates when it breaks down fat to use for energy. The body does this when it doesn?t have enough insulin to use glucose, the body?s normal source of energy. When ketones build up in the blood, they make it more acidic. They are a warning sign that your diabetes is out of control or that you are getting sick. Symptoms of Diabetic Ketoacidosis (DKA) ? DKA usually develops slowly. But when vomiting occurs, this life- threatening condition can develop in a few hours. Early symptoms include the following: ? Thirst or a very dry mouth ? Frequent urination ? High blood glucose (blood sugar) levels ? High levels of ketones in the urine ? Then, other symptoms appear: ? Constantly feeling tired ? Dry or flushed skin ? Nausea, vomiting, or abdominal pain ? (Vomiting can be caused by many illnesses, not just ketoacidosis. If vomiting continues for more than 2 hours, contact your health care provider.) ? Difficulty breathing ? Fruity odor on breath ? A hard time paying attention, or confusion When should you test for ketones? It is advisable to check for ketones under the following conditions when: Your blood glucose is higher than 250mg/dl. Feeling nauseated, throwing up, or have pains in your abdominal region. Have a cold or flu. Have general body fatigue. Feel thirsty or have a very dry mouth. Have flushed skin. Have a fruity breath or a hard time breathing. You feel perplexed or in fog. How to Test Urine for Ketones You can detect ketones with a simple urine test using a test strip, similar to a blood testing strip. Ask your health care provider when and how you should test for ketones. Many experts advise to check your urine for ketones when your blood glucose is more than 250 mg/dl. When you are ill (when you have a cold or the flu, for example), check for ketones every 4 to 6 hours. And check every 4 to 6 hours when your blood sugar is more than 250 mg/dl. Also, check for ketones when you have any symptoms of DKA. How to lower your blood sugar level. ? Take medications as directed by physician. ? Drink extra water or noncaffeinated, nonsugared drinks to prevented hydration. ? Exercise if you are not sick However, if your blood sugar is above 250 mg/dl, check your urine for ketones. If you have ketones, do not exercise Exercising when ketones are present may make your blood sugar level go even higher. You'll need to work with your doctor to find the safest way for you to lower your blood sugar level. Regularly check blood sugar or urine for sugar and acetone during illness Coding Level of Care Code Est Pt Level 1 (33489) Diagnoses Uncontrolled type 1 diabetes mellitus with hyperglycemia E10.65
== END 2025-03-09 07:41 | disposition home or self-care (01) ==
LOC: HO.ENCR 07:06
PROVIDERS: PCP Registered Nurse; Visit Provider Registered Nurse Diabetes Educator
DX: E10.65 Type 1 diabetes mellitus with hyperglycemia (principal)
CPT/HCPCS: 99499

== ENCOUNTER 2025-03-09 07:52 | Outpatient (REF) | payer OTHER, SELFPAY ==
[2025-03-09 11:32] LABS: Cholesterol 245 mg/dL (<200); HDL Cholesterol 45 mg/dL (>40); Triglycerides 302 mg/dL (<150)
[2025-03-09 11:39] LABS: Microalbum/Creatinine Ratio Ur 17.2 ug/mg cr (<30)
== END 2025-03-09 07:53 | disposition home or self-care (01) ==
LOC: HO.10HDL 07:52
PROVIDERS: Visit Provider Internal Medicine Endocrinology, Diabetes & Metabolism
DX: E10.65 Type 1 diabetes mellitus with hyperglycemia (principal)
CPT/HCPCS: 36415; 80061; 82043; 82570

== ENCOUNTER 2025-05-13 06:59 | Outpatient (AMB) | payer OTHER, SELFPAY ==
--- OUTSIDE RECORDS SUMMARY | 2025-05-13 07:02 | XMS_ITS | Encounter Summary ---
Author Organization [employer] Address [address] [place] [address] Care Team Providers Care Stamps Or Coins Salesperson Name Role Phone [place] [facility] Primary Care Provider [phone] Emily Aguiar [facility] Unavailable [phone] Encounter Details Date Type Department Care Team (Late Contact Info) Description 06/20/2022 Abstract [facility] MEDICINE [address] [place] [address] Provider, MD Yaron Social History Tobacco Use [...] Encounters Date Type Department Care Team (Late Contact Info) Description 05/15/2025 2:45 PM EDT Office Visit [facility] MEDICINE [address] [place] [id number] Emily Aguiar FNP [address] [place] [address] documented as of this encounter Visit Diagnoses Not on filedocumented in this encounter Care Teams Stamps Or Coins Salesperson Relationship Specialty Start Date End Date Emily Aguiar FNP [address] [place] [address] PCP - General Family Medicine 06/13/22 Emily Aguiar FNP [address] [place] [address] Family Medicine 06/13/22 documented as of this encounter
--- OUTSIDE RECORDS SUMMARY | 2025-05-13 07:02 | XMS_ITS | Encounter Summary ---
Author Organization [employer] Address [address] [facility] [address] [place] [address] Care Team Providers Care Senior Payroll Specialist Name Role Phone Guadalupe Emily HEALTH EDUCATION ASSISTANT Primary Care Provider [phone] Guadalupe [place] HEALTH EDUCATION ASSISTANT Unavailable [phone] Reason for Visit * Reason Onset Date Comments Dental Pain 06/20/2022 Patient had ext done on 06/[address] Eason in [facility]. He said he continues to have pain and swelling. He has taken all of his oxycodone and ibuprofen but still taking the antibiotics. He wanted another script for medication sent to pharmacy. Email sent to [facility] for assistance. Encounter Details Date Type Department Care Team (Late st Contact Info) Description 06/20/[address] [facility] ADULT DENTAL [address] [place], [place] [phone] Dental, Provider, DDS Dental Pain (Patient had ext done on 06/[address] Eason in [facility]. He said he continues to have pain and swelling. He has taken all of his oxycodone and ibuprofen but still taking the antibiotics. He wanted another script for medication sent to pharmacy. Email sent to [facility] for assistance. ) Social History Tobacco Use [...] done on 06/[address] Eason in [facility]. He said he continues to have pain and swelling. He has taken all of his oxycodone and ibuprofen but still taking the antibiotics. He wanted another script for medication sent to pharmacy. Email sent to [facility] for assistance. documented in this encounter Plan of Treatment Upcoming Encounters Date Type Department Care Team (Late st Contact Info) Description 05/15/2025 2:45 PM EDT Office Visit [facility] MEDICINE [address] [place] [address] Emily Aguiar FNP [address] [place] [address] documented as of this encounter Visit Diagnoses Not on filedocumented in this encounter Care Teams Senior Payroll Specialist Relationship Specialty Start Date End Date Emily Aguiar FNP [address] [place] [address] PCP - General Family Medicine 06/13/22 Emily Aguiar FNP [address] [place] [address] Family Medicine 06/13/22 documented as of this encounter
--- OUTSIDE RECORDS SUMMARY | 2025-05-13 07:02 | XMS_ITS | Encounter Summary ---
Author Organization [employer] Address [address] [facility] 7t [place] [address] Care Team Providers Care Cable Tower Operator Name Role Phone [place] [facility] Primary Care Provider [phone] [facility] Unavailable [phone] Encounter Details Date Type Department Care Team ([facility] st Contact Info) Description 09/05/2023 Orders Only [facility] MEDICINE [address] [place], [place] [phone] [facility] [address] [place] [address] Social History Tobacco Use Types Packs/Day Years [...] energy Several days 09/06/2023 9:10 AM EST Yoana Mariesa Poor appetite or overeating Nearly every day 9:10 AM EST Tari Marie Feeling bad about yourself - or that you are a failure or have let yourself or your family down Nearly every day 09/06/2023 9:10 AM EST Tari Marie Trouble concentrating on things, such as reading the newspaper or watching television Nearly every day 09/06/2023 9:10 AM Tari Mckinley Moving or speaking so slowly that other [...] Description 05/15/2025 2:45 PM EDT Office Visit [facility] [address] [place] [address] [facility] [address] [place] [address] documented as of this encounter Goals Goal [...] documented as of this encounter Care Teams Cable Tower Operator Relationship Specialty Start Date End Date Emily Aguiar FNP [address] [place] [address] PCP - General Family Medicine 06/13/22 Emily Aguiar FNP [address] [place] [address] Family Medicine 06/13/22 documented as of this encounter
--- OUTSIDE RECORDS SUMMARY | 2025-05-13 07:02 | XMS_ITS | Encounter Summary ---
Author Organization [employer] Address [address] [facility] 7t [place] [address] Care Team Providers Care Casing Worker Name Role Phone [facility] Primary Care Provider [phone] [facility] Unavailable [phone] Encounter Details Date Type Department Care Team (Latest Contact Info) Description 05/08/2025 Travel Social History Tobacco Use Types Packs/Day Years [...] Description 05/15/2025 2:45 PM EDT Office Visit [facility] [address] [place] [address] Emily Aguiar FNP [address] [place] [address] documented as of this encounter Goals Goal [...] documented as of this encounter Care Teams Casing Worker Relationship Specialty Start Date End Date Emily Aguiar FNP [address] [place] [address] PCP - General Family Medicine 06/13/22 Emily Aguiar FNP [address] [place] [address] Family Medicine 06/13/22 documented as of this encounter
--- OUTSIDE RECORDS SUMMARY | 2025-05-13 07:02 | XMS_ITS | Clinical Summary ---
Author Organization [employer] Address [address] [facility] [address] [place] [address] Care Team Providers Care Pasting Machine Operator Name Role Phone [facility] Primary Care Provider [phone] [facility] Unavailable [phone] Allergies No known active allergies Medications * This document contains information received from the source organization and may not represent a complete record from that organization. Lancets 33G misc Check blood sugar four times daily Active glucose blood test strip 1 each by Other route if needed. Check BS by skin route 4 times every day Active Continuous Blood Gluc Hand Slitter (Intact MedicalStyle Ning 2 [place]) device Use per package instructions Active Blood Pressure kit Use by arm route 1-2 times every day Active Alcohol Swabs (Alcohol Prep) pads For skin prep Active acetaminophen (Tylenol) 500 MG tabletIndications :Bora Chauhan DDKieran Take by mouth. Take 1 tablet (500mg) [...] tabletIndications :Type 1 diabetes mellitus with hyperglycemia (HCC) CHEW 4 TABLETS IF NEEDED FOR LOW [...] episode of recurrent major depressive disorder (CMS/HCC) (HCC) TAKE 1 TABLET BY MOUTH EVERY MORNING 30 tablet 1 12/28/19 24 Active hydrOXYzine HCl (Atarax) 25 MG tabletIndications :Moderate episode of recurrent major depressive disorder (CMS/HCC) (HCC) TAKE 1 TABLET BY MOUTH EVERY 6 HOURS IF NEEDED FOR ANXIETY 120 tablet 12/28/19 24 Active ibuprofen 600 MG tabletIndications :Moderate episode of recurrent major depressive disorder (CMS/HCC) (HCC) TAKE 1 TABLET BY MOUTH EVERY 8 [...] injectionIndicati ons:Type 1 diabetes mellitus with hyperglycemia (HCC) Inject 40 Units under the skin at bedtime. 3 mL 12 05/05/20 24 Active insulin lispro (HumaLOG) 100 unit/ml injectionIndicati [...] miscIndications:T ype 1 diabetes mellitus with hyperglycemia (HCC) USE WITH READER PER PACKAGE INSTRUCTIONS 2 each 3 11/21/19 25 Active Active Problems Problem Noted Date Diagnosed Date PTSD (post-traumatic stress disorder) 09/06/2023 TOM (generalized anxiety disorder) 08/23/2023 Panic attacks 08/23/2023 Moderate episode of recurren t major depressive disorder (CMS/HCC) 08/15/2023 Overview (08/15/2023): PHQ-9 24 START lexapro 10mg daily. Reviewed administration, risks, [...] multiple medications for depression or anxiety simultaneously. Hydroxyzine PRN for insomnia/anxiety STAT referral to for remote BE Contact HC if sx worsen or experiencing thoughts of SI or self harm. Pt has N crisis contact information Primary hypertension 09/13/2022 Overview (08/15/2023): Olmesartan 10mg daily - Aerobic exercise to [...] Assessment & Plan (08/15/2023 5:18 PM EST): Did not take medications today Continue olmesartan 10mg daily Encouraged regular home BP monitoring Update labs Assessment & Plan (01/12/2023 5:19 PM EDT): INCREASE olmesartan to 10mg daily Type 1 diabetes mellitus with hyperglycemia 06/15 Overview (01/12/2023): 32 units lantus Lispro per sliding scale: Inject 8 units for premeal blood sugar 150-199; 10 units for BS 200-249; 12 units for BS 250-299; 14 units for BS 300-349; 16 units for BS >350. [place] [facility] [place] BMP: Pending Microalbumin: Pending Foot Exam: [...] post prandial goal: <180 Assessment & Plan (12/08/2024 5:41 PM EDT): Pt remains hyperglycemic and reports excessive fatigue Lapses in care due to insurance, referrals for current care are utd. Pt prefers iv hydration, which is warranted given persistently elevated hyperglycemia over the last 4-5 days. Expect called to ER Assessment & Plan (05/05/2024 11:55 AM EDT): Glucose is elevated today, ketones positive, recommended patient to visit ED. Discussed medication refills as needed. Ordered a Glucose sensor for continued monitoring. Assessment & Plan (08/15/2023 5:23 PM EST): POC glucose [facility] s/p 10 units lispro in office. Ketones negative in UA. Patient advised to repeat BS at home and encouraged hydration. If no improvement in home BS levels proceed to emergency department. Patient verbalizes understanding and agrees to plan Will prioritize nighttime insulin which patient is able to take consistently. STOP lantus. 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 Encounters Date Type Department Care Team Description 05/08/2025 Travel 05/06/2025 2:00 PM EDT Office Visit [facility] [address] [place] [address] Carmine, Kimberly, OD Diabetes type 1, no ocular involvement (HCC) (Primary Dx); Myopia of both eyes; Dry eyes; White without pressure of peripheral retina of both eyes 05/06/2025 Travel 04/09/2025 Telephone [facility] [address] [place] [address] WinstonEmily, NETWORK ADMIN Referral 02/11/2025 Orders Only GENERIC EXTERNAL DATA DEPARTMENT Provider, Generic External Data from Last 3 Months Family History Medical [...] Sign Reading Time Taken Comments Blood Pressure 147/100 11/24/2024 3:38 PM EDT Pulse 99 11/24/2024 3:38 PM EDT Temperature 37 C (98.6 F) 11/24/2024 3:38 PM EDT Respiratory Rate 18 11/24/2024 3:38 PM EDT Oxygen Saturation 97% 11/24/2024 3:38 PM EDT Inhaled Oxygen Concentration - - Weight 76.4 kg (168 lb 6 oz) 11/24/2024 3:38 PM EDT Height 183 cm (6' 0.05 ) 11/24/2024 3:38 PM EDT Body Mass Index 22.8 11/24/2024 3:38 PM EDT Plan of Treatment Upcoming Encounters Date Type Department Care Team (Late st Contact Info) Description 05/15/2025 2:45 PM EDT Office Visit [facility] [address] [place] [address] [facility] [address] [place] [address] Health Maintenance Due Date Last Done Comments HIV Screening 1994 Diabetes: Foot Exam 2004 Alcohol/Substance Use Screening 2006 Family Planning (PISQ) 2009 HPV Vaccines (1 - Male 3-dose series) 2009 Hepatitis C Screening 2012 DTaP/Tdap/Td Vaccines (1 - Tdap) 2013 Hepatitis B Vaccines (1 of 3 - 19+ 3-dose series) 2013 Pneumococcal Vaccine: Pediatrics (0 to 5 Years) and At-Risk Patients (6 to 49) Years (1 of 2 - PCV) 2013 Dental Oral Exam 12/04/2022 06/05/2022 Dental Prophylaxis 12/04/2022 06/05/2022 Dental X-Ray: Bitewings 06/06/2023 06/05/2022, 05/17 Lipid Panel 06/06/2023 06/06/2022 Diabetes: Urine Protein Screening 11/27/2024 11/28/2023, 06/06/2022 Diabetes: Hemoglobin A1C 02/24/2025 025, 11/28/2023, 08/15/2023, Additional history exists COVID-19 Vaccine ( season) 2025 Influenza Vaccine (#1) 2025 Depression Screening 04/10/2025 04/10/2024, 04/10/20 Dental X-Ray: Full Mouth 06/06/2025 06/05/2022, 08/2021 SDOH Screening 11/24/2025 11/24/2024 Tobacco Screening 11/24/2025 11/24/2024 Disability Screening 05/08/2026 05/08/2025 Eye Exam 05/06/2027 05/06/2025, 04/16, 05/06/2025, Additional history exists Zoster Vaccines (1 of 2) 2044 RSV [...] patient's age to complete this topic Meningococcal B Vaccine Aged Out No l onger eligible based on patient's age to complete [...] Associated Diagnosis Comments GLUCOSE, WHOLE BLOOD Routine 02/11/2025 3:39 PM EDT POCT GLYCATED HEMOGLOBIN, TOTAL Routine 11/24/2024 3:41 PM EDT Type 1 diabetes mellitus with [...] Maintenance Results * (ABNORMAL) Glucose, Whole Blood (02/11/2025 3:39 PM EDT) Glucose, Whole Blood 132(H) 60 - 115 mg/dL [facility] Comment:METER #: [id number] Testing performed in the Endocrinology Department [address] , [address], [facility]. 02/11/2025 3:39 PM EDT 02/11/2025 3:42 PM EDT us Generic External Data Provider LAB BLOOD ORDERAB LES Final Result Performing Organization Address City/State/[facility] Co de Phone Number [facility] [address] [place] [phone] * (ABNORMAL) POCT HGB A1C (11/24/2024 3:41 PM EDT) Hemoglobin A1C 15.0(A) 4.0 - 6.0 % QC Media Lot # [id number] Lot# Expiration Date Blood 11/24/2024 3:41 PM EDT us Ramya Murillo NP POINT OF CARE TEST ENTER/EDIT OR DERABLES Final Result * Albumin, Random Urine W/Creatinine (11/28/2023 1:21 PM EDT) Creatinine, Urine 37.28 mg/dL [facility] Microalbumin Urine <5.0 mg/L H [facility] Microalbum Creatinine Ratio Ur TNP <30 ug/mg cr [facility] Comment:Unable to calculate albumin/creatinine ratio due to lowmicroalbumin or creatinine result. Urine 11/28/2023 1:21 PM EDT 11/28/2023 3:53 PM EDT [facility] LAB URINE ORDERABLES Final Re sult [facility] [address] [place] [phone] * (ABNORMAL) LIPID PANEL, STANDARD (06/06/2022 8:50 AM EST) Chol/HDLC Ratio 4.1 <5.0 (calc) [facility] Cholesterol, Total 219(H) <200 mg/dL [facility] HDL Cholesterol 53 > OR = 40 mg/dL [facility] LDL Cholesterol 144(H) mg/dL (calc) [facility] Comment: Reference range: <100 Desirable range <100 mg/dL for primary prevention; <70 mg/dL for patients with CHD or diabetic patients with > or = 2 CHD risk factors. LDL-C is now calculated using the Per-Alex calculation, which is a validated novel method providing better accuracy than the Friedewald equation in the estimation of LDL-C. Per SEALS et al. AMOR. 2013;310(19): 9613-8044 (http://education.Stion.com/faq/APQ590) Non-HDL Cholesterol 166(H) <130 mg/dL (calc) [facility] Comment: For patients with diabetes plus 1 major ASCVD risk factor, treating to a non-HDL-C goal of <100 mg/dL (LDL-C of <70 mg/dL) is considered a therapeutic option. Triglycerides 104 <150 mg/dL [facility] 06/06/2022 8:50 AM EST [facility] LAB BLOOD ORDERABLES Final Re sult [facility] from Last 3 Months or Most Recently Relevant to Health Maintenance Insurance [facility] , [address] [place] [address] [place] [facility] ADULT Care Teams Pasting Machine Operator Relationship Specialty Start Date End Date Emily Aguiar NETWORK ADMIN [address] [place] [address] PCP - General Family Medicine 06/13/22 Emily AguiarSAI [address] [place] [address] Family Medicine 06/13/22
--- OUTSIDE RECORDS SUMMARY | 2025-05-13 07:02 | XMS_ITS | Encounter Summary ---
Author Organization [employer] Address [address] [place] [id number] Care Team Providers Care Tower Switch Operator Name Role Phone Cosme Emily TRANSPORTATION INSPECTOR Primary Care Provider [phone] CosmeEmily carrizales Primary Care Provider [phone] CosmeEmily carrizales Unavailable [phone] Encounter Details Date Type Department Care Team (Latest Contact Info) Description 06/05/2022 Abstract [facility] CONVERSIONS Dental, Provider, DDS Social History [...] Description 05/15/2025 2:45 PM EDT Office Visit [facility] [address] [place] [address] Emily Aguiar FNP [address] [place] [address] documented as of this encounter Visit Diagnoses Not on filedocumented in this encounter Care Teams Tower Switch Operator Relationship Specialty Start Date End Date Emily Aguiar FNP [address] [place] [address] PCP - General Family Medicine 06/05/22 06/12/22 Emily Aguiar FNP [address] [place] [address] PCP - General Family Medicine 06/13/22 FlorissantEmily FNP [address] [place] [address] Family Medicine 06/13/22 documented as of this encounter
--- NOTE | 2025-05-13 08:09 | A.OFFVIS_ITS ---
Intake Intake Visit Reasons: Omnipod training Traveling Phlebotomist Required: No Accompanied by: Self / Same As Patient Allergies No Known Allergies Allergy (Verified 02/11/25 15:35) HPI Comprehensive Diabetes Asmnt Most Recent Diabetes Results: Microalb/Creat Ratio, (<30) 17.2 ug/mg cr 03/09/25 Cholesterol, (<200) 245 mg/dL H 03/09/25 HDL Cholesterol, (>40) 45 mg/dL 03/09/25 Triglycerides, (<150) 302 mg/dL H 03/09/25 [facility] Medical History Uncontrolled type 1 diabetes mellitus with hyperglycemia Surgical History Hx of vasectomy Family History Father Type 1 diabetes Social History Household Members: Spouse and Children Household Members Other:: fiance, stepdaughter Housing: Apartment Do you presently have visiting nurse or other home services: No Alcohol intake: current Alcohol intake frequency: holidays/special occasions only Patient Tobacco Use Status: Never used Tobacco e-Cigarette/Vaping Use: Never Used Substance Use Type: Marijuana service: No Assessment & Plan Assessment & Plan (1) Uncontrolled type 1 diabetes mellitus with hyperglycemia: Code(s): E10.65 - Type 1 diabetes mellitus with hyperglycemia Plan: Patient presents for pump training for Omnipod 5 pump and Dexcom G7 CGM training today. Omnipod user name:[email or web address] Password:[email or web address] The following topics were reviewed today: -Pump therapy basic concepts: Basal/bolus, insulin to carb ratio, correction factor, insulin on board -Device settings: Bluetooth/mobile connection (if applicable), correct date and time, sound volume -CGM settings(if integrated system): CGM graft views and trend arrows, alerts and alarms, Start new sensor ??? High Alert: off ??? Low Alert: Needs to be turned on ??? Insulin delivery settings Program insulin to carb ratio, correction factor, target blood glucose, suspend or resume insulin delivery, bolus limit and basal limit settings Instructed patient to only use room temperature insulin, how to load cartridge or fill pod, with insulin. Fill tubing and cannula (if applicable) Inserting infusion set or starting pod Troubleshooting after starting new pod or inserting new insulin set: Occlusion, adhesive tape sensitivity, redness Check BG 2 hours after site change Safety information: Importance of a backup plan, for manual injections, proper prescriptions and emergency supplies ketone strips, and rules for testing for ketones Patient was able to insert insulin set today without difficulty. Patient understands the basic concepts of pump therapy, how to give insulin for meals and snacks, how to troubleshoot for hyper and hypoglycemia. Setting verified by [facility] Basal rate(s) (units/hour) : 12 AM? to 12 AM 1.1 units / hr Bolus setting Insulin Carbohydrate Ratio (s) 12 ?AM to 12 AM? 1:8 Correction Factor / Sensitivity Factor 12 ?AM to 12 AM? 1:28 Active Insulin Time:? 3 hours Target(s): 12 ?AM to 12 AM? 120 mg/dL Correction threshold: 120 mg/dL Patient will follow up with [facility] as instructed Patient will contact [facility] with questions or concerns, patient given IT number to support in any technical issues related to insulin pump Portions of this note were created using voice recognition software, please excuse any words or phrases that may have been misinterpreted. Coding Level of Care Code Est Pt Level 1 (01283) Diagnoses Uncontrolled type 1 diabetes mellitus with hyperglycemia E10.65
== END 2025-05-13 08:14 | disposition home or self-care (01) ==
LOC: HO.ENCR 06:59
PROVIDERS: PCP Registered Nurse; Visit Provider Registered Nurse Diabetes Educator
DX: E10.65 Type 1 diabetes mellitus with hyperglycemia (principal)
CPT/HCPCS: 99499